=== PATIENT | female | born 1950 | race African-American/Black ===

== ENCOUNTER 2016-09-08 13:45 | Emergency (ER) | payer MEDICARE, BC ==
--- NOTE | 2016-09-08 14:15 | ER Document Report ---
ED General - General Mode of Arrival: Medic Information source: Patient TRAVEL OUTSIDE OF THE [place] IN LAST 30 DAYS: No - HPI Onset: Other - Refer to HPI Notes Similar symptoms previously: Yes Recently seen / treated by doctor: No <CIRA FLORES - Last Filed: 09/08/16 14:52> <CHAPOMARIBETH - Last Filed: 09/08/16 19:29> - General Stated Complaint: BLURRED VISION Time Seen by Provider: 09/08/16 14:02 Notes: Patient is a 66 year old female presenting to the Emergency Department for vision changes. Patient states on evening as she was driving home she experienced some double vision in her right eye. Patient states she also had some vague blurry vision in the right eye. Patient was able to close her right eye and use her left eye to drive home. Patient states she has had this before but when asked details about the previous event the patient does not stay focused and never answers this question since she begins talking about something else. Patient states she has not been able to drive since this has happened on . Patient states she feels a little tired but denies any weakness to her extremities. Patient also complains of some left lateral thigh pain which she states was onset after being moved from the stretcher to the bed. Patient has a history of hypertension and myasthenia gravis and is taking medications for both. Patient states that Dr. Gongora is sending her to see a "neurologist that she hasn't seen in a long time." Patient has no known drug allergies. PCP Dr. Gongora (CIRA FLORES) - Related Data Allergies/Adverse Reactions: bee pollen [Bee Pollen] Allergy (Verified 09/08/16 15:31) Past Medical History - General Information source: Patient - Social History Smoking Status: Never Smoker Cigarette use (# per day): No Chew tobacco use (# tins/day): No Smoking Education Provided: No Frequency of alcohol use: None Drug Abuse: None Family History: None Patient has suicidal ideation: No Patient has homicidal ideation: No - Past Medical History Cardiac Medical History: Reports: Hx Hypertension Musculoskeltal Medical History: Reports Hx Arthritis - osteoarthritis knees bilaterally Surgical Hx: Negative <CIRA FLORES - Last Filed: 09/08/16 14:52> Review of Systems - Review of Systems Constitutional: No symptoms reported EENT: See HPI, Blurred vision, Double vision Cardiovascular: No symptoms reported Respiratory: No symptoms reported Gastrointestinal: No symptoms reported Genitourinary: No symptoms reported Female Genitourinary: No symptoms reported Musculoskeletal: See HPI, Muscle pain - left lateral thigh Skin: No symptoms reported Hematologic/Lymphatic: No symptoms reported Neurological/Psychological: No symptoms reported -: Yes All other systems reviewed and negative <CIRA FLORES - Last Filed: 09/08/16 14:52> Physical Exam <CIRA FLORES - Last Filed: 09/08/16 14:52> <CHAPOMARIBETH Mccracken - Last Filed: 09/08/16 19:29> - Vital signs Vitals: BP Pulse Ox 171/91 H 100 09/08/16 14:03 09/08/16 14:03 - Notes Notes: GENERAL: Alert, interacts well. Mild distress. HEAD: Normocephalic, atraumatic. EYES: Appear normal. Pupils equal, round, and reactive to light. When looking to the left the patient's left eye does not go all the way to the left. Patient cannot do any extreme lateral gaze. Patient does get confused about which eye to close and has to be re-directed. The exam suggests that there is some extraocular muscle weakness and left eye lateral gaze weakness. ENT: Moist mucus membranes, tongue midline. NECK: Full range of motion. Supple. Trachea midline. LUNGS: Clear to auscultation bilaterally, no wheezes, rales, or rhonchi. No respiratory distress. HEART: Regular rate and rhythm. Loud systolic murmur that radiates into her neck. ABDOMEN: Soft, non-tender. Non-distended. Normal bowel sounds. EXTREMITIES: Moves all 4 extremities spontaneously. Osteoarthritis in the knees bilaterally. Patient in the left lateral thigh with flexion of the hip. Mild edema to the ankles bilaterally. NEUROLOGICAL: Alert and oriented x3. Normal speech. No focal neurological deficits. GSC 15. PSYCH: Normal affect, normal mood. SKIN: Warm, dry, normal turgor. No rashes or lesions noted. (CIRA FLORES) Course <CIRA FLORES - Last Filed: 09/08/16 14:52> - Laboratory Result Diagrams: 09/08/16 14:04 09/08/16 14:04 - Diagnostic Test Radiology reviewed: Image reviewed, Reports reviewed - Left femur x-ray does not show any acute bony abnormality. There is considerable stool seen in the pelvis. <MARIBETH COWAN - Last Filed: 09/08/16 19:29> - Re-evaluation Re-evalutation: 09/08/16 18:21 The patient is resting comfortably at this time. She reports her pain got much better after the pain pill. Her blood pressure was 202 systolic 30 minutes after she received Catapres 0.1 mg p.o. The blood pressure has progressively come down and is now at 102 systolic and the patient is asleep. He will be given 500 mL's of normal saline bolus and then recheck blood pressure (MARIBETH COWAN) - Vital Signs Vital signs: Temp Pulse Resp BP Pulse Ox 14 123/73 100 09/08/16 18:44 09/08/16 18:44 09/08/16 18:44 - Laboratory Laboratory results interpreted by me: 09/08/16 14:04 Calcium 10.4 H Discharge <CIRA FLORES - Last Filed: 09/08/16 14:52> <MARIBETH COWAN - Last Filed: 09/08/16 19:29> - Discharge Clinical Impression: Diplopia, Left thigh pain, Myasthenia gravis High blood pressure Qualifiers: Hypertension type: essential hypertension Qualified Code(s): I10 - Essential ( primary) hypertension Condition: Stable Disposition: HOME, SELF-CARE Additional Instructions: Your vision problems are probably due to the myasthenia gravis. Blood pressure was quite high today, but did come down with some additional medication. Your left thigh pain is probably due to a muscle strain when you are being transferred from the stretcher to the bed. Take the pain medication as dispensed today if needed for your back pain. Follow-up with Dr. Gongora in the office tomorrow for recheck. Referrals: JJ GONGORA MD [ACTIVE STAFF] - Follow up tomorrow Scribe Attestation: 09/08/16 18:31 I personally performed the services described in the documentation, reviewed and edited the documentation which was dictated to the scribe in my presence, and it accurately records my words and actions. (MARIBETH COWAN) Scribe Documentation - Scribe Written by Scribe:: Teodora Gunn 09/08/16 14:22 acting as scribe for :: Chapo <CIRA FLORES - Last Filed: 09/08/16 14:52>
[2016-09-08 15:10] LABS: ABSOLUTE BASOPHILS # (AUTO) 0.1 10^3/uL (0.0-0.2); ABSOLUTE EOSINOPHILS # (AUTO) 0.1 10^3/uL (0.0-0.6); ABSOLUTE LYMPHOCYTES (AUTO) 1.3 10^3/uL (0.5-4.7); ABSOLUTE MONOCYTES (AUTO) 0.4 10^3/uL (0.1-1.4); ABSOLUTE NEUT (AUTO) 4.8 10^3/uL (1.7-8.2); BASOPHILS % (AUTO) 1.1 % (0-2); EOSINOPHILS % (AUTO) 0.9 % (0-6); HEMATOCRIT 41.4 % (36.0-47.0); HGB HCT DIFFERENCE 0.6; LYMPHOCYTES % (AUTO) 19.7 % (13-45); MEAN CORPUSCULAR HEMOGLOBIN 30.5 pg (27.0-33.4); MEAN CORPUSCULAR HGB CONC 33.8 g/dL (32.0-36.0); MEAN CORPUSCULAR VOLUME 90 fl (80-97); MONOCYTES % (AUTO) 6.6 % (3-13); RED CELL DISTRIBUTION WIDTH 13.4 % (11.5-14.0); SEGMENTED NEUTROPHILS % (AUTO) 71.7 % (42-78); WHITE BLOOD COUNT 6.6 10^3/uL (4.0-10.5)
[2016-09-08 15:13] LABS: ALANINE AMINOTRANSFERASE 34 U/L (9-52); ALBUMIN 4.3 g/dL (3.5-5.0); ALKALINE PHOSPHATASE 104 U/L (38-126); ANION GAP 7 (5-19); ASPARTATE AMINO TRANSFERASE 23 U/L (14-36); BILIRUBIN,DIRECT 0.3 mg/dL (0.0-0.4); BILIRUBIN,TOTAL 0.7 mg/dL (0.2-1.3); BLOOD UREA NITROGEN 14 mg/dL (7-20); CALCIUM 10.4 mg/dL (8.4-10.2); CARBON DIOXIDE 29 mmol/L (22-30); CHLORIDE 107 mmol/L (98-107); CREATININE RESULT 0.81 mg/dL (0.52-1.25); GLUCOSE 96 mg/dL (75-110); POTASSIUM 4.3 mmol/L (3.6-5.0); SODIUM 143.2 mmol/L (137-145); TOTAL PROTEIN 7.7 g/dL (6.3-8.2)
--- NOTE | 2016-09-08 15:31 | RADIOLOGY REPORT (SQ) ---
EXAM DESCRIPTION: FEMUR LEFT COMPLETED DATE/TIME: 09/08/2016 2:58 pm REASON FOR STUDY: lateral thugh pain after moving onto bed from stre COMPARISON: None. NUMBER OF VIEWS: Two views. TECHNIQUE: Two radiographic images acquired of the left femur to include hip and knee in at least on e projection. LIMITATIONS: None. FINDINGS: MINERALIZATION: Osteopenia. BONES: No acute fracture. No worrisome bone lesions. SOFT TISSUES: No obvious swelling or foreign body. OTHER: No other significant finding. IMPRESSION: NO RADIOGRAPHIC EVIDENCE OF ACUTE INJURY. TECHNICAL DOCUMENTATION: JOB ID: [id number] [employer]- All Rights Reserved
[2016-09-08] MEDS ORDERED: CLONIDINE HCL 0.1 MG TABLET PO ONE ×2 (15:39→16:41)
[2016-09-08] MEDS ORDERED: ONDANSETRON 4 MG TAB.RAPDIS PO ONE (15:39)
[2016-09-08] MEDS ORDERED: OXYCODONE-ACETAMINOPHEN 5-325 MG TABLET PO ONE (15:39)
[2016-09-08 15:48] LABS: ERYTHROCYTE SEDIMENTATION RATE 13 mm/hr (0-30)
[2016-09-08 15:52] LABS: APPEARANCE,URINE CLEAR; BILIRUBIN,URINE NEGATIVE (NEGATIVE); GLUCOSE, URINE NEGATIVE (NEGATIVE); KETONES,URINE NEGATIVE (NEGATIVE); LEUKOCYTE ESTERASE,URINE NEGATIVE (NEGATIVE); NITRITE,URINE NEGATIVE (NEGATIVE); PROTEIN,URINE NEGATIVE (NEGATIVE); URINE SPECIFIC GRAVITY 1.004; UROBILINOGEN,URINE NEGATIVE mg/dL (<2.0)
[2016-09-08] MEDS ORDERED: NORMAL SALINE 500 ML IV ONE (18:20)
[2016-09-08] MEDS ORDERED: HYDROCODONE/ACETAMINOPHEN 5-325 MG 6 TAB/DSPK PO PRN (19:29)
[2016-09-08 20:16] VITALS: BP 117/68
== END 2016-09-08 20:10 | disposition home or self-care (01) ==
LOC: ER 13:45
DX: H53.2 Diplopia (principal); H53.8 Other visual disturbances; G70.00 Myasthenia gravis without (acute) exacerbation; M79.1 Myalgia; R53.83 Other fatigue; I10 Essential (primary) hypertension
CPT/HCPCS: 99284; 96360; 36415; 85025; 85652; 80053; 81001; 73552; A9270 ×4; J7040; S0119

== ENCOUNTER → 2016-10-11 | Outpatient (CLI) | payer MEDICARE, BC ==
--- NOTE | 2016-10-12 09:58 | RADIOLOGY REPORT (SQ) ---
EXAM DESCRIPTION: MRI HEAD WITHOUT COMPLETED DATE/TIME: 10/11/2016 5:20 pm REASON FOR STUDY: DIPLOPIA (H53.2) H53.2 DIPLOPIA COMPARISON: None. TECHNIQUE: Multiplanar imaging includes non-contrasted T1, T2, FLAIR, and Diffusion with ADC map seq uences. Additional T1 and T2 weighted images through the orbits. Images stored on PACS. LIMITATIONS: None. FINDINGS: ANATOMY: No anomalies. Normal vascular flow voids. Incidental empty sella. CSF SPACES: Normal in size and contour. No hemorrhage. CEREBRUM: High -signal intensity lesions scattered throughout the white matter on FLAIR imaging with distribution suggesting chronic micro-vascular ischemic change. Sulci and gyri normal in size and co ntour. No evidence of hemorrhage, mass or extraaxial fluid collection. POSTERIOR FOSSA: No signal alteration. No hemorrhage. No edema, masses or mass effect. Internal bryan tory canals, cerebello-pontine angles, mastoids normal. DIFFUSION: Negative for acute or sub-acute infarction. ORBITS: No masses. Globes normal. PARANASAL SINUSES: No fluid levels. Mucosa normal. OTHER: No other significant finding. IMPRESSION: MICROVASCULAR ISCHEMIC CHANGE. OTHERWISE UNREMARKABLE NONCONTRAST MRI OF BRAIN AND ORBI TS. EVIDENCE OF ACUTE STROKE: NO. TECHNICAL DOCUMENTATION: JOB ID: [id number] [employer]- All Rights Reserved
== END ==
LOC: RAD 15:04
PROVIDERS: ATTEND Ophthalmology
DX: H53.2 Diplopia (principal)
CPT/HCPCS: 70551

== ENCOUNTER 2017-08-22 07:49 | Emergency (ER) | payer MEDICARE, BC ==
--- NOTE | 2017-08-22 08:38 | ER Document Report ---
ED General - General Mode of Arrival: Ambulatory Information source: Patient TRAVEL OUTSIDE OF THE [place] IN LAST 30 DAYS: No <TINO SALDIVAR - Last Filed: 08/22/17 14:15> <MARIANELA FARIAS - Last Filed: 08/22/17 16:36> - General Chief Complaint: General Weakness Stated Complaint: GENERAL WEAKNESS Time Seen by Provider: 08/22/17 08:09 Notes: 67-year-old female with myasthenia gravis presenting to the emergency department today with complaints of generalized weakness. Patient states she was unable to get up out of her chair this morning and had to have help from her children which is not like her. Patient states she has had diarrhea for the last 2 days which she thinks may have contributed to her weakness. Patient denies any chest pain, nausea, vomiting, or urinary symptoms. (TINO SALDIVAR) - Related Data Allergies/Adverse Reactions: bee pollen [Bee Pollen] Allergy (Verified 08/22/17 07:52) Past Medical History - General Information source: Patient - Social History Smoking Status: Never Smoker Cigarette use (# per day): No Frequency of alcohol use: None Drug Abuse: None Lives with: Family Family History: None - Past Medical History Cardiac Medical History: Reports: Hx Hypertension Musculoskeletal Medical History: Reports Hx Arthritis - osteoarthritis knees bilaterally Surgical Hx: Negative <TINO SALDIVAR - Last Filed: 08/22/17 14:15> Review of Systems - Review of Systems Constitutional: See HPI, Weakness - generalized weakness EENT: No symptoms reported Cardiovascular: denies: Chest pain Respiratory: No symptoms reported Gastrointestinal: See HPI, Diarrhea. denies: Nausea, Vomiting Genitourinary: denies: Dysuria Female Genitourinary: No symptoms reported Musculoskeletal: No symptoms reported Skin: No symptoms reported Hematologic/Lymphatic: No symptoms reported Neurological/Psychological: No symptoms reported -: Yes All other systems reviewed and negative <TINO SALDIVAR - Last Filed: 08/22/17 14:15> Physical Exam <TINO SALDIVAR - Last Filed: 08/22/17 14:15> <MARIANELA FARIAS - Last Filed: 08/22/17 16:36> - Vital signs Vitals: Resp BP Pulse Ox 21 H 169/118 H 99 08/22/17 08:09 08/22/17 08:09 08/22/17 08:09 - Notes Notes: PHYSICAL EXAM GENERAL: Alert, interacts well. No acute distress. HEAD: Normocephalic, atraumatic. EYES: Pupils equal, round, and reactive to light. Extraocular movements intact. Excessive tearing from the right eye. Bilateral ptosis. ENT: Oral mucosa moist, tongue midline. NECK: Full range of motion. Supple. Trachea midline. LUNGS: Clear to auscultation bilaterally, no wheezes, rales, or rhonchi. No respiratory distress. HEART: Regular rate and rhythm. 2/6 holosystolic murmur, no gallops or rubs. ABDOMEN: Soft, non-tender. Non-distended. Bowel sounds present in all 4 quadrants. No guarding, rigidity, or rebound. EXTREMITIES: Moves all 4 extremities spontaneously. Trace pitting edema on the right lower extremity, 1+ pitting edema on the left lower extremity. Radial and dorsalis pedis pulses 2/4 bilaterally. No cyanosis. NEUROLOGICAL: Alert and oriented x3. Normal speech. Client Services Administrator strength 4/5 on the right, 5/5 on the left. Cranial nerves II through XII grossly intact bilaterally. PSYCH: Normal affect, normal mood. SKIN: Warm, dry, normal turgor. No rashes or lesions noted. (TINO SALDIVAR) Course - Laboratory Result Diagrams: 08/22/17 08:37 08/22/17 08:37 <TINO SALDIVAR - Last Filed: 08/22/17 14:15> - Laboratory Result Diagrams: 08/22/17 08:37 08/22/17 08:37 <MARIANELA FARIAS - Last Filed: 08/22/17 16:36> - Re-evaluation Re-evalutation: 08/22/17 11:07 CBC unremarkable, CMP unremarkable, cardiac enzymes negative, urinalysis shows small blood but only 1 RBC, 6 WBCs, 3+ bacteria but 4 squamous epithelial cells , consistent with colonization rather than infection. Chest x-ray shows no acute process, CT scan of the head shows chronic microvascular ischemia but no acute process. NIH stroke scale is a 1 with very slight weakness on her right arm compared to her left arm. This is unchanged for the past month per patient I did discuss this patient with Dr. Gongora who states this is very much her baseline, he would like us to do a trial ambulation with this patient and if she is able to ambulate discharged to home for Friday morning follow-up. 08/22/17 15:35 CBC unremarkable, CMP grossly unremarkable, cardiac enzymes negative, urinalysis shows small, 1 RBC, specific gravity is 1.006 which does not support dehydration although family is quite concerned that she has had 2 days worth of diarrhea which has since resolved but they think because of this 2 days worth of diarrhea she may be dehydrated so I have agreed to give her a liter of normal saline particularly as she does not have any history of congestive heart failure. Chest x-ray shows no acute process. CT scan of head shows mild chronic changes microvascular ischemia, no acute process, no evidence of acute stroke, also no evidence that the slight right hand weakness is due to an old stroke. Initially we attempted to ambulate the patient and she was able to stand on her own but she was unable to take any steps. We then realized that he had been more than 6 hours since she had last had a dose of her pyridostigmine. Patient was given a dose of her pyridostigmine at her usual dose and fed, she now feels somewhat better, was able to stand and ambulate several steps with a walker that we barred from another department. Patient does have a walker at home as well. I discussed in depth with the family that this appears to be a subacute exacerbation of a chronic problem and that it is very important that the patient follow-up with the neuro-insulation cupola charger to home Dr. Gongora has referred her. Also reminded them of the importance of following with with Dr. Gongora as requested on Friday. Patient will be discharged home. I did discuss extensively with the patient and the family that if despite following up with a specialist and further follow-up with Dr. Gongora she continues to get weaker she may end up needing to be admitted and possibly end up needing to go to a senior care as she may not be able to care for herself at home much longer. I have also made a referral to our ED social service assistant to see if there is any help that we can give this patient forgetting transport to and from her appointments as she does not drive and she lives with her son and her daughter who also do not have helper driver's licenses. (MARIANELA FARIAS) - Vital Signs Vital signs: Temp Pulse Resp BP Pulse Ox 97.6 F 16 186/74 H 98 07/13/18 08:15 08/22/17 15:01 08/22/17 15:01 08/22/17 15:01 - Laboratory Laboratory results interpreted by me: 08/22/17 08/22/17 08:09 08:37 Carbon Dioxide 33 H AST 48 H Urine Protein 30 H Urine Blood SMALL H - EKG Interpretation by Me Additional EKG results interpreted by me: 08/22/17 15:38 EKG shows sinus rhythm rate of 66, normal size, normal intervals, no ST segment elevations or depressions, no T-wave inversions per my interpretation. (MARIANELA FAIRAS) Discharge <TINO SALDIVAR - Last Filed: 08/22/17 14:15> <MARIANELA FARIAS - Last Filed: 08/22/17 16:36> - Discharge Clinical Impression: Myasthenia gravis, Generalized weakness Diarrhea Qualifiers: Diarrhea type: unspecified type Qualified Code(s): R19.7 - Diarrhea, unspecified Condition: Stable Disposition: HOME, SELF-CARE Additional Instructions: Dr. Gongora would like to see you in his office first thing Friday. It is also very important that you follow-up with the specialist, a neuro- insulation cupola charger, to whom Dr. Gongora has referred you. This is the specialist will be able to adjust her medications and hopefully help you have more energy. I have also made a referral to our ED social service assistant to see if there is any way that we can arrange help for you to find rides to your appointments. This will likely not happen before your appointment with Dr. Gongora on Friday. Please set an alarm at your house so that you are taking your medications scheduled every 6 hours as they are supposed to be taken. Referrals: JJ GONGORA MD [Primary Care Provider] - 08/25/17 8:00 am Scribe Attestation: 08/22/17 16:35 I personally performed the services described in the documentation, reviewed and edited the documentation which was dictated to the scribe in my presence, and it accurately records my words and actions. (MARIANELA FARIAS) Scribe Documentation - Scribe Written by Scribe:: Teodora Calderon, 08/22/2017 1450 acting as scribe for :: Benjamin <TINO SALDIVAR - Last Filed: 08/22/17 14:15>
[2017-08-22 08:54] LABS: APPEARANCE,URINE SLIGHTLY-CLOUDY; BILIRUBIN,URINE NEGATIVE (NEGATIVE); COLOR,URINE YELLOW; GLUCOSE, URINE NEGATIVE (NEGATIVE); KETONES,URINE NEGATIVE (NEGATIVE); LEUKOCYTE ESTERASE,URINE NEGATIVE (NEGATIVE); NITRITE,URINE NEGATIVE (NEGATIVE); PROTEIN,URINE 30 mg/dL (NEGATIVE); URINE SPECIFIC GRAVITY 1.006; UROBILINOGEN,URINE NEGATIVE mg/dL (<2.0)
--- NOTE | 2017-08-22 08:58 | RADIOLOGY REPORT (SQ) ---
EXAM DESCRIPTION: CHEST 2 VIEWS COMPLETED DATE/TIME: 08/22/2017 8:48 am REASON FOR STUDY: weakness, SOB, fatigue COMPARISON: Two-view chest 12/23/2013 EXAM PARAMETERS: NUMBER OF VIEWS: two views TECHNIQUE: Digital Frontal and Lateral radiographic views of the chest acquired. RADIATION DOSE: NA LIMITATIONS: none FINDINGS: LUNGS AND PLEURA: No opacities, masses or pneumothorax. No pleural effusion. MEDIASTINUM AND HILAR STRUCTURES: No masses or contour abnormalities. HEART AND VASCULAR STRUCTURES: Stable borderline cardiomegaly BONES: Osteopenic. No acute changes HARDWARE: None in the chest. OTHER: No other significant finding. IMPRESSION: NO ACUTE RADIOGRAPHIC FINDING IN THE CHEST. TECHNICAL DOCUMENTATION: JOB ID: [id number] [employer]- All Rights Reserved Reading location - IP/workstation name: [email or web address]
[2017-08-22 09:08] LABS: ABSOLUTE BASOPHILS # (AUTO) 0.1 10^3/uL (0.0-0.2); ABSOLUTE EOSINOPHILS # (AUTO) 0.1 10^3/uL (0.0-0.6); ABSOLUTE MONOCYTES (AUTO) 0.4 10^3/uL (0.1-1.4); ABSOLUTE NEUT (AUTO) 4.8 10^3/uL (1.7-8.2); BASOPHILS % (AUTO) 1.1 % (0-2); EOSINOPHILS % (AUTO) 0.9 % (0-6); HEMATOCRIT 42.1 % (36.0-47.0); HEMOGLOBIN 14.4 g/dL (12.0-15.5); LYMPHOCYTES % (AUTO) 16.3 % (13-45); MEAN CORPUSCULAR HEMOGLOBIN 30.2 pg (27.0-33.4); MEAN CORPUSCULAR HGB CONC 34.2 g/dL (32.0-36.0); MEAN CORPUSCULAR VOLUME 88 fl (80-97); MONOCYTES % (AUTO) 6.3 % (3-13); PLATELET COUNT 284 10^3/uL (150-450); RED BLOOD COUNT 4.76 10^6/uL (3.72-5.28); RED CELL DISTRIBUTION WIDTH 12.8 % (11.5-14.0); SEGMENTED NEUTROPHILS % (AUTO) 75.4 % (42-78); TOTAL CELLS COUNTED % (AUTO) 100 %; WHITE BLOOD COUNT 6.4 10^3/uL (4.0-10.5)
--- NOTE | 2017-08-22 09:23 | RADIOLOGY REPORT (SQ) ---
EXAM DESCRIPTION: CT HEAD WITHOUT COMPLETED DATE/TIME: 08/22/2017 9:01 am REASON FOR STUDY: right sided weakness x 1 month COMPARISON: None. TECHNIQUE: Axial images acquired through the brain without intravenous contrast. Images reviewed wi th bone, brain and subdural windows. Additional sagittal and coronal reconstructions were generated. Images stored on PACS. All CT scanners at this facility use dose modulation, iterative reconstruction, and/or weight based d osing when appropriate to reduce radiation dose to as low as reasonably achievable (ALARA). [facility]: Dose Right [facility]: CareDose [facility]: Dose Right [facility]: Teradose 4D [facility]: [employer] RADIATION DOSE: CT Rad equipment meets quality standard of care and radiation dose reduction techniq ues were employed. CTDIvol: 48.6 mGy. DLP: 929 mGy-cm. mGy. LIMITATIONS: None. FINDINGS: VENTRICLES: Normal CEREBRUM: No masses. No hemorrhage. No midline shift. Areas of low density in the white matter mos t likely due to chronic micro-vascular ischemic change. No evidence for acute infarction. CEREBELLUM: No masses. No hemorrhage. No alteration of density. No evidence for acute infarction. EXTRAAXIAL SPACES: Mild age-related involutional change. No fluid collections. No masses. ORBITS AND GLOBE: No intra- or extraconal masses. Normal contour of globe without masses. CALVARIUM: No fracture. PARANASAL SINUSES: No fluid or mucosal thickening. SOFT TISSUES: No mass or hematoma. OTHER: No other significant finding. IMPRESSION: MILD CHRONIC CHANGES Of MICROVASCULAR ISCHEMIA. NO ACUTE PROCESS. EVIDENCE OF ACUTE STROKE: NO. TECHNICAL DOCUMENTATION: JOB ID: [id number] Quality ID # [id number]: Final reports with documentation of one or more dose reduction techniques (e.g., Au tomated exposure control, adjustment of the mA and/or kV according to patient size, use of iterative reconstruction technique) 2010 [employer]- All Rights Reserved Reading location - IP/workstation name: [email or web address]
[2017-08-22 09:31] LABS: BLOOD UREA NITROGEN 7 mg/dL (7-20); CALCIUM 10.2 mg/dL (8.4-10.2); GLUCOSE 105 mg/dL (75-110)
[2017-08-22 09:32] LABS: ALANINE AMINOTRANSFERASE 24 U/L (9-52); ALBUMIN 4.2 g/dL (3.5-5.0); ALKALINE PHOSPHATASE 89 U/L (38-126); ANION GAP 5 (5-19); ASPARTATE AMINO TRANSFERASE 48 U/L (14-36); BILIRUBIN,DIRECT 0.3 mg/dL (0.0-0.4); BILIRUBIN,TOTAL 1.1 mg/dL (0.2-1.3); CARBON DIOXIDE 33 mmol/L (22-30); CHLORIDE 106 mmol/L (98-107); CREATINE KINASE 94 U/L (30-135); POTASSIUM 3.7 mmol/L (3.6-5.0); SODIUM 144.4 mmol/L (137-145); TOTAL PROTEIN 7.7 g/dL (6.3-8.2)
[2017-08-22 10:17] LABS: CREATINE KINASE MB 1.14 ng/mL (<4.55)
[2017-08-22 10:19] LABS: TROPONIN I < 0.012 ng/mL
[2017-08-22] MEDS ORDERED: PYRIDOSTIGMINE BROMIDE 60 MG TABLET PO ONE (11:59)
[2017-08-22] MEDS ORDERED: NORMAL SALINE 1000 ML 1,000 ML IV ONE (15:08)
[2017-08-22 16:59] VITALS: BP 207/84
--- NOTE | 2017-08-22 19:39 | EKG REPORT ---
SEVERITY:- ABNORMAL ECG - SINUS RHYTHM RIGHT ATRIAL ABNORMALITY : Confirmed by: Hillary Clayton MD 22-Aug-2017 19:38:16
== END 2017-08-22 16:59 | disposition home or self-care (01) ==
LOC: ER 07:49
DX: G70.00 Myasthenia gravis without (acute) exacerbation (principal); R53.1 Weakness; R19.7 Diarrhea, unspecified; I10 Essential (primary) hypertension
CPT/HCPCS: 93005; 99285; 96360; 36415; 87086; 82553; 82550; 85025; 80053; 81001; 84484; 71046; 70450; 93010; A9270; J7030; J3490

== ENCOUNTER 2017-10-19 07:35 | Observation (INO) | payer MEDICARE, BC ==
[2017-10-19] MEDS ORDERED: MORPHINE SULFATE 10 MG/ML INJ IV ONE (07:51)
--- NOTE | 2017-10-19 07:57 | ER Document Report ---
ED General - General Chief Complaint: Hip Pain Stated Complaint: RIGHT LEG PAIN Time Seen by Provider: 10/19/17 07:42 TRAVEL OUTSIDE OF THE [place] IN LAST 30 DAYS: No - HPI Notes: Patient is a 67-year-old female that presents to the emergency department for chief complaint of generalized weakness and right hip pain. Patient presents to the emergency room by EMS for increased weakness in her lower extremities and inability to ambulate. She has a history of myasthenia gravis and has had increasing lower extremity weakness. This morning patient has had a more difficult time ambulating. She was so weak in her legs that she fell backwards landing on the toilet. This exacerbated her chronic right hip pain. She states the pain is located in the right hip and radiates down the lateral right thigh. It is worse with movement and palpation. Relieved with rest. She has not taken any pkeg-ruh-fzeeowk medication for pain. She is usually able to ambulate with a walker. She denies chest pain, shortness of breath, fevers, nausea, vomiting, abdominal pain and dysuria. Past Medical History: Myasthenia gravis, hypertension Past Surgical History: Unknown Social History: Denies drugs alcohol and tobacco Family History: Reviewed and noncontributory for presenting illness Allergies: Reviewed, see documented allergy list. REVIEW OF SYSTEMS: CONSTITUTIONAL : No fever No chills No diaphoresis No recent illness EENT: No vision changes No congestion No sore throat CARDIOVASCULAR: No chest pain No palpitations No shortness of breath RESPIRATORY: No shortness of breath No cough No difficulty breathing GASTROINTESTINAL: No abdominal pain No nausea No vomiting No diarrhea GENITOURINARY: No dysuria No hematuria No difficulty urinating MUSCULOSKELETAL: No back pain Right hip pain No arm pain SKIN: No rashes No lesions LYMPHATIC: No swollen, enlarged glands. NEUROLOGICAL: No lightheadedness No headache weakness No paresthesias PSYCHIATRIC: No anxiety No depression PHYSICAL EXAMINATION: Vital signs reviewed, nursing noted reviewed. GENERAL: Well-appearing, well-nourished and in no acute distress. HEAD: Atraumatic, normocephalic. EYES: Eyes appear normal, extraocular movements intact, sclera anicteric, conjunctiva are normal. ENT: nares patent, oropharynx clear without exudates. Moist mucous membranes. NECK: Normal range of motion, supple without lymphadenopathy LUNGS: Breath sounds clear to auscultation bilaterally and equal. No wheezes rales or rhonchi. HEART: Regular rate and rhythm without murmurs ABDOMEN: Soft, nontender, normoactive bowel sounds. No rebound, guarding, or rigidity. No masses appreciated. EXTREMITIES: Right hip tender and painful ROM. Trace nonpitting lower extremity edema, symmetric bilaterally. NEUROLOGICAL: 5/5 dorsiflexion plantarflexion laterally. Unable to lift either leg against gravity, right weakness greater than left. Sensory intact. A&O 4 PSYCH: Normal mood, normal affect. 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 Nursing notes reviewed. Patient given morphine for pain. 10/19/17 10:30 Patient reevaluated and physical exam is unchanged. She was able to ambulate with a walker and assistance but had an unsteady gait. She is a high risk for falls if ambulating at home alone. Lab work is unremarkable. Her electrolytes are normal. EKG showed no acute ischemia. Chest x-ray shows no pneumonia or other acute process. Patient does not feel comfortable being discharged home because she has unable to stand and ambulate without assistance. Her family wishes for her to be admitted in the hospital. I did explain that she is qualified for an observation stay and she will be discharged home tomorrow. Patient and family understand and would like her to be watched tonight. Case discussed with admitting physician Dr. Bales who accepted admission. Patient stable at time of admission. 10/19/17 10:32 Chest X-Ray 10/19/17 07:50 IMPRESSION: NO ACUTE DISEASE. Hip/Pelvis X-Ray 10/19/17 07:50 IMPRESSION: Severe degenerative arthritis of both hips. Marked degenerative arthritis of the SI joints. Laboratory 10/19/17 10/19/17 10/19/17 07:55 07:55 07:55 WBC 7.5 RBC 4.44 Hgb 13.5 Hct 39.6 MCV 89 MCH 30.3 MCHC 34.0 RDW 12.9 Plt Count 281 Seg Neutrophils % 69.4 Lymphocytes % 20.8 Monocytes % 7.6 Eosinophils % 0.7 Basophils % 1.5 Absolute Neutrophils 5.2 Absolute Lymphocytes 1.6 Absolute Monocytes 0.6 Absolute Eosinophils 0.1 Absolute Basophils 0.1 Sodium 142.2 Potassium 3.8 Chloride 111 H Carbon Dioxide 32 H Anion Gap -1 L BUN 5 L Creatinine 0.70 Est GFR ( Amer) > 60 Est GFR (Non-Af Amer) > 60 Glucose 93 Calcium 10.5 H Troponin I < 0.012 Urine Color Urine Appearance Urine pH Ur Specific [place] Urine Protein Urine Glucose (UA) Urine Ketones Urine Blood Urine Nitrite Urine Bilirubin Urine Urobilinogen Ur Leukocyte Esterase Urine WBC (Auto) Urine RBC (Auto) Urine Bacteria (Auto) Squamous Epi Cells Auto Urine Ascorbic Acid 10/19/17 08:15 WBC RBC Hgb Hct MCV MCH MCHC RDW Plt Count Seg Neutrophils % Lymphocytes % Monocytes % Eosinophils % Basophils % Absolute Neutrophils Absolute Lymphocytes Absolute Monocytes Absolute Eosinophils Absolute Basophils Sodium Potassium Chloride Carbon Dioxide Anion Gap BUN Creatinine Est GFR ( Amer) Est GFR (Non-Af Amer) Glucose Calcium Troponin I Urine Color YELLOW Urine Appearance CLEAR Urine pH 6.0 Ur Specific [place] 1.003 Urine Protein NEGATIVE Urine Glucose (UA) NEGATIVE Urine Ketones NEGATIVE Urine Blood NEGATIVE Urine Nitrite NEGATIVE Urine Bilirubin NEGATIVE Urine Urobilinogen NEGATIVE Ur Leukocyte Esterase NEGATIVE Urine WBC (Auto) 5 Urine RBC (Auto) 1 Urine Bacteria (Auto) 3+ Squamous Epi Cells Auto 2 Urine Ascorbic Acid NEGATIVE - Vital Signs Vital signs: Temp Pulse Resp BP Pulse Ox 97.8 F 13 163/73 H 99 10/19/17 08:01 10/19/17 09:04 10/19/17 09:04 10/19/17 09:04 - Laboratory Result Diagrams: 10/19/17 07:55 10/19/17 07:55 Laboratory results interpreted by me: 10/19/17 07:55 Chloride 111 H Carbon Dioxide 32 H Anion Gap -1 L BUN 5 L Calcium 10.5 H - EKG Interpretation by Me Additional EKG results interpreted by me: 10/19/17 08:05 Normal sinus rhythm, rate 78, normal axis, no ectopy, no QT prolongation Discharge - Discharge Clinical Impression: Weakness Condition: Stable Disposition: ADMITTED OBSERVATION Admitting Provider: Hospitalist Unit Admitted: Medical Floor Referrals: JJ HUGHES MD [Primary Care Provider] - Follow up as needed
[2017-10-19 08:13] LABS: ABSOLUTE BASOPHILS # (AUTO) 0.1 10^3/uL (0.0-0.2); ABSOLUTE EOSINOPHILS # (AUTO) 0.1 10^3/uL (0.0-0.6); ABSOLUTE LYMPHOCYTES (AUTO) 1.6 10^3/uL (0.5-4.7); ABSOLUTE MONOCYTES (AUTO) 0.6 10^3/uL (0.1-1.4); ABSOLUTE NEUT (AUTO) 5.2 10^3/uL (1.7-8.2); BASOPHILS % (AUTO) 1.5 % (0-2); EOSINOPHILS % (AUTO) 0.7 % (0-6); HEMATOCRIT 39.6 % (36.0-47.0); HEMOGLOBIN 13.5 g/dL (12.0-15.5); LYMPHOCYTES % (AUTO) 20.8 % (13-45); MEAN CORPUSCULAR HEMOGLOBIN 30.3 pg (27.0-33.4); MEAN CORPUSCULAR VOLUME 89 fl (80-97); MONOCYTES % (AUTO) 7.6 % (3-13); PLATELET COUNT 281 10^3/uL (150-450); RED BLOOD COUNT 4.44 10^6/uL (3.72-5.28); RED CELL DISTRIBUTION WIDTH 12.9 % (11.5-14.0); SEGMENTED NEUTROPHILS % (AUTO) 69.4 % (42-78); TOTAL CELLS COUNTED % (AUTO) 100 %; WHITE BLOOD COUNT 7.5 10^3/uL (4.0-10.5)
[2017-10-19 08:29] LABS: BLOOD UREA NITROGEN 5 mg/dL (7-20); CALCIUM 10.5 mg/dL (8.4-10.2); CHLORIDE 111 mmol/L (98-107); GLUCOSE 93 mg/dL (75-110); POTASSIUM 3.8 mmol/L (3.6-5.0)
--- NOTE | 2017-10-19 08:30 | EKG REPORT ---
SEVERITY:- NORMAL ECG - SINUS RHYTHM : Confirmed by: Dash Sheridan MD 19-Oct-2017 08:30:03
[2017-10-19 08:34] LABS: CARBON DIOXIDE 32 mmol/L (22-30); SODIUM 142.2 mmol/L (137-145)
[2017-10-19 08:35] LABS: ANION GAP -1 (5-19)
[2017-10-19 08:55] LABS: APPEARANCE,URINE CLEAR; BILIRUBIN,URINE NEGATIVE (NEGATIVE); COLOR,URINE YELLOW; GLUCOSE, URINE NEGATIVE (NEGATIVE); KETONES,URINE NEGATIVE (NEGATIVE); LEUKOCYTE ESTERASE,URINE NEGATIVE (NEGATIVE); NITRITE,URINE NEGATIVE (NEGATIVE); PROTEIN,URINE NEGATIVE (NEGATIVE); URINE SPECIFIC GRAVITY 1.003; UROBILINOGEN,URINE NEGATIVE mg/dL (<2.0)
--- NOTE | 2017-10-19 09:05 | RADIOLOGY REPORT (SQ) ---
EXAM DESCRIPTION: CHEST SINGLE VIEW COMPLETED DATE/TIME: 10/19/2017 8:55 am REASON FOR STUDY: chest pain COMPARISON: None. EXAM PARAMETERS: NUMBER OF VIEWS: One view. TECHNIQUE: Single frontal radiographic view of the chest acquired. RADIATION DOSE: NA LIMITATIONS: None. FINDINGS: LUNGS AND PLEURA: No acute infiltrates or effusions. MEDIASTINUM AND HILAR STRUCTURES: No masses. Contour normal. HEART AND VASCULAR STRUCTURES: The heart is normal. The pulmonary vasculature is normal. BONES: Degenerative changes at the AC joints. HARDWARE: None in the chest. OTHER: Chest leads in place. IMPRESSION: NO ACUTE DISEASE. TECHNICAL DOCUMENTATION: JOB ID: [id number] 2010 [email or web address]- All Rights Reserved Reading location - IP/workstation name: [email or web address]
--- NOTE | 2017-10-19 09:08 | RADIOLOGY REPORT (SQ) ---
EXAM DESCRIPTION: HIP RIGHT AP/LATERAL COMPLETED DATE/TIME: 10/19/2017 8:55 am REASON FOR STUDY: hip pain COMPARISON: None. NUMBER OF VIEWS: Two views. TECHNIQUE: AP pelvis and additional frog-leg view of the right hip. LIMITATIONS: None. FINDINGS: MINERALIZATION: Normal. RIGHT HIP: There is marked degenerative arthritis of the right hip with degenerative sclerosis of the femoral head and acetabulum with subchondral cystic formation within the femoral head and acetabulum . Uniform narrowing of the hip joint. LEFT HIP: Subchondral cystic change and minimal sclerosis at left acetabulum and left femoral head. PUBIS AND ISCHIUM: No fracture. PELVIS: No fracture. SACRUM: There is marked degenerative sclerosis and irregularity of the SI joints noted. LOWER LUMBAR SPINE: Lumbar spondylosis. SOFT TISSUES: No findings. OTHER: No other significant finding. IMPRESSION: Severe degenerative arthritis of both hips. Marked degenerative arthritis of the SI danay nts. TECHNICAL DOCUMENTATION: JOB ID: [id number] [id number] 2010 [employer]- All Rights Reserved Reading location - IP/workstation name: [email or web address]
[2017-10-19] MEDS: AMLODIPINE BESYLATE 5 MG TABLET PO SCH (14:12)
[2017-10-19] MEDS ORDERED: ENOXAPARIN SODIUM INJ 30 MG/0.3 ML DISP.SYRIN SUBCUT ONE (15:00)
[2017-10-19] MEDS: RINGERS SOLUTION,LACTATED 1,000 ML IV PRN (15:10)
--- NOTE | 2017-10-19 16:37 | PDOC H&P ---
History of Present Illness Admission Date/PCP: 10/19/17 10:45 JJ HUGHES MD History of Present Illness: JULIANN OROZCO is a 67 year old female with known Myasthenia gravis. The patient usually is able to ambulate with her walker. She states that in the last couple of days she has had right lower extremity pain and that she has not been able to walk for this reason. She states that for this reason she has not been able to get her self to the bathroom and that her family cannot help her. As I see her eyelids bilaterally are barely open, but she has only just taken her mestinon in front of me today. Past Medical History Cardiac Medical History: Reports: Hypertension Neurological Medical History: Reports: Other - Myasthenia gravis Musculoskeltal Medical History: Reports: Arthritis - osteoarthritis knees bilaterally Social History Smoking Status: Unknown if Ever Smoked Frequency of Alcohol Use: None Hx Recreational Drug Use: No Drugs: None Hx Prescription Drug Abuse: No Family History Family History: None Parental Family History Reviewed: Yes Children Family History Reviewed: Yes Sibling(s) Family History Reviewed.: Yes Medication/Allergy Home Medications: Amlodipine Besylate [Norvasc 5 mg Tablet] 5 mg PO DAILY 12/23/13 Pyridostigmine [place] [Mestinon 60 mg Tablet] 60 mg PO Q6 12/23/13 Allergies/Adverse Reactions: bee pollen [Bee Pollen] Allergy (Verified 08/22/17 07:52) Review of Systems Constitutional: PRESENT: weakness. ABSENT: chills, fever(s) Eyes: ABSENT: visual disturbances Ears: ABSENT: hearing changes Cardiovascular: ABSENT: chest pain, dyspnea on exertion, orthropnea Respiratory: ABSENT: cough, dyspnea, sputum Gastrointestinal: ABSENT: abdominal pain, bloating, diarrhea, heartburn, nausea , vomiting Musculoskeletal: PRESENT: other - Right hip and leg pain. Pt states that the right leg is turned outside. Integumentary: ABSENT: lesions, rash, wounds Neurological: PRESENT: frequent falls. ABSENT: convulsions, paresthesias, syncope, vertigo Psychiatric: ABSENT: anxiety, depression Endocrine: ABSENT: cold intolerance, polydipsia, polyphagia, polyuria Hematologic/Lymphatic: PRESENT: easy bleeding, easy bruising Physical Exam Vital Signs: Temp Pulse Resp BP Pulse Ox 98.4 F 84 18 150/65 H 100 10/19/17 15:09 10/19/17 15:09 10/19/17 15:09 10/19/17 15:10/19/17 15:09 Intake & Output 10/18/17 10/19/17 10/20/17 06:59 06:59 06:59 Weight 74.5 kg General appearance: PRESENT: no acute distress, cooperative Eye exam: PRESENT: other - Bilateral Ptosis. The patient takes mestinon 60mg [id number]. She has just only taken her medication this morning as I enter the room. Ear exam: PRESENT: normal external ear exam. ABSENT: bleeding, drainage Mouth exam: PRESENT: dry mucosa, neck supple, tongue midline Neck exam: ABSENT: JVD, lymphadenopathy, tenderness, thyromegaly Respiratory exam: PRESENT: other - No increased work of breathing.. ABSENT: rales, rhonchi, wheezes Cardiovascular exam: PRESENT: RRR, other - No lateral PMI. No thrills.. ABSENT : diastolic murmur, rubs, systolic murmur Pulses: PRESENT: other - Diminished distal pulses. GI/Abdominal exam: PRESENT: soft. ABSENT: hernia, mass, organolmegaly, tenderness Extremities exam: ABSENT: clubbing, pedal edema, tenderness Musculoskeletal exam: PRESENT: normal inspection. ABSENT: deformity, dislocation, tenderness Neurological exam: PRESENT: alert, awake, oriented to person, oriented to place , oriented to time, oriented to situation, CN II-XII grossly intact. ABSENT: motor sensory deficit Psychiatric exam: PRESENT: appropriate affect, normal mood Skin exam: PRESENT: dry, intact, warm Results Laboratory Results: 10/19/17 10/19/17 10/19/17 07:55 07:55 07:55 WBC 7.5 RBC 4.44 Hgb 13.5 Hct 39.6 MCV 89 MCH 30.3 MCHC 34.0 RDW 12.9 Plt Count 281 Seg Neutrophils % 69.4 Lymphocytes % 20.8 Monocytes % 7.6 Eosinophils % 0.7 Basophils % 1.5 Absolute Neutrophils 5.2 Absolute Lymphocytes 1.6 Absolute Monocytes 0.6 Absolute Eosinophils 0.1 Absolute Basophils 0.1 Sodium 142.2 Potassium 3.8 Chloride 111 H Carbon Dioxide 32 H Anion Gap -1 L BUN 5 L Creatinine 0.70 Est GFR ( Amer) > 60 Glucose 93 Calcium 10.5 H Troponin I < 0.012 Urine Color Urine Appearance Urine pH Ur Specific [place] Urine Protein Urine Glucose (UA) Urine Ketones Urine Blood Urine Nitrite Urine Bilirubin Urine Urobilinogen Ur Leukocyte Esterase Urine WBC (Auto) Urine RBC (Auto) Urine Bacteria (Auto) Squamous Epi Cells Auto Urine Ascorbic Acid 10/19/17 08:15 WBC RBC Hgb Hct MCV MCH MCHC RDW Plt Count Seg Neutrophils % Lymphocytes % Monocytes % Eosinophils % Basophils % Absolute Neutrophils Absolute Lymphocytes Absolute Monocytes Absolute Eosinophils Absolute Basophils Sodium Potassium Chloride Carbon Dioxide Anion Gap BUN Creatinine Est GFR ( Amer) Glucose Calcium Troponin I Urine Color YELLOW Urine Appearance CLEAR Urine pH 6.0 Ur Specific [place] 1.003 Urine Protein NEGATIVE Urine Glucose (UA) NEGATIVE Urine Ketones NEGATIVE Urine Blood NEGATIVE Urine Nitrite NEGATIVE Urine Bilirubin NEGATIVE Urine Urobilinogen NEGATIVE Ur Leukocyte Esterase NEGATIVE Urine WBC (Auto) 5 Urine RBC (Auto) 1 Urine Bacteria (Auto) 3+ Squamous Epi Cells Auto 2 Urine Ascorbic Acid NEGATIVE Impressions: Chest X-Ray 10/19/17 07:50 IMPRESSION: NO ACUTE DISEASE. Hip/Pelvis X-Ray 10/19/17 07:50 IMPRESSION: Severe degenerative arthritis of both hips. Marked degenerative arthritis of the SI joints. Assessment & Plan - Diagnosis (1) Right leg pain Is this a current diagnosis for this admission?: Yes Plan: X-ray of the right hip and leg were negative for fracture. I will check a CT as it does appear that the leg is externally rotated. (2) Myasthenia gravis Is this a current diagnosis for this admission?: Yes Plan: Continue mestinon. (3) Weakness Is this a current diagnosis for this admission?: Yes Plan: The patient will need rehab. (4) Ambulatory dysfunction Is this a current diagnosis for this admission?: Yes Plan: Will need rehab. - Time Time Spent: 50 to 70 Minutes Medications reviewed and adjusted accordingly: Yes Anticipated discharge: Acute Rehab - Inpatient Certification Based on my medical assessment, after consideration of the patient's comorbidities, presenting symptoms, or acuity I expect that the services needed warrant INPATIENT care.: No I certify that my determination is in accordance with my understanding of Medicare's requirements for reasonable and necessary INPATIENT services [42 CFR 412.3e].: No Medical Necessity: Risk of Complication if Not Cared For in Hospital, Risk of Diagnosis Which Will Require Inpatient Eval/Care/Monitoring
[2017-10-19] MEDS: PYRIDOSTIGMINE BROMIDE 60 MG TABLET PO SCH (17:20)
--- NOTE | 2017-10-19 18:39 | RADIOLOGY REPORT (SQ) ---
EXAM DESCRIPTION: CT RT LOWER EXTREMITY WITHOUT COMPLETED DATE/TIME: 10/19/2017 5:14 pm REASON FOR STUDY: rt hip pain/right leg pain R53.1 WEAKNESS COMPARISON: None. TECHNIQUE: CT scan of the right hip and femur performed without intravenous or oral contrast. Image s reviewed with soft tissue and bone windows. Reconstructed coronal and sagittal MPR images reviewed . All images stored on PACS. All CT scanners at this facility use dose modulation, iterative reconstruction, and/or weight based d osing when appropriate to reduce radiation dose to as low as reasonably achievable (ALARA). [facility]: Dose Right [facility]: CareDose [facility]: Dose Right [facility]: Teradose 4D [facility]: Smart Blottr RADIATION DOSE: CT Rad equipment meets quality standard of care and radiation dose reduction techniq ues were employed. CTDIvol: 4.1 mGy. DLP: 236 mGy-cm. mGy. LIMITATIONS: None. FINDINGS: VISUALIZED PELVIC BONES: No acute fracture. No worrisome bone lesions. RIGHT HIP AND FEMUR: No acute fracture or dislocation. Marked degenerative changes in the hip with j oint space loss, sclerosis, subchondral cysts, and osteophytes. SOFT TISSUES: No significant findings. OTHER: No other significant finding. IMPRESSION: MARKED DEGENERATIVE CHANGES IN THE RIGHT HIP. NO ACUTE FINDINGS IN THE RIGHT HIP, ADJAC ENT RIGHT HEMIPELVIS, OR RIGHT FEMUR. TECHNICAL DOCUMENTATION: JOB ID: [id number] Quality ID # [id number]: Final reports with documentation of one or more dose reduction techniques (e.g., Au tomated exposure control, adjustment of the mA and/or kV according to patient size, use of iterative reconstruction technique) 2010 [employer]- All Rights Reserved Reading location - IP/workstation name: [email or web address]
[2017-10-20] MEDS ORDERED: PYRIDOSTIGMINE BROMIDE 60 MG TABLET ONE (01:45)
[2017-10-20] MEDS: PYRIDOSTIGMINE BROMIDE 60 MG TABLET PO SCH ×5 (01:55→23:45)
[2017-10-20 04:39] LABS: ABSOLUTE BASOPHILS # (AUTO) 0.1 10^3/uL (0.0-0.2); ABSOLUTE EOSINOPHILS # (AUTO) 0.1 10^3/uL (0.0-0.6); ABSOLUTE LYMPHOCYTES (AUTO) 1.5 10^3/uL (0.5-4.7); ABSOLUTE MONOCYTES (AUTO) 0.6 10^3/uL (0.1-1.4); ABSOLUTE NEUT (AUTO) 4.3 10^3/uL (1.7-8.2); BASOPHILS % (AUTO) 1.1 % (0-2); EOSINOPHILS % (AUTO) 1.8 % (0-6); HEMATOCRIT 37.5 % (36.0-47.0); HEMOGLOBIN 12.6 g/dL (12.0-15.5); LYMPHOCYTES % (AUTO) 23.2 % (13-45); MEAN CORPUSCULAR HEMOGLOBIN 29.8 pg (27.0-33.4); MEAN CORPUSCULAR HGB CONC 33.5 g/dL (32.0-36.0); MEAN CORPUSCULAR VOLUME 89 fl (80-97); MONOCYTES % (AUTO) 9.4 % (3-13); PLATELET COUNT 241 10^3/uL (150-450); RED BLOOD COUNT 4.22 10^6/uL (3.72-5.28); RED CELL DISTRIBUTION WIDTH 13.1 % (11.5-14.0); SEGMENTED NEUTROPHILS % (AUTO) 64.5 % (42-78); TOTAL CELLS COUNTED % (AUTO) 100 %; WHITE BLOOD COUNT 6.7 10^3/uL (4.0-10.5)
[2017-10-20 05:27] LABS: ALANINE AMINOTRANSFERASE 20 U/L (9-52); ALBUMIN 3.1 g/dL (3.5-5.0); ALKALINE PHOSPHATASE 63 U/L (38-126); ASPARTATE AMINO TRANSFERASE 17 U/L (14-36); BILIRUBIN,DIRECT 0.2 mg/dL (0.0-0.4); BILIRUBIN,TOTAL 0.7 mg/dL (0.2-1.3); BLOOD UREA NITROGEN 14 mg/dL (7-20); CALCIUM 9.5 mg/dL (8.4-10.2); GLUCOSE 80 mg/dL (75-110); POTASSIUM 4.6 mmol/L (3.6-5.0); TOTAL PROTEIN 5.9 g/dL (6.3-8.2)
[2017-10-20 05:32] LABS: CARBON DIOXIDE 30 mmol/L (22-30); CHLORIDE 113 mmol/L (98-107); SODIUM 142.1 mmol/L (137-145)
[2017-10-20 05:47] LABS: ANION GAP -1 (5-19)
[2017-10-20] MEDS: RINGERS SOLUTION,LACTATED 1,000 ML IV PRN (06:33)
[2017-10-20] MEDS: ENOXAPARIN SODIUM INJ 30 MG/0.3 ML DISP.SYRIN SUBCUT SCH (09:37)
[2017-10-20] MEDS: AMLODIPINE BESYLATE 5 MG TABLET PO SCH (09:37)
--- NOTE | 2017-10-20 12:13 | PDOC PROGRESS REPORT ---
Subjective Progress Note for:: 10/20/17 Subjective:: This is a 67-year-old female patient of mine admitted by the hospitalist service yesterday because of the right hip pain and weakness She did have a history of myasthenia gravis and supposed to see a neuro- toy maker in [place] but still unable to see Due to the transportation issues Patient also seen by the neurologistAs outpatients regularly Patient's initial complaint with the right hip pain unable to walk patient have a CT of the right hip was done was negative for any fracture Patient's denied any chest pain denied any shortness of the breath Denied any abdominal pain Scheduled to see a physical therapy today Reason For Visit: AMBULATORY DYSFUNCTION, RIGHT HIP PAIN Physical Exam Vital Signs: Temp Pulse Resp BP Pulse Ox 97.7 F 67 18 140/53 H 96 10/20/17 10:46 10/20/17 10:46 10/20/17 10:46 10/20/17 10:46 10/20/17 10:46 Intake & Output 10/19/17 10/20/17 10/21/17 06:59 06:59 06:59 Intake Total 1198 375 Output Total 300 Balance 1198 75 Weight 74.2 kg General appearance: PRESENT: no acute distress, well-developed, well-nourished Head exam: PRESENT: atraumatic, normocephalic Eye exam: PRESENT: conjunctiva pink, EOMI, PERRLA. ABSENT: scleral icterus Ear exam: PRESENT: normal external ear exam Mouth exam: PRESENT: moist, tongue midline Neck exam: PRESENT: full ROM. ABSENT: carotid bruit, JVD, lymphadenopathy, thyromegaly Respiratory exam: PRESENT: clear to auscultation [place] Cardiovascular exam: PRESENT: RRR. ABSENT: diastolic murmur, rubs, systolic murmur Pulses: PRESENT: normal dorsalis pedis pul, +2 pedal pulses bilateral Vascular exam: PRESENT: normal capillary refill GI/Abdominal exam: PRESENT: normal bowel sounds, soft. ABSENT: distended, guarding, mass, organolmegaly, rebound, tenderness Rectal exam: PRESENT: deferred Extremities exam: ABSENT: pedal edema Neurological exam: PRESENT: alert, awake, oriented to person, oriented to place , oriented to time, oriented to situation, CN II-XII grossly intact. ABSENT: motor sensory deficit Psychiatric exam: PRESENT: appropriate affect, normal mood. ABSENT: homicidal ideation, suicidal ideation Skin exam: PRESENT: dry, intact, warm. ABSENT: cyanosis, rash Results Laboratory Results: 10/20/17 03:58 10/20/17 03:58 10/20/17 10/20/17 03:58 03:58 WBC 6.7 RBC 4.22 Hgb 12.6 Hct 37.5 MCV 89 MCH 29.8 MCHC 33.5 RDW 13.1 Plt Count 241 Seg Neutrophils % 64.5 Lymphocytes % 23.2 Monocytes % 9.4 Eosinophils % 1.8 Basophils % 1.1 Absolute Neutrophils 4.3 Absolute Lymphocytes 1.5 Absolute Monocytes 0.6 Absolute Eosinophils 0.1 Absolute Basophils 0.1 Sodium 142.1 Potassium 4.6 Chloride 113 H Carbon Dioxide 30 Anion Gap -1 L BUN 14 Creatinine 0.85 Est GFR ( Amer) > 60 Est GFR (Non-Af Amer) > 60 Glucose 80 Calcium 9.5 Magnesium 2.1 Total Bilirubin 0.7 AST 17 ALT 20 Alkaline Phosphatase 63 Total Protein 5.9 L Albumin 3.1 L Impressions: Lower Extremity CT 10/19/17 00:00 IMPRESSION: MARKED DEGENERATIVE CHANGES IN THE RIGHT HIP. NO ACUTE FINDINGS IN THE RIGHT HIP, ADJACENT RIGHT HEMIPELVIS, OR RIGHT FEMUR. Chest X-Ray 10/19/17 07:50 IMPRESSION: NO ACUTE DISEASE. Hip/Pelvis X-Ray 10/19/17 07:50 IMPRESSION: Severe degenerative arthritis of both hips. Marked degenerative arthritis of the SI joints. Assessment & Plan - Diagnosis (1) Myasthenia gravis Is this a current diagnosis for this admission?: Yes Plan: Continues to current medication (2) Right leg pain Is this a current diagnosis for this admission?: Yes Plan: With ongoing's marked degenerative arthritis with consult the orthopedic further evaluations and continues to physical therapy evaluations (3) Weakness Is this a current diagnosis for this admission?: Yes Plan: At the physical therapy evaluations - Time Time Spent with patient: 15-24 minutes Medications reviewed and adjusted accordingly: Yes Anticipated discharge: Other Within: Other - Inpatient Certification Medical Necessity: Need Close Monitoring Due to Risk of Patient Decompensation Post Hospital Care: D/C [employer] Documentation - Plan Summary Plan Summary: See other MD orders
[2017-10-20] MEDS ORDERED: BUPIVACAINE HCL 0.5 % INJ/PF 30 ML SDV INJ PRN (14:49)
[2017-10-20] MEDS ORDERED: BETAMET ACET/BETAMET NA INJ 6 MG/1 ML INJ PRN (14:50)
[2017-10-21 04:53] VITALS: BP 155/67
[2017-10-21 05:04] LABS: ABSOLUTE BASOPHILS # (AUTO) 0.1 10^3/uL (0.0-0.2); ABSOLUTE EOSINOPHILS # (AUTO) 0.1 10^3/uL (0.0-0.6); ABSOLUTE LYMPHOCYTES (AUTO) 1.7 10^3/uL (0.5-4.7); ABSOLUTE MONOCYTES (AUTO) 0.5 10^3/uL (0.1-1.4); ABSOLUTE NEUT (AUTO) 3.3 10^3/uL (1.7-8.2); BASOPHILS % (AUTO) 1.4 % (0-2); EOSINOPHILS % (AUTO) 2.3 % (0-6); HEMATOCRIT 36.8 % (36.0-47.0); HEMOGLOBIN 12.3 g/dL (12.0-15.5); LYMPHOCYTES % (AUTO) 29.7 % (13-45); MEAN CORPUSCULAR HGB CONC 33.6 g/dL (32.0-36.0); MEAN CORPUSCULAR VOLUME 89 fl (80-97); MONOCYTES % (AUTO) 9.2 % (3-13); PLATELET COUNT 251 10^3/uL (150-450); RED BLOOD COUNT 4.11 10^6/uL (3.72-5.28); SEGMENTED NEUTROPHILS % (AUTO) 57.4 % (42-78); TOTAL CELLS COUNTED % (AUTO) 100 %; WHITE BLOOD COUNT 5.7 10^3/uL (4.0-10.5)
[2017-10-21 05:30] LABS: BLOOD UREA NITROGEN 7 mg/dL (7-20); CALCIUM 9.7 mg/dL (8.4-10.2); GLUCOSE 80 mg/dL (75-110)
[2017-10-21 06:02] LABS: CARBON DIOXIDE 29 mmol/L (22-30); CHLORIDE 114 mmol/L (98-107); POTASSIUM 4.1 mmol/L (3.6-5.0); SODIUM 140.5 mmol/L (137-145)
[2017-10-21 06:06] LABS: ANION GAP -3 (5-19)
[2017-10-21] MEDS: PYRIDOSTIGMINE BROMIDE 60 MG TABLET PO SCH ×2 (07:32→13:32)
--- NOTE | 2017-10-21 08:57 | PDOC CONSULTATION ---
History of Present Illness Admission Date/PCP: 10/19/17 10:45 JJ HUGHES MD Patient complains of: Right leg pain History of Present Illness: JULIANN OROZCO is a 67 year old female who presented on 10/19/17 with pain in her right lower extremity. Patient states over the weekend she sustained a fall onto her right buttocks. Since then she has had difficulty ambulating. Typically ambulates with a rolling walker. She has undergone physical therapy during hospital stay but still requires maximal to moderate assistance. Denies numbness or tingling. Has history of myasthenia gravis. Pain 10/10 with motion. Denies numbness. Past Medical History Cardiac Medical History: Reports: Hypertension Neurological Medical History: Reports: Other - Myasthenia gravis Musculoskeltal Medical History: Reports: Arthritis - osteoarthritis knees bilaterally Social History Smoking Status: Unknown if Ever Smoked Frequency of Alcohol Use: None Hx Recreational Drug Use: No Drugs: None Hx Prescription Drug Abuse: No Family History Family History: None Parental Family History Reviewed: No Children Family History Reviewed: No Sibling(s) Family History Reviewed.: No Medication/Allergy Home Medications: Amlodipine Besylate [Norvasc 5 mg Tablet] 5 mg PO DAILY 12/23/13 Pyridostigmine [place] [Mestinon 60 mg Tablet] 60 mg PO Q6 12/23/13 Ibuprofen 800 mg PO PCSUPPER PRN #30 tablet 10/21/17 Allergies/Adverse Reactions: bee pollen [Bee Pollen] Allergy (Verified 08/22/17 07:52) Review of Systems Constitutional: ABSENT: chills, fever(s), headache(s), weight gain, weight loss Eyes: ABSENT: visual disturbances Ears: ABSENT: hearing changes Cardiovascular: ABSENT: chest pain, dyspnea on exertion, edema, orthropnea, palpitations Respiratory: ABSENT: cough, hemoptysis Gastrointestinal: ABSENT: abdominal pain, constipation, diarrhea, hematemesis, hematochezia, nausea, vomiting Genitourinary: ABSENT: dysuria, hematuria Integumentary: ABSENT: rash, wounds Neurological: ABSENT: abnormal gait, abnormal speech, confusion, dizziness, focal weakness, syncope Psychiatric: ABSENT: anxiety, depression, homidical ideation, suicidal ideation Endocrine: ABSENT: cold intolerance, heat intolerance, menstrual abnormalities, polydipsia, polyuria Hematologic/Lymphatic: ABSENT: easy bleeding, easy bruising, lymphadenopathy Physical Exam Vital Signs: Temp Pulse Resp BP Pulse Ox 97 F L 71 20 155/67 H 97 10/21/17 04:51 10/21/17 04:51 10/21/17 04:51 10/21/17 04:51 10/21/17 04:51 Intake & Output 10/20/17 10/21/17 10/22/17 06:59 06:59 06:59 Intake Total 1198 902 Output Total 1350 Balance 1198 -448 Weight 74.2 kg 74.2 kg General appearance: PRESENT: no acute distress, cooperative, well-developed, well-nourished Head exam: PRESENT: atraumatic, normocephalic Eye exam: PRESENT: EOMI, PERRLA, other - Left-sided ptosis. ABSENT: scleral icterus Ear exam: PRESENT: normal external ear exam Mouth exam: PRESENT: moist, tongue midline Teeth exam: PRESENT: poor dentation Neck exam: PRESENT: full ROM. ABSENT: carotid bruit, JVD, lymphadenopathy, thyromegaly Respiratory exam: PRESENT: unlabored Cardiovascular exam: PRESENT: RRR. ABSENT: diastolic murmur, rubs, systolic murmur Pulses: PRESENT: normal dorsalis pedis pul, +2 pedal pulses bilateral Vascular exam: PRESENT: normal capillary refill GI/Abdominal exam: PRESENT: normal bowel sounds, soft. ABSENT: distended, guarding, mass, organolmegaly, rebound, tenderness Rectal exam: PRESENT: deferred Musculoskeletal exam: PRESENT: other - Bilateral lower extremities: Limited range of motion with crepitus. Significant pain with range of motion of the right lower extremity. Patient lacks straight leg raise. Intact plantar flexion/dorsiflexion. No significant thigh swelling appreciated. No calf tenderness. Neurological exam: PRESENT: alert, awake, oriented to person, oriented to place , oriented to time, oriented to situation, CN II-XII grossly intact. ABSENT: motor sensory deficit Psychiatric exam: PRESENT: appropriate affect, normal mood. ABSENT: homicidal ideation, suicidal ideation Skin exam: PRESENT: dry, intact, warm. ABSENT: cyanosis, rash Results Laboratory Results: 10/21/17 04:19 10/21/17 04:19 10/21/17 10/21/17 04:19 04:19 WBC 5.7 RBC 4.11 Hgb 12.3 Hct 36.8 MCV 89 MCH 30.0 MCHC 33.6 RDW 13.0 Plt Count 251 Seg Neutrophils % 57.4 Lymphocytes % 29.7 Monocytes % 9.2 Eosinophils % 2.3 Basophils % 1.4 Absolute Neutrophils 3.3 Absolute Lymphocytes 1.7 Absolute Monocytes 0.5 Absolute Eosinophils 0.1 Absolute Basophils 0.1 Sodium 140.5 Potassium 4.1 Chloride 114 H Carbon Dioxide 29 Anion Gap -3 L BUN 7 Creatinine 0.68 Est GFR ( Amer) > 60 Est GFR (Non-Af Amer) > 60 Glucose 80 Calcium 9.7 Impressions: Lower Extremity CT 10/19/17 00:00 IMPRESSION: MARKED DEGENERATIVE CHANGES IN THE RIGHT HIP. NO ACUTE FINDINGS IN THE RIGHT HIP, ADJACENT RIGHT HEMIPELVIS, OR RIGHT FEMUR. Chest X-Ray 10/19/17 07:50 IMPRESSION: NO ACUTE DISEASE. Hip/Pelvis X-Ray 10/19/17 07:50 IMPRESSION: Severe degenerative arthritis of both hips. Marked degenerative arthritis of the SI joints. Status: Image reviewed by me - I have reviewed patient's radiographs and CT scan which demonstrate end-stage degenerative changes of the femoral acetabular articulation along with degenerative changes of the SI joint. Assessment & Plan - Diagnosis (1) Unilateral primary osteoarthritis, right hip Is this a current diagnosis for this admission?: Yes (2) SI joint arthritis Is this a current diagnosis for this admission?: Yes Plan: Patient has evidence of advanced degenerative changes of her hips bilaterally and SI joint involvement which may indicate possible underlying inflammatory arthropathy. I do feel her arthritic changes are likely contributing to her symptoms. There is no evidence of acute fracture on CT scan on radiographs. At this point would recommend fluoroscopic right hip injection. Patient may then follow-up with Dr. Matos as an outpatient.
[2017-10-21] MEDS: ENOXAPARIN SODIUM INJ 30 MG/0.3 ML DISP.SYRIN SUBCUT SCH (09:25)
[2017-10-21] MEDS: AMLODIPINE BESYLATE 5 MG TABLET PO SCH (09:26)
[2017-10-21] MEDS ORDERED: LIDOCAINE 1% INJ-PF (10 MG/ML) 30 ML SDV ONE (09:42)
[2017-10-21] MEDS ORDERED: BUPIVACAINE HCL 0.5 % INJ/PF 30 ML SDV ONE (09:42)
--- NOTE | 2017-10-21 12:56 | PDOC DISCHARGE SUMMARY ---
General - Admit/Disc Date/PCP Admission Date/Primary Care Provider: 10/19/17 10:45 JJ HUGHES MD Discharge Date: 10/21/17 - Discharge Diagnosis (1) Myasthenia gravis Is this a current diagnosis for this admission?: Yes Summary: Currently all stableContinues to follow outpatients neuro-ophthalmologistPatient 's missed several appointments but he noncompliance (2) Right leg pain Is this a current diagnosis for this admission?: Yes Summary: Patient seen by the orthopedic surgery and suggests that steroid injections patients refused follow outpatient (3) Weakness Is this a current diagnosis for this admission?: Yes Summary: We arrange for home health and physical therapy (4) Hypertension Is this a current diagnosis for this admission?: Yes Summary: Currently stable with the continuous medications (5) Unilateral primary osteoarthritis, right hip Is this a current diagnosis for this admission?: Yes Summary: Follow-up outpatients orthopedic surgery - Additional Information Discharge Diet: Regular Prescriptions: Ibuprofen 800 mg PO PCSUPPER PRN #30 tablet PRN Reason: Home Medications: Amlodipine Besylate [Norvasc 5 mg Tablet] 5 mg PO DAILY 12/23/13 Pyridostigmine [place] [Mestinon 60 mg Tablet] 60 mg PO Q6 12/23/13 Ibuprofen 800 mg PO PCSUPPER PRN #30 tablet 10/21/17 History of Present Illness History of Present Illness: JULIANN OROZCO is a 67 year old female Is a 67-year-old female admitted because of the right hip pain and generalized weakness by the hospitalist service and I took over the patient Hospital Course Hospital Course: This 67-year-old female with a significant history of the myasthenia gravis and hypertension's very noncompliance with the follow-up came to the because of the complaint of right hip pain and unable to walk patient initial x-ray was negative have a CT of the right hip was negative for any acute fracture Patient seen by the orthopedic surgery and suggest the fluoroscopic injections but patients refused to do that and patient wants to go home because of the upcoming karley Patient otherwise doing well patient's denied any chest pain denied any shortness of the breath patients walk with the physical therapy Patient's discharge home with a stable condition and follow-up outpatient Physical Exam Vital Signs: Temp Pulse Resp BP Pulse Ox 97 F L 71 20 155/67 H 97 10/21/17 04:51 10/21/17 04:51 10/21/17 04:51 10/21/17 04:51 10/21/17 04:51 Intake & Output 10/20/17 10/21/17 10/22/17 06:59 06:59 06:59 Intake Total 1198 902 Output Total 1350 Balance 1198 -448 Weight 74.2 kg 74.2 kg General appearance: PRESENT: no acute distress, well-developed, well-nourished Head exam: PRESENT: atraumatic, normocephalic Eye exam: PRESENT: conjunctiva pink, EOMI, PERRLA. ABSENT: scleral icterus Ear exam: PRESENT: normal external ear exam Mouth exam: PRESENT: moist, tongue midline Neck exam: PRESENT: full ROM. ABSENT: carotid bruit, JVD, lymphadenopathy, thyromegaly Respiratory exam: PRESENT: clear to auscultation lucy Cardiovascular exam: PRESENT: RRR. ABSENT: diastolic murmur, rubs, systolic murmur Pulses: PRESENT: normal dorsalis pedis pul, +2 pedal pulses bilateral Vascular exam: PRESENT: normal capillary refill GI/Abdominal exam: PRESENT: normal bowel sounds, soft. ABSENT: distended, guarding, mass, organolmegaly, rebound, tenderness Rectal exam: PRESENT: deferred Extremities exam: ABSENT: pedal edema Musculoskeletal exam: PRESENT: ambulatory Neurological exam: PRESENT: alert, awake, oriented to person, oriented to place , oriented to time, oriented to situation, CN II-XII grossly intact. ABSENT: motor sensory deficit Psychiatric exam: PRESENT: appropriate affect, normal mood. ABSENT: homicidal ideation, suicidal ideation Skin exam: PRESENT: dry, intact, warm. ABSENT: cyanosis, rash Results Laboratory Results: 10/21/17 04:19 10/21/17 04:19 10/21/17 10/21/17 04:19 04:19 WBC 5.7 RBC 4.11 Hgb 12.3 Hct 36.8 MCV 89 MCH 30.0 MCHC 33.6 RDW 13.0 Plt Count 251 Seg Neutrophils % 57.4 Lymphocytes % 29.7 Monocytes % 9.2 Eosinophils % 2.3 Basophils % 1.4 Absolute Neutrophils 3.3 Absolute Lymphocytes 1.7 Absolute Monocytes 0.5 Absolute Eosinophils 0.1 Absolute Basophils 0.1 Sodium 140.5 Potassium 4.1 Chloride 114 H Carbon Dioxide 29 Anion Gap -3 L BUN 7 Creatinine 0.68 Est GFR ( Amer) > 60 Est GFR (Non-Af Amer) > 60 Glucose 80 Calcium 9.7 Impressions: Lower Extremity CT 10/19/17 00:00 IMPRESSION: MARKED DEGENERATIVE CHANGES IN THE RIGHT HIP. NO ACUTE FINDINGS IN THE RIGHT HIP, ADJACENT RIGHT HEMIPELVIS, OR RIGHT FEMUR. Chest X-Ray 10/19/17 07:50 IMPRESSION: NO ACUTE DISEASE. Hip/Pelvis X-Ray 10/19/17 07:50 IMPRESSION: Severe degenerative arthritis of both hips. Marked degenerative arthritis of the SI joints. Qualifiers - * PATIENT BEING DISCHARGED WITH ANY OF THE FOLLOWING DIAGNOSIS: No VTE patient discharged on overlapping Therapy?: Yes Plan Time Spent: Greater than 30 Minutes - Continues to current medication
== END 2017-10-21 17:10 | disposition home health service (06) ==
LOC: ER 07:35 → INTOOBSV 10:45 → EH 10:45 → 3N 15:27
PROVIDERS: ADMIT Internal Medicine; ATTEND Family Medicine
DX: G70.00 Myasthenia gravis without (acute) exacerbation (principal); R53.1 Weakness; M79.604 Pain in right leg; W18.39XA Other fall on same level, initial encounter; I10 Essential (primary) hypertension; M16.11 Unilateral primary osteoarthritis, right hip; R26.89 Other abnormalities of gait and mobility; R29.6 Repeated falls; M17.0 Bilateral primary osteoarthritis of knee; Z91.19 Patient's noncompliance with other medical treatment and regimen; Z79.899 Other long term (current) drug therapy
CPT/HCPCS: 93005; 99284; 96374; 36415 ×3; 83735; 85025 ×3; 80048 ×2; 80053; 81001; 84484; 71045; 73502; 73700; 93010; 97116; 97163; 97167; A9270 ×6; J3490 ×2; J2270; J0702; J1650 ×3; J7120 ×2; G8978; G8979; G8987; G8988; G8989

== ENCOUNTER 2018-02-16 16:50 | Inpatient (IN) | payer MEDICARE, BC ==
--- NOTE | 2018-02-16 18:22 | ER Document Report ---
ED Medical Screen (RME) - General Chief Complaint: General Weakness Stated Complaint: WEAKNESS, POSSIBLE ANXIETY Time Seen by Provider: 02/16/18 18:12 Notes: RAPID MEDICAL EVALUATION DISCLOSURE I have seen this patient as part of a Rapid Medical Evaluation and, if applicable, placed any initially appropriate orders. The patient will be seen and fully evaluated, including a full history and physical exam, by a provider (in Main ED or Fast Track) when a room becomes available. 67-year-old female PMH myasthenia gravis chronic right hip pain here with complaints of generalized weakness, shortness of breath, and poor appetite that has been progressively worsening over the past 6-12 months. Today she felt more weak than usual and family states that she was able to get up to the second step but then really slowed down and had difficulty going up the rest of the steps due to her generalized weakness. The patient states that she thinks that she had an anxiety attack. She also wonders if her myasthenia gravis is getting worse. She did not have any chest pain tightness discomfort. History-taking is limited due to the patient being hard of hearing. EXAM CTAB RRR TRAVEL OUTSIDE OF THE [place] IN LAST 30 DAYS: No - Related Data Allergies/Adverse Reactions: egg Allergy (Unknown, Verified 10/21/17 10:41) bee pollen [Bee Pollen] Allergy (Verified 08/22/17 07:52) Penicillins Allergy (Verified 10/21/17 10:41) Past Medical History - Past Medical History Cardiac Medical History: Reports: Hx Hypertension Renal/ Medical History: Denies: Hx Peritoneal Dialysis Musculoskeltal Medical History: Reports Hx Arthritis - osteoarthritis knees bilaterally Physical Exam - Vital signs Vitals: Temp Pulse Resp BP Pulse Ox 98.0 F 96 20 178/69 H 98 02/16/18 17:06 02/16/18 17:06 02/16/18 17:06 02/16/18 17:06 02/16/18 17:06 Course - Vital Signs Vital signs: Temp Pulse Resp BP Pulse Ox 98.0 F 96 20 178/69 H 98 02/16/18 17:06 02/16/18 17:06 02/16/18 17:06 02/16/18 17:06 02/16/18 17:06 Doctor's Discharge - Discharge Referrals: JJ HUGHES MD [Primary Care Provider] - Follow up as needed
[2018-02-16 18:51] LABS: ABSOLUTE BASOPHILS # (AUTO) 0.1 10^3/uL (0.0-0.2); ABSOLUTE LYMPHOCYTES (AUTO) 0.9 10^3/uL (0.5-4.7); ABSOLUTE MONOCYTES (AUTO) 0.4 10^3/uL (0.1-1.4); ABSOLUTE NEUT (AUTO) 7.1 10^3/uL (1.7-8.2); BASOPHILS % (AUTO) 0.9 % (0-2); EOSINOPHILS % (AUTO) 0.3 % (0-6); HEMATOCRIT 41.7 % (36.0-47.0); HEMOGLOBIN 14.1 g/dL (12.0-15.5); LYMPHOCYTES % (AUTO) 10.2 % (13-45); MEAN CORPUSCULAR HEMOGLOBIN 30.3 pg (27.0-33.4); MEAN CORPUSCULAR HGB CONC 33.9 g/dL (32.0-36.0); MEAN CORPUSCULAR VOLUME 89 fl (80-97); MONOCYTES % (AUTO) 4.8 % (3-13); PLATELET COUNT 304 10^3/uL (150-450); RED BLOOD COUNT 4.67 10^6/uL (3.72-5.28); SEGMENTED NEUTROPHILS % (AUTO) 83.8 % (42-78); TOTAL CELLS COUNTED % (AUTO) 100 %; WHITE BLOOD COUNT 8.5 10^3/uL (4.0-10.5)
[2018-02-16 19:07] LABS: ALANINE AMINOTRANSFERASE 8 U/L (9-52); ALBUMIN 4.3 g/dL (3.5-5.0); ALKALINE PHOSPHATASE 98 U/L (38-126); ASPARTATE AMINO TRANSFERASE 37 U/L (14-36); BILIRUBIN,DIRECT 0.3 mg/dL (0.0-0.4); BILIRUBIN,TOTAL 0.9 mg/dL (0.2-1.3); BLOOD UREA NITROGEN 7 mg/dL (7-20); CALCIUM 10.5 mg/dL (8.4-10.2); GLUCOSE 101 mg/dL (75-110); POTASSIUM 4.1 mmol/L (3.6-5.0); TOTAL PROTEIN 7.9 g/dL (6.3-8.2)
[2018-02-16 19:12] LABS: CARBON DIOXIDE 30 mmol/L (22-30); CHLORIDE 112 mmol/L (98-107); SODIUM 142.6 mmol/L (137-145)
--- NOTE | 2018-02-16 19:12 | RADIOLOGY REPORT (SQ) ---
EXAM DESCRIPTION: CHEST 2 VIEWS COMPLETED DATE/TIME: 02/16/2018 6:48 pm REASON FOR STUDY: sob COMPARISON: None. EXAM PARAMETERS: NUMBER OF VIEWS: two views TECHNIQUE: Digital Frontal and Lateral radiographic views of the chest acquired. RADIATION DOSE: NA LIMITATIONS: none FINDINGS: LUNGS AND PLEURA: No opacities, masses or pneumothorax. No pleural effusion. MEDIASTINUM AND HILAR STRUCTURES: No masses or contour abnormalities. HEART AND VASCULAR STRUCTURES: Heart normal size. No evidence for failure. BONES: No acute findings. HARDWARE: None in the chest. OTHER: No other significant finding. IMPRESSION: NO ACUTE RADIOGRAPHIC FINDING IN THE CHEST. TECHNICAL DOCUMENTATION: JOB ID: [id number] [employer]- All Rights Reserved Reading location - IP/workstation name: [email or web address]
[2018-02-16 19:15] LABS: ANION GAP 1 (5-19)
[2018-02-16] MEDS ORDERED: ASPIRIN 81 MG TABLET, CHEWABLE PO ONE (20:33)
--- NOTE | 2018-02-16 20:35 | EKG REPORT ---
SEVERITY:- BORDERLINE ECG - SINUS RHYTHM BORDERLINE INFERIOR Q WAVES : Confirmed by: Dash Sheridan MD 16-Feb-2018 20:34:39
--- NOTE | 2018-02-16 20:47 | ER Document Report ---
ED General - General Chief Complaint: General Weakness Stated Complaint: WEAKNESS, POSSIBLE ANXIETY Time Seen by Provider: 02/16/18 18:12 Mode of Arrival: Ambulatory Information source: Patient, [facility] Records Notes: 67-year-old female with hypertension, myasthenia gravis, osteoarthritis presents via EMS with complaint of weakness. Patient states that she has been feeling weak for several days now. She states that when she got home from her primary care physician's office she was unable to climb up the stairs. Patient reports that she had to crawl into her house to get in. She denies any fever, chills, nausea, vomiting, chest pain, shortness of breath. Her only complaint is generalized weakness. TRAVEL OUTSIDE OF THE [place] IN LAST 30 DAYS: No - HPI Onset: Other Onset/Duration: Gradual, Persistent Quality of pain: No pain Associated symptoms: Weakness. denies: Chest pain, Diarrhea, Headache, Nausea, Vomiting, Shortness of breath Exacerbated by: Movement, Walking Relieved by: Denies Similar symptoms previously: Yes Recently seen / treated by doctor: Yes - Dr. Gongora this morning - Related Data Allergies/Adverse Reactions: egg Allergy (Unknown, Verified 10/21/17 10:41) bee pollen [Bee Pollen] Allergy (Verified 08/22/17 07:52) Penicillins Allergy (Verified 10/21/17 10:41) Past Medical History - General Information source: Patient - Social History Smoking Status: Never Smoker Chew tobacco use (# tins/day): No Frequency of alcohol use: None Drug Abuse: None Lives with: Family Family History: None Patient has suicidal ideation: No Patient has homicidal ideation: No - Past Medical History Cardiac Medical History: Reports: Hx Hypertension Renal/ Medical History: Denies: Hx Peritoneal Dialysis Musculoskeletal Medical History: Reports Hx Arthritis - osteoarthritis knees bilaterally Review of Systems - Review of Systems Notes: REVIEW OF SYSTEMS: CONSTITUTIONAL : Denies fever, chills, or sweats. Denies recent illness. Denies weight loss, recent hospitalizations. EENT: Denies visual changes, eye pain. Denies sore throat, oral lesions, dif ficulty swallowing. CARDIOVASCULAR: Denies chest pain. Denies palpitations. Denies lower extremity edema. RESPIRATORY: Denies cough. Denies shortness of breath, wheezing. GASTROINTESTINAL: Denies abdominal pain or distention. Denies nausea, vomiting, or diarrhea. Denies blood in vomitus, stools, or per rectum. Denies black, tarry stools. Denies constipation. GENITOURINARY: Denies difficulty urinating, painful urination, frequency, blood in urine, or vaginal discharge. MUSCULOSKELETAL: Denies back or neck pain or stiffness. Denies joint pain or swelling. SKIN: Denies rash, lesions or sores. HEMATOLOGIC : Denies easy bruising or bleeding. LYMPHATIC: Denies swollen glands. NEUROLOGICAL: Denies confusion or altered mental status. Denies loss of consciousness. Denies dizziness or lightheadedness. Denies headache. Denies paralysis. Denies problems difficulty with ambulation, slurred speech. Denies sensory loss, numbness, or tingling. Denies seizures. PSYCHIATRIC: Denies anxiety or stress. Denies depression, suicidal ideation, or homicidal ideation. Denies visual or auditory hallucinations. PHYSICAL EXAMINATION: GENERAL: Ill-appearing, not toxic. HEAD: Atraumatic, normocephalic. EYES: Pupils equal round and reactive to light, extraocular movements intact, conjunctiva are normal. ENT: Nares patent, oropharynx clear without exudates. Moist mucous membranes. NECK: Normal range of motion, supple without lymphadenopathy LUNGS: Breath sounds clear to auscultation bilaterally and equal. No wheezes rales or rhonchi. HEART: Regular rate and rhythm without murmurs ABDOMEN: Soft, nontender, nondistended abdomen. No guarding, no rebound. No masses appreciated. Female : deferred Musculoskeletal: Normal range of motion, no pitting or edema. No cyanosis. NEUROLOGICAL: Cranial nerves grossly intact. Slowed speech normal sensory, motor exams PSYCH: Normal mood, normal affect. SKIN: Warm, Dry, normal turgor, no rashes or lesions noted. Physical Exam - Vital signs Vitals: Temp Pulse Resp BP Pulse Ox 98.0 F 96 20 178/69 H 98 02/16/18 17:06 02/16/18 17:06 02/16/18 17:06 02/16/18 17:06 02/16/18 17:06 Interpretation: Hypertensive Course - Re-evaluation Re-evalutation: 02/16/18 20:47 Laboratory 02/16/18 02/16/18 02/16/18 18:34 18:34 18:34 WBC 8.5 RBC 4.67 Hgb 14.1 Hct 41.7 MCV 89 MCH 30.3 MCHC 33.9 RDW 13.0 Plt Count 304 Seg Neutrophils % 83.8 H Lymphocytes % 10.2 L Monocytes % 4.8 Eosinophils % 0.3 Basophils % 0.9 Absolute Neutrophils 7.1 Absolute Lymphocytes 0.9 Absolute Monocytes 0.4 Absolute Eosinophils 0.0 Absolute Basophils 0.1 APTT Sodium 142.6 Potassium 4.1 Chloride 112 H Carbon Dioxide 30 Anion Gap 1 L BUN 7 Creatinine 0.65 Est GFR ( Amer) > 60 Est GFR (Non-Af Amer) > 60 Glucose 101 Calcium 10.5 H Magnesium 2.2 Total Bilirubin 0.9 Direct Bilirubin 0.3 Neonat Total Bilirubin Not Reportable Neonat Direct Bilirubin Not Reportable Neonat Indirect Bili Not Reportable AST 37 H ALT 8 L Alkaline Phosphatase 98 Troponin I 0.275 Total Protein 7.9 Albumin 4.3 02/16/18 20:02 WBC RBC Hgb Hct MCV MCH MCHC RDW Plt Count Seg Neutrophils % Lymphocytes % Monocytes % Eosinophils % Basophils % Absolute Neutrophils Absolute Lymphocytes Absolute Monocytes Absolute Eosinophils Absolute Basophils APTT 33.2 Sodium Potassium Chloride Carbon Dioxide Anion Gap BUN Creatinine Est GFR ( Amer) Est GFR (Non-Af Amer) Glucose Calcium Magnesium Total Bilirubin Direct Bilirubin Neonat Total Bilirubin Neonat Direct Bilirubin Neonat Indirect Bili AST ALT Alkaline Phosphatase Troponin I Total Protein Albumin Chest X-Ray 02/16/18 18:19 IMPRESSION: NO ACUTE RADIOGRAPHIC FINDING IN THE CHEST. Temp Pulse Resp BP Pulse Ox 98.0 F 96 20 178/69 H 98 02/16/18 17:06 02/16/18 17:06 02/16/18 17:06 02/16/18 17:06 02/16/18 17:06 67-year-old female with hypertension, myasthenia gravis, sent with complaint of weakness. Patient states that she was unable to climb up her stairs this morning after getting home from her primary care physician's office. She denies any headache, nausea, vomiting, dizziness, diaphoresis, chest pain, shortness of breath, abdominal pain. Vital signs reviewed and patient is afebrile, hypertensive but not hypoxic. She is in no acute distress. CBC is without leukocytosis or anemia. CMP is unremarkable. Patient's initial troponin was 0.231. Repeat troponin now 0.3. Patient was administered Lovenox. She has remained stable throughout her ED course and has not had any complaints of chest pain. Patient is meeting criteria for inpatient at our facility as she has no ongoing chest pain no ST elevations, no hyperacute T waves, no evidence of heart failure, no recent CVA and her creatinine is normal. 02/16/18 21:[address] patrice Gongora regarding the patient's elevated troponin. He requests that I call Dr. Ram who has told him in the past that he would like to be consulted on his patients. I did attempt to call him and left a message. I was not able to get in touch with Dr. Mendoza. 02/16/18 22:[address] Clayton who is on-call for cardiology today and got out the words I have a patient of Dr. Ram and he immediately snapped at me and stated that he does not cover Dr. Martínez patient's, sounds patients, he only covers his own patients in emergencies. I stated back to him that he is never very helpful and he is always very rude and I hung up the phone. I was able to finally get in touch with Dr. Ram who will not be able to see t he patient tomorrow but states he will be able to see her on Friday. He states he believes that he this patient can be managed in our hospital. He advises an increase of the patient's metoprolol from 12.5 mg twice daily to 25 mg twice daily and to add Lipitor 10 mg daily. Family is at the bedside and is agreeable with admission. Patient has been accepted by Dr. Gongora to the [facility]. - Vital Signs Vital signs: Temp Pulse Resp BP Pulse Ox 98.0 F 96 20 178/69 H 98 02/16/18 17:06 02/16/18 17:06 02/16/18 17:06 02/16/18 17:06 02/16/18 17:06 - Laboratory Result Diagrams: 02/16/18 18:34 02/16/18 18:34 Laboratory results interpreted by me: 02/16/18 02/16/18 18:34 18:34 Seg Neutrophils % 83.8 H Lymphocytes % 10.2 L Chloride 112 H Anion Gap 1 L Calcium 10.5 H AST 37 H ALT 8 L - Diagnostic Test Radiology reviewed: Image reviewed, Reports reviewed - EKG Interpretation by Me EKG shows normal: Sinus rhythm Rate: Normal Rhythm: NSR When compared to previous EKG there are: No significant change Critical Care Note - Critical Care Note Total time excluding time spent on procedures (mins): 40 - Minutes of critical care time spent in direct contact evaluating and reevaluating the patient, treating symptoms, reviewing labs and studies and speaking with family and consultants excluding any procedures Discharge - Discharge Clinical Impression: NSTEMI (non-ST elevated myocardial infarction), Myasthenia gravis, Weakness Hypertension Qualifiers: Hypertension type: unspecified Qualified Code(s): I10 - Essential (primary) hypertension Condition: Good Disposition: ADMITTED INPATIENT Admitting Provider: Gongora Unit Admitted: [facility]
[2018-02-16] MEDS ORDERED: ACETAMINOPHEN 325 MG TABLET PO PRN (21:57)
[2018-02-16] MEDS ORDERED: ENOXAPARIN SODIUM INJ 80 MG/0.8 ML DISP.SYRIN SUBCUT SCH (22:00)
[2018-02-16 22:34] LABS: APPEARANCE,URINE CLEAR; BILIRUBIN,URINE NEGATIVE (NEGATIVE); COLOR,URINE STRAW; GLUCOSE, URINE NEGATIVE (NEGATIVE); KETONES,URINE NEGATIVE (NEGATIVE); LEUKOCYTE ESTERASE,URINE NEGATIVE (NEGATIVE); NITRITE,URINE NEGATIVE (NEGATIVE); PROTEIN,URINE NEGATIVE (NEGATIVE); URINE SPECIFIC GRAVITY 1.005; UROBILINOGEN,URINE NEGATIVE mg/dL (<2.0)
[2018-02-16 23:18] LABS: CREATINE KINASE MB 2.09 ng/mL (<4.55)
[2018-02-16] MEDS: METOPROLOL TARTRATE 25 MG TABLET PO SCH (23:23)
[2018-02-16 23:26] LABS: TROPONIN I 0.358 ng/mL
[2018-02-16] MEDS: ATORVASTATIN CALCIUM 10 MG TABLET PO SCH (23:40)
[2018-02-17 04:55] LABS: ABSOLUTE BASOPHILS # (AUTO) 0.1 10^3/uL (0.0-0.2); ABSOLUTE LYMPHOCYTES (AUTO) 1.4 10^3/uL (0.5-4.7); ABSOLUTE MONOCYTES (AUTO) 0.4 10^3/uL (0.1-1.4); ABSOLUTE NEUT (AUTO) 3.7 10^3/uL (1.7-8.2); BASOPHILS % (AUTO) 2.2 % (0-2); EOSINOPHILS % (AUTO) 0.5 % (0-6); HEMATOCRIT 36.9 % (36.0-47.0); HEMOGLOBIN 12.7 g/dL (12.0-15.5); LYMPHOCYTES % (AUTO) 25.2 % (13-45); MEAN CORPUSCULAR HEMOGLOBIN 30.1 pg (27.0-33.4); MEAN CORPUSCULAR HGB CONC 34.3 g/dL (32.0-36.0); MEAN CORPUSCULAR VOLUME 88 fl (80-97); MONOCYTES % (AUTO) 7.6 % (3-13); PLATELET COUNT 261 10^3/uL (150-450); RED CELL DISTRIBUTION WIDTH 12.8 % (11.5-14.0); SEGMENTED NEUTROPHILS % (AUTO) 64.5 % (42-78); TOTAL CELLS COUNTED % (AUTO) 100 %; WHITE BLOOD COUNT 5.7 10^3/uL (4.0-10.5)
[2018-02-17 05:13] LABS: ALANINE AMINOTRANSFERASE 15 U/L (9-52); ALBUMIN 3.2 g/dL (3.5-5.0); ALKALINE PHOSPHATASE 75 U/L (38-126); ASPARTATE AMINO TRANSFERASE 18 U/L (14-36); BILIRUBIN,DIRECT 0.2 mg/dL (0.0-0.4); BILIRUBIN,TOTAL 0.8 mg/dL (0.2-1.3); BLOOD UREA NITROGEN 6 mg/dL (7-20); CALCIUM 9.8 mg/dL (8.4-10.2); CARBON DIOXIDE 28 mmol/L (22-30); CHLORIDE 116 mmol/L (98-107); CHOLESTEROL 153.31 mg/dL (0-200); CREATINE KINASE 122 U/L (30-135); GLUCOSE 80 mg/dL (75-110); SODIUM 143.3 mmol/L (137-145); TOTAL PROTEIN 5.9 g/dL (6.3-8.2); TRIGLYCERIDES 45 mg/dL (<150)
[2018-02-17 05:18] LABS: CREATINE KINASE MB 1.92 ng/mL (<4.55); TROPONIN I 0.298 ng/mL
[2018-02-17 05:29] LABS: DIRECT LDL 80 mg/dL (<100)
[2018-02-17] MEDS: LANSOPRAZOLE 15 MG TAB.RAP.DR PO SCH ×2 (05:58→18:26)
--- NOTE | 2018-02-17 07:12 | EKG REPORT ---
SEVERITY:- NORMAL ECG - SINUS RHYTHM : Confirmed by: Dash Sheridan MD 17-Feb-2018 07:12:00
[2018-02-17 07:26] LABS: ANION GAP -1 (5-19)
--- NOTE | 2018-02-17 09:19 | PDOC H&P ---
History of Present Illness Admission Date/PCP: 02/16/18 22:08 JJ HUGHES MD Patient complains of: Weakness History of Present Illness: JULIANN OROZCO is a 67 year old female This 67-year-old female with a significant history of the myasthenia gravis severe osteoarthritis hypertension's hyperlipidemia came to the office yesterday for just the wheelchair with prescriptions no complaints went to the home but feeling more weak unable to climb the stair and patient is brought to the emergency department where initial workup was all stable except patient's tropo jesus was elevated Patient's denied any chest pain patient is probably criteria for non-ST ND and patient decided to admit per discussed with the cardiology Dr. Ram When I saw the patient's denied any chest pain but patient is complaining of some short of breath when this incident happened Patient is currently denied any symptoms The patient has usual significant weakness in the lower extremity Patient has severe osteoarthritis in the bilateral hip currently see a Dr. 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 the myasthenia gravis was referred to the [facility] Past Medical History Cardiac Medical History: Reports: Hypertension Musculoskeltal Medical History: Reports: Arthritis - osteoarthritis knees bilaterally Social History Lives with: Family Smoking Status: Never Smoker Frequency of Alcohol Use: None Hx Recreational Drug Use: No Drugs: None Hx Prescription Drug Abuse: No - Advance Directive Resuscitation Status: Full Code Family History Family History: None, Reviewed & Not Pertinent Parental Family History Reviewed: Yes Children Family History Reviewed: Yes Sibling(s) Family History Reviewed.: Yes Medication/Allergy Allergies/Adverse Reactions: egg Allergy (Unknown, Verified 10/21/17 10:41) bee pollen [Bee Pollen] Allergy (Verified 08/22/17 07:52) Penicillins Allergy (Verified 10/21/17 10:41) Review of Systems Constitutional: PRESENT: weakness. ABSENT: chills, fever(s), headache(s), weight gain, weight loss Eyes: ABSENT: visual disturbances Ears: ABSENT: hearing changes Cardiovascular: ABSENT: chest pain, dyspnea on exertion, edema, orthropnea, palpitations Respiratory: ABSENT: cough, hemoptysis Gastrointestinal: ABSENT: abdominal pain, constipation, diarrhea, hematemesis, hematochezia, nausea, vomiting Genitourinary: ABSENT: dysuria, hematuria Musculoskeletal: ABSENT: joint swelling Integumentary: ABSENT: rash, wounds Neurological: ABSENT: abnormal gait, abnormal speech, confusion, dizziness, focal weakness, syncope Psychiatric: ABSENT: anxiety, depression, homidical ideation, suicidal ideation Endocrine: ABSENT: cold intolerance, heat intolerance, menstrual abnormalities, polydipsia, polyuria Hematologic/Lymphatic: ABSENT: easy bleeding, easy bruising, lymphadenopathy Physical Exam Vital Signs: Temp Pulse Resp BP Pulse Ox 97.6 F 77 20 143/60 H 100 02/17/18 03:45 02/17/18 07:00 02/17/18 03:45 02/17/18 03:45 02/17/18 03:45 Intake & Output 02/16/18 02/17/18 02/18/18 06:59 06:59 06:59 Weight 72.3 kg General appearance: PRESENT: no acute distress, well-developed, well-nourished Head exam: PRESENT: atraumatic, normocephalic Eye exam: PRESENT: conjunctiva pink, EOMI, PERRLA. ABSENT: scleral icterus Ear exam: PRESENT: normal external ear exam Mouth exam: PRESENT: moist, tongue midline Neck exam: PRESENT: full ROM. ABSENT: carotid bruit, JVD, lymphadenopathy, thyromegaly Respiratory exam: PRESENT: clear to auscultation lucy Cardiovascular exam: PRESENT: RRR. ABSENT: diastolic murmur, rubs, systolic murmur Pulses: PRESENT: normal dorsalis pedis pul, +2 pedal pulses bilateral Vascular exam: PRESENT: normal capillary refill GI/Abdominal exam: PRESENT: normal bowel sounds, soft. ABSENT: distended, guarding, mass, organolmegaly, rebound, tenderness Rectal exam: PRESENT: deferred Extremities exam: ABSENT: pedal edema Neurological exam: PRESENT: alert, awake, oriented to person, oriented to place, oriented to time, oriented to situation. ABSENT: motor sensory deficit Psychiatric exam: PRESENT: appropriate affect, normal mood. ABSENT: homicidal ideation, suicidal ideation Skin exam: PRESENT: dry, intact, warm. ABSENT: cyanosis, rash Results Laboratory Results: 02/17/18 04:43 02/17/18 04:43 02/16/18 02/16/18 02/16/18 18:34 18:34 21:10 WBC 8.5 RBC 4.67 Hgb 14.1 Hct 41.7 MCV 89 MCH 30.3 MCHC 33.9 RDW 13.0 Plt Count 304 Seg Neutrophils % 83.8 H Lymphocytes % 10.2 L Monocytes % 4.8 Eosinophils % 0.3 Basophils % 0.9 Absolute Neutrophils 7.1 Absolute Lymphocytes 0.9 Absolute Monocytes 0.4 Absolute Eosinophils 0.0 Absolute Basophils 0.1 Sodium 142.6 Potassium 4.1 Chloride 112 H Carbon Dioxide 30 Anion Gap 1 L BUN 7 Creatinine 0.65 Est GFR ( Amer) > 60 Est GFR (Non-Af Amer) > 60 Glucose 101 Calcium 10.5 H Magnesium 2.2 Total Bilirubin 0.9 AST 37 H ALT 8 L Alkaline Phosphatase 98 Total Protein 7.9 Albumin 4.3 Triglycerides Cholesterol LDL Cholesterol Direct VLDL Cholesterol HDL Cholesterol Urine Color STRAW Urine Appearance CLEAR Urine pH 7.0 Ur Specific [place] 1.005 Urine Protein NEGATIVE Urine Glucose (UA) NEGATIVE Urine Ketones NEGATIVE Urine Blood NEGATIVE Urine Nitrite NEGATIVE Ur Leukocyte Esterase NEGATIVE Urine WBC (Auto) 2 Urine RBC (Auto) 1 02/17/18 02/17/18 04:43 04:43 WBC 5.7 RBC 4.20 Hgb 12.7 Hct 36.9 MCV 88 MCH 30.1 MCHC 34.3 RDW 12.8 Plt Count 261 Seg Neutrophils % 64.5 Lymphocytes % 25.2 Monocytes % 7.6 Eosinophils % 0.5 Basophils % 2.2 H Absolute Neutrophils 3.7 Absolute Lymphocytes 1.4 Absolute Monocytes 0.4 Absolute Eosinophils 0.0 Absolute Basophils 0.1 Sodium 143.3 Potassium 4.0 Chloride 116 H Carbon Dioxide 28 Anion Gap -1 L BUN 6 L Creatinine 0.59 Est GFR ( Amer) > 60 Est GFR (Non-Af Amer) > 60 Glucose 80 Calcium 9.8 Magnesium 2.2 Total Bilirubin 0.8 AST 18 ALT 15 Alkaline Phosphatase 75 Total Protein 5.9 L Albumin 3.2 L Triglycerides 45 Cholesterol 153.31 LDL Cholesterol Direct 80 VLDL Cholesterol 9.0 L HDL Cholesterol 62 Urine Color Urine Appearance Urine pH Ur Specific [place] Urine Protein Urine Glucose (UA) Urine Ketones Urine Blood Urine Nitrite Ur Leukocyte Esterase Urine WBC (Auto) Urine RBC (Auto) 02/16/18 02/16/18 02/16/18 18:34 20:02 22:45 Creatine Kinase 122 CK-MB (CK-2) Troponin I 0.275 0.313 02/16/18 02/17/1802/17/19 22:45 04:43 04:43 Creatine Kinase 122 CK-MB (CK-2) 2.09 1.92 Troponin I 0.358 0.298 Impressions: Chest X-Ray 02/16/18 18:19 IMPRESSION: NO ACUTE RADIOGRAPHIC FINDING IN THE CHEST. Assessment & Plan - Diagnosis (1) NSTEMI (non-ST elevated myocardial infarction) Is this a current diagnosis for this admission?: Yes Plan: Start the patient on ND protocol Discussed with the cardiology Dr. Ram Continues to Lovenox aspirin beta rashaad and Lipitor (2) Hypertension Qualifiers: Hypertension type: unspecified Qualified Code(s): I10 - Essential (primary) hypertension Is this a current diagnosis for this admission?: Yes Plan: to current medications (3) Myasthenia gravis Is this a current diagnosis for this admission?: Yes (4) Weakness Is this a current diagnosis for this admission?: Yes Plan: Get the physical therapy evaluations (5) SI joint arthritis Is this a current diagnosis for this admission?: Yes Plan: We will get the CT of the LS spine because of the generalized weakness of the lower extremity also consult the orthopedic surgery for ongoing severe hip problems - Time Time Spent: 30 to 50 Minutes Medications reviewed and adjusted accordingly: Yes Anticipated discharge: Acute Rehab Within: Other - Inpatient Certification Based on my medical assessment, after consideration of the patient's comorbidities, presenting symptoms, or acuity I expect that the services needed warrant INPATIENT care.: Yes I certify that my determination is in accordance with my understanding of Medicare's requirements for reasonable and necessary INPATIENT services [42 CFR 412.3e].: Yes Medical Necessity: Need For Continuous Telemetry Monitoring Post Hospital Care: D/C Qa Auditor Documentation - Plan Summary Plan Summary: Will get the CT of the LS spine patient unable to get the IV contrast will get the VQ scan to rule out underlying any PE discussed with the field placement director continues to follow Discussed with the patient and the daughter regarding the patient's current conditions
[2018-02-17] MEDS: ASPIRIN 81 MG TABLET, CHEWABLE PO SCH (09:32)
[2018-02-17] MEDS: METOPROLOL TARTRATE 25 MG TABLET PO SCH ×2 (09:32→21:56)
[2018-02-17] MEDS ORDERED: METOPROLOL SUCCINATE 25 MG TAB.SR.24H PO SCH (10:00)
[2018-02-17] MEDS ORDERED: ENOXAPARIN SODIUM INJ 80 MG/0.8 ML DISP.SYRIN SUBCUT SCH (10:00)
[2018-02-17 11:40] LABS: CREATINE KINASE MB 1.67 ng/mL (<4.55)
[2018-02-17 11:49] LABS: TROPONIN I 0.215 ng/mL
--- NOTE | 2018-02-17 12:04 | PDOC CONSULTATION ---
Consultation Consult Date: 02/17/18 Consult reason:: Right hip pain and ambulatory dysfunction History of Present Illness Admission Date/PCP: 02/16/18 22:08 JJ HUGHES MD History of Present Illness: JULIANN OROZCO is a 67 year old female The patient is a 67-year-old black female with a past medical history notable for myasthenia gravis, hypertension and a non-STEMI DC, Who I have seen in the past and who has been diagnosed with bilateral hip osteoarthritis. In the past the patient has declined the option of an intra-articular steroid injection to alleviate some of her discomfort. The patient reports progressive ambulatory dysfunction to the point where she is unable to climb the stairs into her house. Past Medical History Cardiac Medical History: Reports: Hypertension Musculoskeltal Medical History: Reports: Arthritis - osteoarthritis knees bi laterally Social History Information Source: Patient, [facility] Records Lives with: Family Smoking Status: Never Smoker Frequency of Alcohol Use: None Hx Recreational Drug Use: No Drugs: None Hx Prescription Drug Abuse: No - Advance Directive Resuscitation Status: Full Code Family History Family History: None, Reviewed & Not Pertinent Parental Family History Reviewed: No Children Family History Reviewed: No Sibling(s) Family History Reviewed.: No Medication/Allergy Home Medications: Amlodipine Besylate [Norvasc 5 mg Tablet] 5 mg PO DAILY 02/17/18 Pyridostigmine [place] [Mestinon 60 mg Tablet] 60 mg PO Q6 02/17/18 Allergies/Adverse Reactions: egg Allergy (Unknown, Verified 10/21/17 10:41) bee pollen [Bee Pollen] Allergy (Verified 08/22/17 07:52) Penicillins Allergy (Verified 10/21/17 10:41) Review of Systems All systems: as per [facility] Physical Exam Vital Signs: Temp Pulse Resp BP Pulse Ox 36.7 C 65 16 163/72 H 100 02/17/18 08:22 02/17/18 08:22 02/17/18 08:22 02/17/18 08:22 02/17/18 08:22 Intake & Output 02/16/18 02/17/18 02/18/18 06:59 06:59 06:59 Weight 72.3 kg Physical Exam: The patient's middle-aged black female lying in a hospital bed. There is a fair amount of rambling and is very difficult to get the patient to focus on the reason for the visit. General appearance: PRESENT: no acute distress Head exam: PRESENT: normocephalic Respiratory exam: PRESENT: unlabored Cardiovascular exam: PRESENT: RRR Pulses: PRESENT: +1 pedal pulses bilateral Vascular exam: PRESENT: normal capillary refill GI/Abdominal exam: PRESENT: soft Rectal exam: PRESENT: deferred Extremities exam: PRESENT: other - Passive range of motion of the right hip results in discomfort. This is both in terms of flexion as well as internal and external rotation. Leg lengths are equal. There is brisk capillary refill. Motor function to the great toe flexion and extension is intact. Neurological exam: PRESENT: alert, awake Skin exam: PRESENT: dry, intact, warm. ABSENT: cyanosis, rash Results Laboratory Results: 02/17/18 04:43 02/17/18 04:43 02/16/18 02/16/18 02/16/18 18:34 18:34 21:10 WBC 8.5 RBC 4.67 Hgb 14.1 Hct 41.7 MCV 89 MCH 30.3 MCHC 33.9 RDW 13.0 Plt Count 304 Seg Neutrophils % 83.8 H Lymphocytes % 10.2 L Monocytes % 4.8 Eosinophils % 0.3 Basophils % 0.9 Absolute Neutrophils 7.1 Absolute Lymphocytes 0.9 Absolute Monocytes 0.4 Absolute Eosinophils 0.0 Absolute Basophils 0.1 Sodium 142.6 Potassium 4.1 Chloride 112 H Carbon Dioxide 30 Anion Gap 1 L BUN 7 Creatinine 0.65 Est GFR ( Amer) > 60 Est GFR (Non-Af Amer) > 60 Glucose 101 Calcium 10.5 H Magnesium 2.2 Total Bilirubin 0.9 AST 37 H ALT 8 L Alkaline Phosphatase 98 Total Protein 7.9 Albumin 4.3 Triglycerides Cholesterol LDL Cholesterol Direct VLDL Cholesterol HDL Cholesterol Urine Color STRAW Urine Appearance CLEAR Urine pH 7.0 Ur Specific [place] 1.005 Urine Protein NEGATIVE Urine Glucose (UA) NEGATIVE Urine Ketones NEGATIVE Urine Blood NEGATIVE Urine Nitrite NEGATIVE Ur Leukocyte Esterase NEGATIVE Urine WBC (Auto) 2 Urine RBC (Auto) 1 02/17/18 02/17/18 04:43 04:43 WBC 5.7 RBC 4.20 Hgb 12.7 Hct 36.9 MCV 88 MCH 30.1 MCHC 34.3 RDW 12.8 Plt Count 261 Seg Neutrophils % 64.5 Lymphocytes % 25.2 Monocytes % 7.6 Eosinophils % 0.5 Basophils % 2.2 H Absolute Neutrophils 3.7 Absolute Lymphocytes 1.4 Absolute Monocytes 0.4 Absolute Eosinophils 0.0 Absolute Basophils 0.1 Sodium 143.3 Potassium 4.0 Chloride 116 H Carbon Dioxide 28 Anion Gap -1 L BUN 6 L Creatinine 0.59 Est GFR ( Amer) > 60 Est GFR (Non-Af Amer) > 60 Glucose 80 Calcium 9.8 Magnesium 2.2 Total Bilirubin 0.8 AST 18 ALT 15 Alkaline Phosphatase 75 Total Protein 5.9 L Albumin 3.2 L Triglycerides 45 Cholesterol 153.31 LDL Cholesterol Direct 80 VLDL Cholesterol 9.0 L HDL Cholesterol 62 Urine Color Urine Appearance Urine pH Ur Specific [place] Urine Protein Urine Glucose (UA) Urine Ketones Urine Blood Urine Nitrite Ur Leukocyte Esterase Urine WBC (Auto) Urine RBC (Auto) 02/16/18 02/16/18 02/16/18 18:34 20:02 22:45 Creatine Kinase 122 CK-MB (CK-2) Troponin I 0.275 0.313 02/16/18 02/17/18 02/17/18 22:45 04:43 04:43 Creatine Kinase 122 CK-MB (CK-2) 2.09 1.92 Troponin I 0.358 0.298 02/17/18 02/17/18 10:55 10:55 Creatine Kinase 117 CK-MB (CK-2) 1.67 Troponin I 0.215 Impressions: Chest X-Ray 02/16/18 18:19 IMPRESSION: NO ACUTE RADIOGRAPHIC FINDING IN THE CHEST. Status: Imported from PACS Assessment & Plan - Diagnosis (1) Unilateral primary osteoarthritis, right hip Is this a current diagnosis for this admission?: Yes Plan: 67-year-old female with declining functional status that I think is at least in part related to right hip arthritis. At this point with the patient's comorbidities surgical intervention is not a viable option. I do think the patient would benefit from an intra-articular steroid injection. I think when her medical condition permits, potentially radiology can perform an image guided injection into the right hip which would provide 2-3 months of pain relief and potentially improved function to allow ongoing physical therapy and strengthening. - Time Time Spent: 50 to 70 Minutes Anticipated discharge: SNF Within: Other
[2018-02-17] MEDS: PYRIDOSTIGMINE BROMIDE 60 MG TABLET PO SCH ×2 (14:43→18:26)
[2018-02-17] MEDS ORDERED: PYRIDOSTIGMINE BROMIDE 60 MG TABLET PO SCH (18:00)
--- NOTE | 2018-02-17 19:01 | PDOC PROGRESS REPORT ---
Subjective Progress Note for:: 02/17/18 Subjective:: Asked to see this patient by ER physician and also Dr. Gongora in consultation. Patient was previously seen by me in 2017 but did not keep appointment in the office in 2018. This 67-year-old female with a significant history of the myasthenia gravis severe osteoarthritis hypertension's hyperlipidemia came to the office yesterday for just the wheelchair with prescriptions no complaints went to the home but feeling more weak unable to climb the stair and patient is brought to the emergency department where initial workup was all stable except patient's troponin was elevated Patient's denied any chest pain patient is probably criteria for non-ST [place] and patient decided to admit per discussed with the cardiology Dr. Ram When I saw the patient's denied any chest pain but patient is complaining of some short of breath when this incident happened Patient is currently denied any symptoms. The patient has usual significant weakness in the lower extremity Patient has severe osteoarthritis in the bilateral hip currently see a Dr. 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 to go and see the ginner for the myasthenia gravis was referred to the [facility]. This history obtained by Dr. Gongora was reviewed. Patient could not add much to the history. She is still denies any chest pains. Patient is noted to have a rise and fall in Troponin I pattern. However no chest pain and no significant ST segment changes. Patient also evaluated by Dr. Matos who plans to inject her hip joints. Patient has very little understanding of what is going on. She is also very hard of hearing. Reason For Visit: NON ST [place] Physical Exam Vital Signs: Temp Pulse Resp BP Pulse Ox 97.7 F 68 16 143/61 H 98 02/17/18 16:01 02/17/18 18:47 02/17/18 16:01 02/17/18 16:01 02/17/18 16:01 Intake & Output 02/16/18 02/17/18 02/18/18 06:59 06:59 06:59 Intake Total 355 Balance 355 Weight 72.3 kg Exam: GENERAL: well-nourished and in no acute distress. Alert and oriented x3 HEAD: Atraumatic, normocephalic. EYES: [place], sclera anicteric, conjunctiva are normal. Patient noted to have bilateral reduced vision. ENT: Moist mucous membranes. No oral ulcerations or bleeding gums noted. No obvious ear, nose or throat abnormalities noted. She is noted to have difficulty with hearing. NECK: supple without lymphadenopathy. Trachea is central. No cervical or axillary lymphadenopathy noted. Carotids are 2+, JVD WNL LUNGS: Breath sounds clear bilaterally. No wheezes rales or rhonchi noted. No significant dullness noted on percussion. CHEST: Palpation of the chest wall shows no significant chest wall tenderness. 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 ABDOMEN: Soft, no significant tenderness appreciated, normoactive bowel sounds. No guarding, no rebound. No rigidity noted . No masses appreciated. EXTREMITIES: Pedal pulses are 1-2+, no calf tenderness noted. No clubbing or cyanosis. 1+ pedal edema noted NEUROLOGICAL: Focused neurological exam showed no significant neurologic deficit. Normal speech, no focal weakness appreciated. PSYCH: Normal mood, normal affect. Judgment and insight within normal limits. SKIN: No significant ecchymosis, skin is noted to be warm. MUSCULOSKELETAL EXAM: No significant acute joint swelling noted. Results Laboratory Results: 02/17/18 04:43 02/17/18 04:43 02/16/18 02/16/18 02/17/18 18:34 21:10 04:43 WBC RBC Hgb Hct MCV MCH MCHC RDW Plt Count Seg Neutrophils % Lymphocytes % Monocytes % Eosinophils % Basophils % Absolute Neutrophils Absolute Lymphocytes Absolute Monocytes Absolute Eosinophils Absolute Basophils Sodium 142.6 143.3 Potassium 4.1 4.0 Chloride 112 H 116 H Carbon Dioxide 30 28 Anion Gap 1 L -1 L BUN 7 6 L Creatinine 0.65 0.59 Est GFR ( Amer) > 60 > 60 Est GFR (Non-Af Amer) > 60 > 60 Glucose 101 80 Calcium 10.5 H 9.8 Magnesium 2.2 2.2 Total Bilirubin 0.9 0.8 AST 37 H 18 ALT 8 L 15 Alkaline Phosphatase 98 75 Total Protein 7.9 5.9 L Albumin 4.3 3.2 L Triglycerides 45 Cholesterol 153.31 LDL Cholesterol Direct 80 VLDL Cholesterol 9.0 L HDL Cholesterol 62 Urine Color STRAW Urine Appearance CLEAR Urine pH 7.0 Ur Specific [place] 1.005 Urine Protein NEGATIVE Urine Glucose (UA) NEGATIVE Urine Ketones NEGATIVE Urine Blood NEGATIVE Urine Nitrite NEGATIVE Ur Leukocyte Esterase NEGATIVE Urine WBC (Auto) 2 Urine RBC (Auto) 1 02/17/18 04:43 WBC 5.7 RBC 4.20 Hgb 12.7 Hct 36.9 MCV 88 MCH 30.1 MCHC 34.3 RDW 12.8 Plt Count 261 Seg Neutrophils % 64.5 Lymphocytes % 25.2 Monocytes % 7.6 Eosinophils % 0.5 Basophils % 2.2 H Absolute Neutrophils 3.7 Absolute Lymphocytes 1.4 Absolute Monocytes 0.4 Absolute Eosinophils 0.0 Absolute Basophils 0.1 Sodium Potassium Chloride Carbon Dioxide Anion Gap BUN Creatinine Est GFR ( Amer) Est GFR (Non-Af Amer) Glucose Calcium Magnesium Total Bilirubin AST ALT Alkaline Phosphatase Total Protein Albumin Triglycerides Cholesterol LDL Cholesterol Direct VLDL Cholesterol HDL Cholesterol Urine Color Urine Appearance Urine pH Ur Specific [place] Urine Protein Urine Glucose (UA) Urine Ketones Urine Blood Urine Nitrite Ur Leukocyte Esterase Urine WBC (Auto) Urine RBC (Auto) 02/16/18 02/16/18 02/16/18 18:34 20:02 22:45 Creatine Kinase 122 CK-MB (CK-2) Troponin I 0.275 0.313 02/16/18 02/17/18 02/17/18 22:45 04:43 04:43 Creatine Kinase 122 CK-MB (CK-2) 2.09 1.92 Troponin I 0.358 0.298 02/17/18 02/17/18 10:55 10:55 Creatine Kinase 117 CK-MB (CK-2) 1.67 Troponin I 0.215 EKG Comments: Sinus rhythm and WNL Impressions: Chest X-Ray 02/16/18 18:19 IMPRESSION: NO ACUTE RADIOGRAPHIC FINDING IN THE CHEST. Assessment & Plan - Diagnosis (1) Hypertension Qualifiers: Hypertension type: unspecified Qualified Code(s): I10 - Essential (primary) hypertension Is this a current diagnosis for this admission?: Yes (2) Myasthenia gravis Is this a current diagnosis for this admission?: Yes (3) Weakness Is this a current diagnosis for this admission?: Yes (4) Ambulatory dysfunction Is this a current diagnosis for this admission?: Yes (5) Elevated troponin I level Is this a current diagnosis for this admission?: Yes - Notes Notes: Positive troponin I elevation. Exact etiology not clear but does not qualify fo r non-STEMI diagnosis because of absence of chest pain and EKG changes. Will look for other causes of troponin I elevation such as pulmonary embolism. Will order a CTA of the chest. Agree with empiric anticoagulation with Lovenox. Hypertension: Blood pressure is well controlled. BP goal 140/90 or less. Myasthenia gravis: Continue current medical management. Generalized weakness: Possibly related to myasthenia gravis gravis and other general debility. Ambulatory dysfunction: Possibly multifactorial. Arthritis could be playing a major role. - Time Time with patient: Greater than 35 minutes - Plan to obtain 2D echo, nuclear stress test. Will order a CT of the chest to rule out pulmonary embolism and also evaluate dyspnea. Patient medical regimen reviewed. Will continue on current regimen Medications reviewed and adjusted accordingly: Yes
[2018-02-17] MEDS: ENOXAPARIN SODIUM INJ 80 MG/0.8 ML DISP.SYRIN SUBCUT SCH (21:57)
[2018-02-17] MEDS: ATORVASTATIN CALCIUM 10 MG TABLET PO SCH (21:57)
[2018-02-18] MEDS: PYRIDOSTIGMINE BROMIDE 60 MG TABLET PO SCH ×4 (00:10→17:35)
[2018-02-18] MEDS: LANSOPRAZOLE 15 MG TAB.RAP.DR PO SCH ×2 (05:12→17:35)
[2018-02-18 06:47] LABS: HEMATOCRIT 39.5 % (36.0-47.0); HEMOGLOBIN 13.2 g/dL (12.0-15.5); MEAN CORPUSCULAR HEMOGLOBIN 29.8 pg (27.0-33.4); MEAN CORPUSCULAR HGB CONC 33.4 g/dL (32.0-36.0); MEAN CORPUSCULAR VOLUME 89 fl (80-97); PLATELET COUNT 267 10^3/uL (150-450); RED BLOOD COUNT 4.43 10^6/uL (3.72-5.28)
[2018-02-18 07:13] LABS: BLOOD UREA NITROGEN 11 mg/dL (7-20); CALCIUM 9.6 mg/dL (8.4-10.2); GLUCOSE 78 mg/dL (75-110); POTASSIUM 4.2 mmol/L (3.6-5.0)
[2018-02-18 07:19] LABS: CARBON DIOXIDE 29 mmol/L (22-30); CHLORIDE 111 mmol/L (98-107)
[2018-02-18 07:26] LABS: ANION GAP 1 (5-19)
--- NOTE | 2018-02-18 09:02 | PDOC PROGRESS REPORT ---
Subjective Progress Note for:: 02/18/18 Subjective:: Patient is currently doing well Patient is denied any chest pain to than any shortness of the breath Patient is refused for the VQ scan refused with a CT of the LS spine yesterday Patient also scheduled for the stress test but patients not sure whether she is going or not Reason For Visit: NON ST [place] Physical Exam Vital Signs: Temp Pulse Resp BP Pulse Ox 97.9 F 62 16 169/63 H 100 02/18/18 07:45 02/18/18 07:45 02/18/18 07:45 02/18/18 07:45 02/18/18 07:45 Intake & Output 02/17/18 02/18/18 02/19/18 06:59 06:59 06:59 Intake Total 355 Output Total 175 Balance 180 Weight 72.3 kg General appearance: PRESENT: no acute distress, well-developed, well-nourished Head exam: PRESENT: atraumatic, normocephalic Eye exam: PRESENT: conjunctiva pink, EOMI, PERRLA. ABSENT: scleral icterus Ear exam: PRESENT: normal external ear exam Mouth exam: PRESENT: moist, tongue midline Neck exam: PRESENT: full ROM. ABSENT: carotid bruit, JVD, lymphadenopathy, thyromegaly Respiratory exam: PRESENT: clear to auscultation lucy Cardiovascular exam: PRESENT: RRR. ABSENT: diastolic murmur, rubs, systolic murmur Pulses: PRESENT: normal dorsalis pedis pul, +2 pedal pulses bilateral Vascular exam: PRESENT: normal capillary refill GI/Abdominal exam: PRESENT: normal bowel sounds, soft. ABSENT: distended, guarding, mass, organolmegaly, rebound, tenderness Rectal exam: PRESENT: deferred Extremities exam: ABSENT: pedal edema Neurological exam: PRESENT: alert, awake, oriented to person, oriented to place, oriented to time, oriented to situation, CN II-XII grossly intact. ABSENT: motor sensory deficit Psychiatric exam: PRESENT: appropriate affect, normal mood. ABSENT: homicidal ideation, suicidal ideation Skin exam: PRESENT: dry, intact, warm. ABSENT: cyanosis, rash Results Laboratory Results: 02/18/18 06:07 02/18/18 06:07 02/18/18 02/18/18 06:07 06:07 WBC 5.0 RBC 4.43 Hgb 13.2 Hct 39.5 MCV 89 MCH 29.8 MCHC 33.4 RDW 13.0 Plt Count 267 Sodium 141.0 Potassium 4.2 Chloride 111 H Carbon Dioxide 29 Anion Gap 1 L BUN 11 Creatinine 0.77 Est GFR ( Amer) > 60 Est GFR (Non-Af Amer) > 60 Glucose 78 Calcium 9.6 02/16/18 02/16/18 02/16/18 18:34 20:02 22:45 Creatine Kinase 122 CK-MB (CK-2) Troponin I 0.275 0.313 02/16/18 02/17/18 02/17/18 22:45 04:43 04:43 Creatine Kinase 122 CK-MB (CK-2) 2.09 1.92 Troponin I 0.358 0.298 02/17/18 02/17/18 10:55 10:55 Creatine Kinase 117 CK-MB (CK-2) 1.67 Troponin I 0.215 Impressions: Chest X-Ray 02/16/18 18:19 IMPRESSION: NO ACUTE RADIOGRAPHIC FINDING IN THE CHEST. Assessment & Plan - Diagnosis (1) NSTEMI (non-ST elevated myocardial infarction) Is this a current diagnosis for this admission?: Yes Plan: Not clear per cardiology with elevated troponin without EKG changes and without any chest pain Schedule for the stress test but patient is not sure about she is doing well not (2) Hypertension Qualifiers: Hypertension type: unspecified Qualified Code(s): I10 - Essential (primary) hypertension Is this a current diagnosis for this admission?: Yes Plan: to current medications (3) Myasthenia gravis Is this a current diagnosis for this admission?: Yes (4) Weakness Is this a current diagnosis for this admission?: Yes Plan: Get the physical therapy evaluations (5) SI joint arthritis Is this a current diagnosis for this admission?: Yes Plan: Cardiology patient should be okay to get the injection on Friday - Time Time Spent with patient: 15-24 minutes Medications reviewed and adjusted accordingly: Yes Anticipated discharge: Home - Plan Summary Plan Summary: Discussed with the patient about VQ scan does not involve the IV dye and also scheduled for the CT of the LS spine Patients will think about it discussed with the patient's daughter
[2018-02-18] MEDS: ASPIRIN 81 MG TABLET, CHEWABLE PO SCH (10:10)
[2018-02-18] MEDS: AMLODIPINE BESYLATE 5 MG TABLET PO SCH (10:10)
[2018-02-18] MEDS: METOPROLOL TARTRATE 25 MG TABLET PO SCH ×2 (10:10→21:51)
[2018-02-18] MEDS: ENOXAPARIN SODIUM INJ 80 MG/0.8 ML DISP.SYRIN SUBCUT SCH ×2 (10:10→21:50)
--- NOTE | 2018-02-18 13:05 | XCELERA REPORT ---
[address] [address] Transthoracic Echocardiogram Report Name: JULIANN OROZCO Age: 67 yrs Gender: Female : 1950 Patient Status: Inpatient Patient Location: [address] [place] [address] Study Date: 02/18/2018 11:43 AM Procedure: A complete two-dimensional transthoracic echocardiogram was performed (2D, M-mode, spectral and color flow Doppler). The study was technically adequate with some images being suboptimal in quality. Reason For Study: Troponin elevation Ordering Physician: MEGAN SAGE Performed By: Tami Shaw Interpretation Summary The left ventricular ejection fraction is normal. There is mild concentric left ventricular hypertrophy. The left ventricle is grossly normal size. Doppler measurements suggest pseudonormalized left ventricular relaxation, which is associated with grade II/IV or mild to moderate diastolic dysfunction Wall motion cannot be accurately commented on, but no definite regional wall motion abnormalities noted. The right ventricle is grossly normal size. The right ventricular systolic function is normal. The left atrial size is normal. The right atrium is normal in size There is a trace amount of mitral regurgitation There is no mitral valve stenosis. No aortic regurgitation is present. There is no aortic valve stenosis There is a mild amount of tricuspid regurgitation There is mild pulmonary hypertension by echo Best estimated RVSP is approximately 45 mm/Hg. The aortic root is not well visualized but is probably normal size. The inferior vena cava appeared normal and decreased > 50% with respiration (RAP 5-10 mmHg) Minimal pericardial effusion. MMode/2D Measurements & Calculations RVDd: 2.4 cm LVIDd: 3.8 cm FS: 37.8 % Ao root diam: 2.5 cm IVSd: 0.85 cm LVIDs: 2.3 cm EDV(Teich): 60.5 ml Ao root area: 4.8 cm2 LVPWd: 0.99 cm ESV(Teich): 18.9 ml EF(Teich): 68.8 % Doppler Measurements & Calculations MV E max jolene: MV dec slope: Ao V2 max: LV V1 max P.4 cm/sec 312.0 cm/sec 4.8 mmHg MV A max jolene: 228.8 cm/sec2 Ao max PG: LV V1 mean P.7 cm/sec MV dec time: 0.26 sec39.0 mmHg 2.7 mmHg MV E/A: 0.60 Ao V2 mean: LV V1 max: 220.1 cm/sec 109.7 cm/sec Ao mean PG: LV V1 mean: 21.8 mmHg 79.1 cm/sec Ao V2 VTI: 65.7 cm LV V1 VTI: 22.1 cm TR max jolene: 292.9 cm/sec TR max P.4 mmHg Left Ventricle The left ventricle is grossly normal size. There is mild concentric left ventricular hypertrophy. The left ventricular ejection fraction is normal. Doppler measurements suggest pseudonormalized left ventricular relaxation, which is associated with grade II/IV or mild to moderate diastolic dysfunction. Wall motion cannot be accurately commented on, but no definite regional wall motion abnormalities noted. Right Ventricle The right ventricle is grossly normal size. There is normal right ventricular wall thickness. The right ventricular systolic function is normal. Atria The right atrium is normal in size. The left atrial size is normal. Interarterial septum not well visualized and not well dopplered. Cannot comment on ASD/PFO presence. Mitral Valve The mitral valve is grossly normal. There is no mitral valve stenosis. There is a trace amount of mitral regurgitation. Aortic Valve The aortic valve opens well. The aortic valve is not well visualized secondary to technical limitations. There is no aortic valve stenosis. No aortic regurgitation is present. Tricuspid Valve The tricuspid valve is not well visualized, but is grossly normal. There is no tricuspid stenosis. There is a mild amount of tricuspid regurgitation. There is mild pulmonary hypertension by echo. Best estimated RVSP is approximately 45 mm/Hg. Pulmonic Valve The pulmonic valve is not well visualized. Great Vessels The aortic root is not well visualized but is probably normal size. The inferior vena cava appeared normal and decreased > 50% with respiration (RAP 5-10 mmHg). Effusions Minimal pericardial effusion. : MEGAN SAGE > Megan Sage
--- NOTE | 2018-02-18 18:53 | PDOC PROGRESS REPORT ---
Subjective Progress Note for:: 02/18/18 Subjective:: Patient seems to be doing better with gradual improvement. Pt is denying any chest arm or neck discomfort. Patient denying any PND, orthopnea. Patient denied any sustained palpitations, dizziness, syncope, near syncope. Patient denying any fever chills. Patient denying any other significant discomfort. Patient noted to have significant general debility. Patient is maintaining sinus rhythm. Review of systems: Rest review of systems negative. Medications: Medications have been reviewed. Reason For Visit: NON ST [place] Physical Exam Vital Signs: Temp Pulse Resp BP Pulse Ox 98.0 F 59 L 16 145/55 H 95 02/18/18 16:01 02/18/18 16:01 02/18/18 16:01 02/18/18 16:01 02/18/18 16:01 Intake & Output 02/17/18 02/18/18 02/19/18 06:59 06:59 06:59 Intake Total 355 414 Output Total 175 Balance 180 414 Weight 72.3 kg Exam: GENERAL: well-nourished and in no acute distress. Alert and oriented x3 HEAD: Atraumatic, normocephalic. EYES: HAROON, sclera anicteric, conjunctiva are normal. ENT: Moist mucous membranes. No oral ulcerations or bleeding gums noted. No obvious ear, nose or throat abnormalities noted. NECK: supple without lymphadenopathy. Trachea is central. No cervical or axillary lymphadenopathy noted. Carotids are 2+, JVD WNL LUNGS: Breath sounds clear bilaterally. No wheezes rales or rhonchi noted. No significant dullness noted on percussion. CHEST: Palpation of the chest wall shows no significant chest wall tenderness. 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 ABDOMEN: Soft, no significant tenderness appreciated, normoactive bowel sounds. No guarding, no rebound. No rigidity noted . No masses appreciated. EXTREMITIES: Pedal pulses are 1-2+, no calf tenderness noted. No clubbing or cyanosis. negative pedal edema noted NEUROLOGICAL: Focused neurological exam showed no significant neurologic deficit. Normal speech, no focal weakness appreciated. PSYCH: Normal mood, normal affect. Judgment and insight within normal limits. SKIN: No significant ecchymosis, skin is noted to be warm. MUSCULOSKELETAL EXAM: No significant acute joint swelling noted. Results Laboratory Results: 02/18/18 06:07 02/18/18 06:07 02/18/18 02/18/18 06:07 06:07 WBC 5.0 RBC 4.43 Hgb 13.2 Hct 39.5 MCV 89 MCH 29.8 MCHC 33.4 RDW 13.0 Plt Count 267 Sodium 141.0 Potassium 4.2 Chloride 111 H Carbon Dioxide 29 Anion Gap 1 L BUN 11 Creatinine 0.77 Est GFR ( Amer) > 60 Est GFR (Non-Af Amer) > 60 Glucose 78 Calcium 9.6 02/16/18 02/16/18 02/16/18 18:34 20:02 22:45 Creatine Kinase 122 CK-MB (CK-2) Troponin I 0.275 0.313 02/16/18 02/17/18 02/17/18 22:45 04:43 04:43 Creatine Kinase 122 CK-MB (CK-2) 2.09 1.92 Troponin I 0.358 0.298 02/17/18 02/17/18 10:55 10:55 Creatine Kinase 117 CK-MB (CK-2) 1.67 Troponin I 0.215 EKG Comments: Sinus rhythm, no sustained tachycardia or bradycardia arrhythmias noted. Impressions: Chest X-Ray 02/16/18 18:19 IMPRESSION: NO ACUTE RADIOGRAPHIC FINDING IN THE CHEST. Assessment & Plan - Diagnosis (1) Hypertension Qualifiers: Hypertension type: unspecified Qualified Code(s): I10 - Essential (primary) hypertension Is this a current diagnosis for this admission?: Yes (2) Myasthenia gravis Is this a current diagnosis for this admission?: Yes (3) Weakness Is this a current diagnosis for this admission?: Yes (4) Ambulatory dysfunction Is this a current diagnosis for this admission?: Yes (5) Elevated troponin I level Is this a current diagnosis for this admission?: Yes - Notes Notes: Patient scheduled for a nuclear stress test. Nurses tell me that she has agreed to pursue this test. 2D echo results reviewed with the patient. It showed LVEF to be well preserved. No significant stenotic or regurgitant lesions noted. Patient generally stable. Patient is undergoing stress test to evaluate for underlying CAD as cause of elevated troponin I. - Time Time with patient: Greater than 35 minutes - Discussed nuclear stress test risk benefits. Discussed echocardiogram results. Patient's medications reviewed. No medication changes performed. Medications reviewed and adjusted accordingly: Yes
[2018-02-18] MEDS: ATORVASTATIN CALCIUM 10 MG TABLET PO SCH (21:50)
[2018-02-19] MEDS: PYRIDOSTIGMINE BROMIDE 60 MG TABLET PO SCH ×4 (00:02→17:15)
[2018-02-19 03:57] LABS: APPEARANCE,URINE SLIGHTLY-CLOUDY; BILIRUBIN,URINE NEGATIVE (NEGATIVE); COLOR,URINE YELLOW; GLUCOSE, URINE NEGATIVE (NEGATIVE); KETONES,URINE NEGATIVE (NEGATIVE); LEUKOCYTE ESTERASE,URINE NEGATIVE (NEGATIVE); NITRITE,URINE NEGATIVE (NEGATIVE); PROTEIN,URINE NEGATIVE (NEGATIVE); URINE SPECIFIC GRAVITY 1.014
[2018-02-19] MEDS: LANSOPRAZOLE 15 MG TAB.RAP.DR PO SCH ×2 (05:23→17:15)
[2018-02-19 05:41] LABS: ABSOLUTE BASOPHILS # (AUTO) 0.1 10^3/uL (0.0-0.2); ABSOLUTE EOSINOPHILS # (AUTO) 0.1 10^3/uL (0.0-0.6); ABSOLUTE LYMPHOCYTES (AUTO) 1.5 10^3/uL (0.5-4.7); ABSOLUTE MONOCYTES (AUTO) 0.4 10^3/uL (0.1-1.4); BASOPHILS % (AUTO) 1.3 % (0-2); EOSINOPHILS % (AUTO) 2.2 % (0-6); HEMATOCRIT 40.8 % (36.0-47.0); HEMOGLOBIN 13.7 g/dL (12.0-15.5); LYMPHOCYTES % (AUTO) 29.6 % (13-45); MEAN CORPUSCULAR HEMOGLOBIN 29.7 pg (27.0-33.4); MEAN CORPUSCULAR HGB CONC 33.6 g/dL (32.0-36.0); MEAN CORPUSCULAR VOLUME 88 fl (80-97); MONOCYTES % (AUTO) 8.3 % (3-13); PLATELET COUNT 272 10^3/uL (150-450); RED BLOOD COUNT 4.63 10^6/uL (3.72-5.28); RED CELL DISTRIBUTION WIDTH 12.9 % (11.5-14.0); SEGMENTED NEUTROPHILS % (AUTO) 58.6 % (42-78); TOTAL CELLS COUNTED % (AUTO) 100 %; WHITE BLOOD COUNT 5.1 10^3/uL (4.0-10.5)
[2018-02-19 06:06] LABS: BLOOD UREA NITROGEN 10 mg/dL (7-20); CALCIUM 9.7 mg/dL (8.4-10.2); GLUCOSE 87 mg/dL (75-110); POTASSIUM 4.1 mmol/L (3.6-5.0)
[2018-02-19 06:13] LABS: CARBON DIOXIDE 27 mmol/L (22-30); CHLORIDE 112 mmol/L (98-107); SODIUM 140.5 mmol/L (137-145)
[2018-02-19 06:29] LABS: ANION GAP 1 (5-19)
[2018-02-19] MEDS: ASPIRIN 81 MG TABLET, CHEWABLE PO SCH (09:59)
[2018-02-19] MEDS: METOPROLOL TARTRATE 25 MG TABLET PO SCH ×2 (10:00→22:00)
[2018-02-19] MEDS: AMLODIPINE BESYLATE 5 MG TABLET PO SCH (10:00)
[2018-02-19] MEDS: ENOXAPARIN SODIUM INJ 80 MG/0.8 ML DISP.SYRIN SUBCUT SCH ×2 (10:01→23:02)
--- NOTE | 2018-02-19 12:27 | PDOC PROGRESS REPORT ---
Subjective Progress Note for:: 02/19/18 Subjective:: Patient is currently denied any chest pain Patient is refused for the CT of the LS spine Patient is refused for the VQ scan Patient is refused for the stress test Patient is currently denied any chest pain denied any shortness of the breath Very extensively discussed with the patient about the how important need to be test patient still refusing Try to contact the daughter with that she can explain the patient otherwise nothing else can do with the patient Reason For Visit: NON ST [place] Physical Exam Vital Signs: Temp Pulse Resp BP Pulse Ox 97.6 F 67 16 189/79 H 99 02/19/18 08:01 02/19/18 08:01 02/19/18 08:01 02/19/18 08:01 02/19/18 08:01 Intake & Output 02/18/18 02/19/18 02/20/18 06:59 06:59 06:59 Intake Total 355 414 Output Total 175 Balance 180 414 Weight 72.1 kg General appearance: PRESENT: no acute distress, well-developed, well-nourished Head exam: PRESENT: atraumatic, normocephalic Eye exam: PRESENT: conjunctiva pink, EOMI, PERRLA. ABSENT: scleral icterus Ear exam: PRESENT: normal external ear exam Mouth exam: PRESENT: moist, tongue midline Neck exam: PRESENT: full ROM. ABSENT: carotid bruit, JVD, lymphadenopathy, thyromegaly Respiratory exam: PRESENT: clear to auscultation lucy Cardiovascular exam: PRESENT: RRR. ABSENT: diastolic murmur, rubs, systolic murmur Pulses: PRESENT: normal dorsalis pedis pul, +2 pedal pulses bilateral Vascular exam: PRESENT: normal capillary refill GI/Abdominal exam: PRESENT: normal bowel sounds, soft. ABSENT: distended, guarding, mass, organolmegaly, rebound, tenderness Rectal exam: PRESENT: deferred Extremities exam: ABSENT: pedal edema Neurological exam: PRESENT: alert, awake, oriented to person, oriented to place, oriented to time, oriented to situation, CN II-XII grossly intact. ABSENT: motor sensory deficit Psychiatric exam: PRESENT: appropriate affect, normal mood. ABSENT: homicidal ideation, suicidal ideation Skin exam: PRESENT: dry, intact, warm. ABSENT: cyanosis, rash Results Laboratory Results: 02/19/18 04:44 02/19/18 04:44 02/19/18 02/19/18 02/19/18 03:35 04:44 04:44 WBC 5.1 RBC 4.63 Hgb 13.7 Hct 40.8 MCV 88 MCH 29.7 MCHC 33.6 RDW 12.9 Plt Count 272 Seg Neutrophils % 58.6 Lymphocytes % 29.6 Monocytes % 8.3 Eosinophils % 2.2 Basophils % 1.3 Absolute Neutrophils 3.0 Absolute Lymphocytes 1.5 Absolute Monocytes 0.4 Absolute Eosinophils 0.1 Absolute Basophils 0.1 Sodium 140.5 Potassium 4.1 Chloride 112 H Carbon Dioxide 27 Anion Gap 1 L BUN 10 Creatinine 0.67 Est GFR ( Amer) > 60 Est GFR (Non-Af Amer) > 60 Glucose 87 Calcium 9.7 Urine Color YELLOW Urine Appearance SLIGHTLY-CLOUDY Urine pH 6.0 Ur Specific [place] 1.014 Urine Protein NEGATIVE Urine Glucose (UA) NEGATIVE Urine Ketones NEGATIVE Urine Blood NEGATIVE Urine Nitrite NEGATIVE Ur Leukocyte Esterase NEGATIVE Urine WBC (Auto) 3 Urine RBC (Auto) 5 02/16/18 21:10 Clean Catch Midstream Urine Culture - Final Proteus Mirabilis 02/16/18 02/16/18 02/16/18 18:34 20:02 22:45 Creatine Kinase 122 CK-MB (CK-2) Troponin I 0.275 0.313 02/16/18 02/17/18 02/17/18 22:45 04:43 04:43 Creatine Kinase 122 CK-MB (CK-2) 2.09 1.92 Troponin I 0.358 0.298 02/17/18 02/17/18 10:55 10:55 Creatine Kinase 117 CK-MB (CK-2) 1.67 Troponin I 0.215 Impressions: Chest X-Ray 02/16/18 18:19 IMPRESSION: NO ACUTE RADIOGRAPHIC FINDING IN THE CHEST. Assessment & Plan - Diagnosis (1) NSTEMI (non-ST elevated myocardial infarction) Is this a current diagnosis for this admission?: Yes Plan: Not clear per cardiology with elevated troponin without EKG changes and without any chest pain Schedule for the stress test but patient is not sure about she is doing well not (2) Hypertension Qualifiers: Hypertension type: unspecified Qualified Code(s): I10 - Essential (primary) hypertension Is this a current diagnosis for this admission?: Yes Plan: to current medications (3) Myasthenia gravis Is this a current diagnosis for this admission?: Yes (4) Weakness Is this a current diagnosis for this admission?: Yes (5) SI joint arthritis Is this a current diagnosis for this admission?: Yes - Time Time Spent with patient: 15-24 minutes Medications reviewed and adjusted accordingly: Yes Anticipated discharge: SNF Within: Other - Plan Summary Plan Summary: While patient is refusing the all the test nothing much can offer We will try to contact the daughter Hopefully patients can go to the nursing facility
[2018-02-19] MEDS: CIPROFLOXACIN HCL 500 MG TABLET PO SCH ×2 (13:38→23:50)
--- NOTE | 2018-02-19 21:13 | PDOC PROGRESS REPORT ---
Subjective Progress Note for:: 02/19/18 Subjective:: Patient did come down finally for stress test. She did consent. However she could not lay flat but was not noted to be short of breath by the staff. Patient would not continue with the testing. Therefore nuclear stress test was abandoned. Patient seems to be doing better with gradual improvement. Pt is denying any chest arm or neck discomfort. Patient denying any PND, orthopnea. Patient denied any sustained palpitations, dizziness, syncope, near syncope. Patient denying any fever chills. Patient denying any other significant discomfort. Patient noted to have significant general debility. Patient is maintaining sinus rhythm. Review of systems: Rest review of systems negative. Medications: Medications have been reviewed. Reason For Visit: NON ST [place] Physical Exam Vital Signs: Temp Pulse Resp BP Pulse Ox 97.8 F 60 16 163/65 H 100 02/19/18 16:00 02/19/18 20:23 02/19/18 16:00 02/19/18 16:00 02/19/18 16:00 Intake & Output 02/18/18 02/19/18 02/20/18 06:59 06:59 06:59 Intake Total 425 761 1936 Output Total 175 110 Balance 256 257 0582 Weight 72.1 kg Exam: GENERAL: well-nourished and in no acute distress. Alert and oriented x2 HEAD: Atraumatic, normocephalic. EYES: HAROON, sclera anicteric, conjunctiva are normal. ENT: Moist mucous membranes. No oral ulcerations or bleeding gums noted. No obvious ear, nose or throat abnormalities noted. NECK: supple without lymphadenopathy. Trachea is central. No cervical or axillary lymphadenopathy noted. Carotids are 2+, JVD WNL LUNGS: Breath sounds clear bilaterally. No wheezes rales or rhonchi noted. No significant dullness noted on percussion. CHEST: Palpation of the chest wall shows no significant chest wall tenderness. 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 ABDOMEN: Soft, no significant tenderness appreciated, normoactive bowel sounds. No guarding, no rebound. No rigidity noted . No masses appreciated. EXTREMITIES: Pedal pulses are 1-2+, no calf tenderness noted. No clubbing or cyanosis. negative pedal edema noted NEUROLOGICAL: Focused neurological exam showed no significant neurologic deficit. Normal speech, no focal weakness appreciated. PSYCH: Normal mood, normal affect. Judgment and insight not checked but could possibly be impaired. SKIN: No significant ecchymosis, skin is noted to be warm. MUSCULOSKELETAL EXAM: No significant acute joint swelling noted. Results Laboratory Results: 02/19/18 04:44 02/19/18 04:44 02/19/18 02/19/18 02/19/18 03:35 04:44 04:44 WBC 5.1 RBC 4.63 Hgb 13.7 Hct 40.8 MCV 88 MCH 29.7 MCHC 33.6 RDW 12.9 Plt Count 272 Seg Neutrophils % 58.6 Lymphocytes % 29.6 Monocytes % 8.3 Eosinophils % 2.2 Basophils % 1.3 Absolute Neutrophils 3.0 Absolute Lymphocytes 1.5 Absolute Monocytes 0.4 Absolute Eosinophils 0.1 Absolute Basophils 0.1 Sodium 140.5 Potassium 4.1 Chloride 112 H Carbon Dioxide 27 Anion Gap 1 L BUN 10 Creatinine 0.67 Est GFR ( Amer) > 60 Est GFR (Non-Af Amer) > 60 Glucose 87 Calcium 9.7 Urine Color YELLOW Urine Appearance SLIGHTLY-CLOUDY Urine pH 6.0 Ur Specific [place] 1.014 Urine Protein NEGATIVE Urine Glucose (UA) NEGATIVE Urine Ketones NEGATIVE Urine Blood NEGATIVE Urine Nitrite NEGATIVE Ur Leukocyte Esterase NEGATIVE Urine WBC (Auto) 3 Urine RBC (Auto) 5 02/16/18 21:10 Clean Catch Midstream Urine Culture - Final Proteus Mirabilis 02/16/18 02/16/18 02/16/18 18:34 20:02 22:45 Creatine Kinase 122 CK-MB (CK-2) Troponin I 0.275 0.313 02/16/18 02/17/18 02/17/18 22:45 04:43 04:43 Creatine Kinase 122 CK-MB (CK-2) 2.09 1.92 Troponin I 0.358 0.298 02/17/18 02/17/18 10:55 10:55 Creatine Kinase 117 CK-MB (CK-2) 1.67 Troponin I 0.215 EKG Comments: Telemetry shows sinus rhythm. Impressions: Chest X-Ray 02/16/18 18:19 IMPRESSION: NO ACUTE RADIOGRAPHIC FINDING IN THE CHEST. Assessment & Plan - Diagnosis (1) Hypertension Qualifiers: Hypertension type: unspecified Qualified Code(s): I10 - Essential (primary) hypertension Is this a current diagnosis for this admission?: Yes (2) Myasthenia gravis Is this a current diagnosis for this admission?: Yes (3) Weakness Is this a current diagnosis for this admission?: Yes (4) Ambulatory dysfunction Is this a current diagnosis for this admission?: Yes (5) Elevated troponin I level Is this a current diagnosis for this admission?: Yes - Notes Notes: Patient has declined to pursue multiple testing. Today patient could not complete nuclear stress test. Patient may have underlying dementia and has difficult time making any decision. Patient also clinically without any chest pain or any CHF. Troponin I elevation causes not clear, could well be acute coronary syndrome versus pulmonary embolism, versus sepsis, other multiple causes however due to patient not completing testing, cannot be definitive. Had discussion with Dr. Gongora. Feel that in the absence of further testing and patient not having much symptoms, it is best just to treat her medically. In this regard from cardiac standpoint would recommend aspirin long-term, Plavix for 1 month, could be prolonged if needed. Feel that patient should just be treated for symptoms. If she is having significant problems with hip pain, or other joint pain, the orthopedic surgeon could proceed with the injection. There are some risk but the main aim should be symptom relief in this patient. Please feel free to give me a call. Please note that patient did not have any EKG changes not had any complaints of chest pain during this hospitalization. For some unknown reason, troponin I levels were elevated. - Time Time with patient: Greater than 35 minutes - More than 50% of the time spent coordinating care, discussing management plans with involved caregivers. Management plans discussed with involved personnels. Medical decision making was of moderate to high complexity, patient's has multiple comorbidities. Medications reviewed and adjusted accordingly: Yes
[2018-02-19] MEDS: ATORVASTATIN CALCIUM 10 MG TABLET PO SCH (22:00)
[2018-02-19] MEDS ORDERED: CIPROFLOXACIN HCL 500 MG TABLET ONE (23:41)
[2018-02-20 05:25] LABS: HEMATOCRIT 38.9 % (36.0-47.0); HEMOGLOBIN 13.1 g/dL (12.0-15.5); MEAN CORPUSCULAR HGB CONC 33.7 g/dL (32.0-36.0); MEAN CORPUSCULAR VOLUME 89 fl (80-97); PLATELET COUNT 261 10^3/uL (150-450); RED BLOOD COUNT 4.37 10^6/uL (3.72-5.28); RED CELL DISTRIBUTION WIDTH 12.5 % (11.5-14.0); WHITE BLOOD COUNT 5.3 10^3/uL (4.0-10.5)
[2018-02-20] MEDS: LANSOPRAZOLE 15 MG TAB.RAP.DR PO SCH ×2 (06:07→17:57)
[2018-02-20] MEDS: PYRIDOSTIGMINE BROMIDE 60 MG TABLET PO SCH ×4 (06:07→17:57)
[2018-02-20] MEDS: AMLODIPINE BESYLATE 5 MG TABLET PO SCH (09:25)
[2018-02-20] MEDS: CIPROFLOXACIN HCL 500 MG TABLET PO SCH ×2 (09:25→21:20)
[2018-02-20] MEDS: METOPROLOL TARTRATE 25 MG TABLET PO SCH ×2 (09:25→21:20)
--- NOTE | 2018-02-20 09:28 | PDOC PROGRESS REPORT ---
Subjective Progress Note for:: 02/20/18 Subjective:: Patient's try to get the stress test yesterday but unable to get flat and unable to do the stress test According to the cardiology patient's echocardiogram is all stable but suggest continues to current medications with the Plavix for the next 1 month Patient have a still sometimes short of breath and discussed with the patient and the son and agreed to get the VQ scan and a chest x-ray today is all negative will DC the Lovenox Patients pretty much at this point stable per the cardiology for the injections in the hip Patient at this point will decided to put on the rehab because of the multiple multiple comorbidity Reason For Visit: NON ST [place] Physical Exam Vital Signs: Temp Pulse Resp BP Pulse Ox 98.1 F 71 17 151/66 H 97 02/20/18 07:51 02/20/18 07:51 02/20/18 07:51 02/20/18 07:51 02/20/18 07:51 Intake & Output 02/19/18 02/20/18 02/21/18 06:59 06:59 06:59 Intake Total 414 1282 Output Total 110 Balance 414 1172 Weight 72.1 kg 74.3 kg General appearance: PRESENT: no acute distress, well-developed, well-nourished Head exam: PRESENT: atraumatic, normocephalic Eye exam: PRESENT: conjunctiva pink, EOMI, PERRLA. ABSENT: scleral icterus Ear exam: PRESENT: normal external ear exam Mouth exam: PRESENT: moist, tongue midline Neck exam: PRESENT: full ROM. ABSENT: carotid bruit, JVD, lymphadenopathy, thyromegaly Respiratory exam: PRESENT: clear to auscultation lucy Cardiovascular exam: PRESENT: RRR. ABSENT: diastolic murmur, rubs, systolic murmur Pulses: PRESENT: normal dorsalis pedis pul, +2 pedal pulses bilateral Vascular exam: PRESENT: normal capillary refill GI/Abdominal exam: PRESENT: normal bowel sounds, soft. ABSENT: distended, guarding, mass, organolmegaly, rebound, tenderness Rectal exam: PRESENT: deferred Extremities exam: ABSENT: pedal edema Neurological exam: PRESENT: alert, awake, oriented to person, oriented to place, oriented to time, oriented to situation, CN II-XII grossly intact. ABSENT: motor sensory deficit Psychiatric exam: PRESENT: appropriate affect, normal mood. ABSENT: homicidal ideation, suicidal ideation Skin exam: PRESENT: dry, intact, warm. ABSENT: cyanosis, rash Results Laboratory Results: 02/20/18 05:00 02/19/18 04:44 02/20/18 05:00 WBC 5.3 RBC 4.37 Hgb 13.1 Hct 38.9 MCV 89 MCH 30.0 MCHC 33.7 RDW 12.5 Plt Count 261 02/16/18 21:10 Clean Catch Midstream Urine Culture - Final Proteus Mirabilis 02/16/18 02/16/18 02/16/18 18:34 20:02 22:45 Creatine Kinase 122 CK-MB (CK-2) Troponin I 0.275 0.313 02/16/18 02/17/18 02/17/18 22:45 04:43 04:43 Creatine Kinase 122 CK-MB (CK-2) 2.09 1.92 Troponin I 0.358 0.298 02/17/18 02/17/18 10:55 10:55 Creatine Kinase 117 CK-MB (CK-2) 1.67 Troponin I 0.215 Impressions: Chest X-Ray 02/16/18 18:19 IMPRESSION: NO ACUTE RADIOGRAPHIC FINDING IN THE CHEST. Assessment & Plan - Diagnosis (1) NSTEMI (non-ST elevated myocardial infarction) Is this a current diagnosis for this admission?: Yes Plan: Stress echocardiogram is all stable according to the cardiology unclear at this point the etiology about elevated troponin (2) Hypertension Qualifiers: Hypertension type: unspecified Qualified Code(s): I10 - Essential (primary) hypertension Is this a current diagnosis for this admission?: Yes Plan: to current medications (3) Myasthenia gravis Is this a current diagnosis for this admission?: Yes (4) Weakness Is this a current diagnosis for this admission?: Yes Plan: Get the physical therapy evaluations (5) SI joint arthritis Is this a current diagnosis for this admission?: Yes Plan: Cardiology patient should be okay to get the injection on Friday (6) Shortness of breath Is this a current diagnosis for this admission?: Yes Plan: Will get the VQ scan today and the chest x-ray (7) Ambulatory dysfunction Is this a current diagnosis for this admission?: Yes Plan: This needs to go to the rehab - Time Time Spent with patient: 15-24 minutes Medications reviewed and adjusted accordingly: Yes Anticipated discharge: SNF Within: Other - Plan Summary Plan Summary: Plan to send to rehab on a Friday
--- NOTE | 2018-02-20 11:02 | RADIOLOGY REPORT (SQ) ---
EXAM DESCRIPTION: CHEST 2 VIEWS COMPLETED DATE/TIME: 02/20/2018 10:55 am REASON FOR STUDY: shortness of breath COMPARISON: 02/16/2018. EXAM PARAMETERS: NUMBER OF VIEWS: two views TECHNIQUE: Digital Frontal and Lateral radiographic views of the chest acquired. RADIATION DOSE: NA LIMITATIONS: none FINDINGS: LUNGS AND PLEURA: No opacities, masses or pneumothorax. No pleural effusion. MEDIASTINUM AND HILAR STRUCTURES: No masses or contour abnormalities. HEART AND VASCULAR STRUCTURES: Heart normal size. No evidence for failure. BONES: No acute findings. HARDWARE: None in the chest. OTHER: No other significant finding. IMPRESSION: NO ACUTE RADIOGRAPHIC FINDING IN THE CHEST. TECHNICAL DOCUMENTATION: JOB ID: [id number] [employer]- All Rights Reserved Reading location - IP/workstation name: [email or web address]
[2018-02-20 11:28] LABS: APPEARANCE,URINE CLEAR; BILIRUBIN,URINE NEGATIVE (NEGATIVE); COLOR,URINE STRAW; GLUCOSE, URINE NEGATIVE (NEGATIVE); KETONES,URINE NEGATIVE (NEGATIVE); LEUKOCYTE ESTERASE,URINE NEGATIVE (NEGATIVE); NITRITE,URINE NEGATIVE (NEGATIVE); PROTEIN,URINE NEGATIVE (NEGATIVE); URINE SPECIFIC GRAVITY 1.004; UROBILINOGEN,URINE NEGATIVE mg/dL (<2.0)
--- NOTE | 2018-02-20 11:59 | RADIOLOGY REPORT (SQ) ---
EXAM DESCRIPTION: NM LUNG PERFUSION SCAN COMPLETED DATE/TIME: 02/20/2018 11:40 am REASON FOR STUDY: Shortness of breath COMPARISON: None. RADIONUCLIDE AND DOSE: 5 millicuries TC-99m MAA The route of agent administration: Intravenous TECHNIQUE: Eight views of the lungs acquired following injection of MAA. LIMITATIONS: None. FINDINGS: PERFUSION: Perfusion images with normal homogenous activity and no wedge-shaped or segment al defects. OTHER: No other significant finding. IMPRESSION: NORMAL PERFUSION LUNG SCAN. TECHNICAL DOCUMENTATION: JOB ID: [id number] [employer]- All Rights Reserved Reading location - IP/workstation name: [email or web address]
[2018-02-20] MEDS ORDERED: BETAMET ACET/BETAMET NA INJ 6 MG/1 ML IA PRN (13:45)
--- NOTE | 2018-02-20 15:31 | RADIOLOGY REPORT (SQ) ---
EXAM DESCRIPTION: INJECT/ASPIR HIP/SHLDR/KNEE; FLUORO/NEEDLE PLACEMENT COMPLETED DATE/TIME: 02/20/2018 3:06 pm REASON FOR STUDY: Hip pain; HIP PAIN COMPARISON: None. FLUOROSCOPY TIME: 15 seconds. 1 images saved to PACS. LIMITATIONS: None. PROCEDURE: SITE OF INJECTION: Right hip. LOCALIZING CONTRAST TYPE AND DOSE: None given due to contrast allergy. MEDICATION TYPE AND DOSE: 3 mL bupivacaine. 2 mL Celestone (total dose 12 mg). Using local anesthesia and sterile technique with fluoroscopic guidance, the needle was advanced into the joint. Iodinated contrast was injected to verify intraarticular placement. This was followed by therapeutic injection of the indicated medications. The needle was removed. There were no immediat e complications. IMPRESSION: THERAPEUTIC INJECTION OF THE RIGHT HIP JOINT ABOVE. COMMENT: Patient medication list reviewed: Yes- Quality ID# [id number]:Eligible professional attests to doc umenting in the medical record they obtained, updated, or reviewed the patient's current medications. . Quality ID 145: Final reports for procedures using fluoroscopy that document radiation exposure jhony domingo, or exposure time and number of fluorographic images (if radiation exposure indices are not avail able) TECHNICAL DOCUMENTATION: JOB ID: [id number] [employer]- All Rights Reserved Reading location - IP/workstation name: [email or web address]
--- NOTE | 2018-02-20 15:31 | RADIOLOGY REPORT (SQ) ---
EXAM DESCRIPTION: INJECT/ASPIR HIP/SHLDR/KNEE; FLUORO/NEEDLE PLACEMENT COMPLETED DATE/TIME: 02/20/2018 3:06 pm REASON FOR STUDY: Hip pain; HIP PAIN COMPARISON: None. FLUOROSCOPY TIME: 15 seconds. 1 images saved to PACS. LIMITATIONS: None. PROCEDURE: SITE OF INJECTION: Right hip. LOCALIZING CONTRAST TYPE AND DOSE: None given due to contrast allergy. MEDICATION TYPE AND DOSE: 3 mL bupivacaine. 2 mL Celestone (total dose 12 mg). Using local anesthesia and sterile technique with fluoroscopic guidance, the needle was advanced into the joint. Iodinated contrast was injected to verify intraarticular placement. This was followed by therapeutic injection of the indicated medications. The needle was removed. There were no immediat e complications. IMPRESSION: THERAPEUTIC INJECTION OF THE RIGHT HIP JOINT ABOVE. COMMENT: Patient medication list reviewed: Yes- Quality ID# [id number]:Eligible professional attests to doc umenting in the medical record they obtained, updated, or reviewed the patient's current medications. . Quality ID 145: Final reports for procedures using fluoroscopy that document radiation exposure jhony domingo, or exposure time and number of fluorographic images (if radiation exposure indices are not avail able) TECHNICAL DOCUMENTATION: JOB ID: [id number] [employer]- All Rights Reserved Reading location - IP/workstation name: [email or web address]
[2018-02-20] MEDS: ASPIRIN 81 MG TABLET, CHEWABLE PO SCH (15:55)
[2018-02-20] MEDS: CLOPIDOGREL BISULFATE 75 MG TABLET PO SCH (15:56)
[2018-02-20] MEDS: ATORVASTATIN CALCIUM 10 MG TABLET PO SCH (21:20)
--- NOTE | 2018-02-20 21:33 | PDOC PROGRESS REPORT ---
Subjective Progress Note for:: 02/20/18 Subjective:: Patient seems to be doing better with gradual improvement. Pt is denying any chest arm or neck discomfort. Patient denying any PND, orthopnea. Patient denied any sustained palpitations, dizziness, syncope, near syncope. Patient denying any fever chills. Patient denying any other significant discomfort. Patient noted to have significant general debility. Patient was seen this morning. She was noted to be stable. Patient could not complete stress test but noted to be asymptomatic without the chest pain. Therefore was cleared for orthopedic joint injection sessions. Please see minute from yesterday. Patient is maintaining sinus rhythm. Review of systems: Rest review of systems negative. Medications: Medications have been reviewed. Reason For Visit: NON ST IN Physical Exam Vital Signs: Temp Pulse Resp BP Pulse Ox 98.1 F 65 20 108/56 L 100 02/20/18 19:38 02/20/18 19:38 02/20/18 19:38 02/20/18 19:38 02/20/18 19:38 Intake & Output 02/19/18 02/20/18 02/21/18 06:59 06:59 06:59 Intake Total 414 1282 668 Output Total 110 600 Balance 414 1172 68 Weight 72.1 kg 74.3 kg Exam: GEN: NAD, patient alert oriented x3. Appearance and grooming WNL HEENT : Eyes: HAROON, Ears: No significant abnormalities, Nose: No significant abnormalities. normocephalic atraumatic. Flat midface (-), Receding chin (-) ORAL : Mallampati class III, highly arched palate (-) Tonsils: Not enlarged. NECK: no thyromegaly, no masses, trachea is central, JVD is not elevated, carotids are 2+ with bruit (-) RESP: lungs clear to auscultation bilaterally, no rales, wheezes or rhonchi., nonlabored, no use of accessory muscles of respiration CV: NL S1 and S2. 2/6 ejection systolic murmur noted in the aortic area and left sternal border. 1/6 pansystolic murmur noted at the apex. no S3, no S4 noted. No rub noted., gallops, rubs, clicks GI: abd NT to palpation, no masses, bowel sounds present, no guarding or rigidity noted. EXT: no clubbing, (-) cyanosis, edema (-), perpheral pulses diminished (+) MUSC/SKEL: no acute joint swelling noted. Muscle strength is generally intact. NEURO: no tremors. no significant focal neurological deficits are noted., sensation grossly intact, AO x 3 PSYCH: NL mood and affect. judgment and insight noted to be intact.. SKIN: (-) rash, (-)Signs of pruritus, (-) other significant abnormality Results Laboratory Results: 02/20/18 05:00 02/19/18 04:44 02/20/18 02/20/18 05:00 10:25 WBC 5.3 RBC 4.37 Hgb 13.1 Hct 38.9 MCV 89 MCH 30.0 MCHC 33.7 RDW 12.5 Plt Count 261 Urine Color STRAW Urine Appearance CLEAR Urine pH 6.0 Ur Specific [place] 1.004 Urine Protein NEGATIVE Urine Glucose (UA) NEGATIVE Urine Ketones NEGATIVE Urine Blood NEGATIVE Urine Nitrite NEGATIVE Ur Leukocyte Esterase NEGATIVE Urine WBC (Auto) 0 Urine RBC (Auto) 1 02/16/18 02/16/18 02/16/18 18:34 20:02 22:45 Creatine Kinase 122 CK-MB (CK-2) Troponin I 0.275 0.313 02/16/18 02/17/18 02/17/18 22:45 04:43 04:43 Creatine Kinase 122 CK-MB (CK-2) 2.09 1.92 Troponin I 0.358 0.298 02/17/18 02/17/18 10:55 10:55 Creatine Kinase 117 CK-MB (CK-2) 1.67 Troponin I 0.215 EKG Comments: Telemetry shows sinus rhythm, no sustained Tachy arrhythmia Boris arrhythmia's noted. Impressions: Guidance Fluoroscopy 02/20/18 00:00 IMPRESSION: THERAPEUTIC INJECTION OF THE RIGHT HIP JOINT ABOVE. Lung Scan-VQ NM 02/20/18 00:00 IMPRESSION: NORMAL PERFUSION LUNG SCAN. Chest X-Ray 02/20/18 08:41 IMPRESSION: NO ACUTE RADIOGRAPHIC FINDING IN THE CHEST. Hip Aspiration/Injection 02/20/18 12:35 IMPRESSION: THERAPEUTIC INJECTION OF THE RIGHT HIP JOINT ABOVE. Assessment & Plan - Diagnosis (1) Hypertension Qualifiers: Hypertension type: unspecified Qualified Code(s): I10 - Essential (primary) hypertension Is this a current diagnosis for this admission?: Yes (2) Myasthenia gravis Is this a current diagnosis for this admission?: Yes (3) Weakness Is this a current diagnosis for this admission?: Yes (4) Ambulatory dysfunction Is this a current diagnosis for this admission?: Yes (5) Elevated troponin I level Is this a current diagnosis for this admission?: Yes - Notes Notes: Patient has been noted to be very stable from cardiac standpoint. Even though she had troponin I elevation in the NSTEMI range, patient never had any EKG changes not any chest pain. It is therefore unclear as to the cause troponin I elevation. A VQ scan obtained today was noted to be negative. At this point patient stable from cardiac standpoint. However would recommend medical management with aspirin, Plavix for at least one month if not longer, statin, Beta-rashaad and Justin inhibitors/ARB therapy. - Time Time with patient: 15-25 minutes
[2018-02-21] MEDS: PYRIDOSTIGMINE BROMIDE 60 MG TABLET PO SCH ×5 (00:14→23:11)
[2018-02-21] MEDS: LANSOPRAZOLE 15 MG TAB.RAP.DR PO SCH ×2 (05:30→18:30)
[2018-02-21 05:57] LABS: ABSOLUTE LYMPHOCYTES (AUTO) 0.5 10^3/uL (0.5-4.7); ABSOLUTE MONOCYTES (AUTO) 0.1 10^3/uL (0.1-1.4); ABSOLUTE NEUT (AUTO) 5.8 10^3/uL (1.7-8.2); BASOPHILS % (AUTO) 0.4 % (0-2); HEMATOCRIT 37.9 % (36.0-47.0); HEMOGLOBIN 12.7 g/dL (12.0-15.5); LYMPHOCYTES % (AUTO) 8.5 % (13-45); MEAN CORPUSCULAR HEMOGLOBIN 29.9 pg (27.0-33.4); MEAN CORPUSCULAR HGB CONC 33.5 g/dL (32.0-36.0); MEAN CORPUSCULAR VOLUME 89 fl (80-97); MONOCYTES % (AUTO) 0.9 % (3-13); PLATELET COUNT 246 10^3/uL (150-450); RED BLOOD COUNT 4.26 10^6/uL (3.72-5.28); RED CELL DISTRIBUTION WIDTH 12.8 % (11.5-14.0); SEGMENTED NEUTROPHILS % (AUTO) 90.2 % (42-78); TOTAL CELLS COUNTED % (AUTO) 100 %; WHITE BLOOD COUNT 6.5 10^3/uL (4.0-10.5)
[2018-02-21 06:22] LABS: BLOOD UREA NITROGEN 11 mg/dL (7-20); CALCIUM 10.2 mg/dL (8.4-10.2); GLUCOSE 115 mg/dL (75-110); POTASSIUM 4.6 mmol/L (3.6-5.0)
[2018-02-21 06:57] LABS: CARBON DIOXIDE 30 mmol/L (22-30); CHLORIDE 109 mmol/L (98-107); SODIUM 139.8 mmol/L (137-145)
[2018-02-21 06:58] LABS: ANION GAP 1 (5-19)
[2018-02-21] MEDS: CIPROFLOXACIN HCL 500 MG TABLET PO SCH (09:20)
[2018-02-21] MEDS: ASPIRIN 81 MG TABLET, CHEWABLE PO SCH (09:20)
[2018-02-21] MEDS: METOPROLOL TARTRATE 25 MG TABLET PO SCH ×2 (09:20→22:12)
[2018-02-21] MEDS: AMLODIPINE BESYLATE 5 MG TABLET PO SCH (09:21)
[2018-02-21] MEDS: CLOPIDOGREL BISULFATE 75 MG TABLET PO SCH (09:21)
[2018-02-21] MEDS: ENOXAPARIN SODIUM INJ 40 MG/0.4 ML DISP.SYRIN SUBCUT SCH (09:21)
--- NOTE | 2018-02-21 16:45 | PDOC PROGRESS REPORT ---
Subjective Progress Note for:: 02/21/18 Subjective:: Patient was seen by the bedside, she has a history of myasthenia gravis, Reason For Visit: NON ST [place] Physical Exam Vital Signs: Temp Pulse Resp BP Pulse Ox 97.6 F 64 18 138/62 H 100 02/21/18 11:29 02/21/18 14:00 02/21/18 11:29 02/21/18 11:29 02/21/18 11:29 Intake & Output 02/20/18 02/21/18 02/22/18 06:59 06:59 06:59 Intake Total 1282 1268 222 Output Total 110 1400 Balance 1172 -132 222 Weight 74.3 kg 74.9 kg General appearance: PRESENT: no acute distress Eye exam: PRESENT: PERRLA Respiratory exam: PRESENT: clear to auscultation lucy Cardiovascular exam: PRESENT: +S1, +S2 GI/Abdominal exam: PRESENT: soft Neurological exam: PRESENT: alert Results Laboratory Results: 02/21/18 05:16 02/21/18 05:16 02/21/18 02/21/18 05:16 05:16 WBC 6.5 RBC 4.26 Hgb 12.7 Hct 37.9 MCV 89 MCH 29.9 MCHC 33.5 RDW 12.8 Plt Count 246 Seg Neutrophils % 90.2 H Lymphocytes % 8.5 L Monocytes % 0.9 L Eosinophils % 0.0 Basophils % 0.4 Absolute Neutrophils 5.8 Absolute Lymphocytes 0.5 Absolute Monocytes 0.1 Absolute Eosinophils 0.0 Absolute Basophils 0.0 Sodium 139.8 Potassium 4.6 Chloride 109 H Carbon Dioxide 30 Anion Gap 1 L BUN 11 Creatinine 0.74 Est GFR ( Amer) > 60 Est GFR (Non-Af Amer) > 60 Glucose 115 H Calcium 10.2 02/16/18 02/16/18 02/16/18 18:34 20:02 22:45 Creatine Kinase 122 CK-MB (CK-2) Troponin I 0.275 0.313 02/16/18 02/17/18 02/17/18 22:45 04:43 04:43 Creatine Kinase 122 CK-MB (CK-2) 2.09 1.92 Troponin I 0.358 0.298 02/17/18 02/17/18 10:55 10:55 Creatine Kinase 117 CK-MB (CK-2) 1.67 Troponin I 0.215 Impressions: Guidance Fluoroscopy 02/20/18 00:00 IMPRESSION: THERAPEUTIC INJECTION OF THE RIGHT HIP JOINT ABOVE. Lung Scan-VQ NM 02/20/18 00:00 IMPRESSION: NORMAL PERFUSION LUNG SCAN. Chest X-Ray 02/20/18 08:41 IMPRESSION: NO ACUTE RADIOGRAPHIC FINDING IN THE CHEST. Hip Aspiration/Injection 02/20/18 12:35 IMPRESSION: THERAPEUTIC INJECTION OF THE RIGHT HIP JOINT ABOVE. Assessment & Plan - Diagnosis (1) Elevated troponin I level Is this a current diagnosis for this admission?: Yes Plan: She has elevated troponin level, felt not to be due to [place], she has no EKG changes, she was seen by cardiology as well (2) Urinary tract infection Qualifiers: Urinary tract infection type: site unspecified Hematuria presence: without hematuria Qualified Code(s): N39.0 - Urinary tract infection, site not specified Is this a current diagnosis for this admission?: Yes Plan: The urine dipstick was negative, the urine culture grew Proteus but the colony count was 20,000 suggesting this is probably colonization and not a true infection, probably reasonable to DC Jose (3) Myasthenia gravis Is this a current diagnosis for this admission?: Yes Plan: She has myasthenia gravis with generalized weakness
[2018-02-21] MEDS: ATORVASTATIN CALCIUM 10 MG TABLET PO SCH (22:11)
[2018-02-22] MEDS: LANSOPRAZOLE 15 MG TAB.RAP.DR PO SCH ×2 (05:19→18:42)
[2018-02-22] MEDS: PYRIDOSTIGMINE BROMIDE 60 MG TABLET PO SCH ×4 (05:20→23:51)
[2018-02-22 05:57] LABS: BLOOD UREA NITROGEN 22 mg/dL (7-20); CALCIUM 9.7 mg/dL (8.4-10.2); GLUCOSE 95 mg/dL (75-110); POTASSIUM 4.5 mmol/L (3.6-5.0)
[2018-02-22 06:11] LABS: CARBON DIOXIDE 32 mmol/L (22-30); CHLORIDE 109 mmol/L (98-107); SODIUM 139.9 mmol/L (137-145)
[2018-02-22 06:17] LABS: ANION GAP -1 (5-19)
[2018-02-22] MEDS: METOPROLOL TARTRATE 25 MG TABLET PO SCH ×2 (11:16→22:33)
[2018-02-22] MEDS: CLOPIDOGREL BISULFATE 75 MG TABLET PO SCH (11:16)
[2018-02-22] MEDS: ENOXAPARIN SODIUM INJ 40 MG/0.4 ML DISP.SYRIN SUBCUT SCH (11:16)
[2018-02-22] MEDS: ASPIRIN 81 MG TABLET, CHEWABLE PO SCH (11:16)
[2018-02-22] MEDS: AMLODIPINE BESYLATE 5 MG TABLET PO SCH (11:17)
--- NOTE | 2018-02-22 14:41 | PDOC PROGRESS REPORT ---
Subjective Progress Note for:: 02/22/18 Subjective:: Patient was seen by the bedside, she has a history of myasthenia gravis, she has no new complaints Reason For Visit: NON ST [place] Physical Exam Vital Signs: Temp Pulse Resp BP Pulse Ox 97.9 F 62 16 116/56 L 100 02/22/18 12:06 02/22/18 12:06 02/22/18 12:06 02/22/18 12:06 02/22/18 12:06 Intake & Output 02/21/18 02/22/18 02/23/18 06:59 06:59 06:59 Intake Total 1268 1172 382 Output Total 1400 Balance -132 1172 382 Weight 74.9 kg 76.6 kg General appearance: PRESENT: no acute distress Eye exam: PRESENT: PERRLA Respiratory exam: PRESENT: clear to auscultation lucy Cardiovascular exam: PRESENT: +S1, +S2 GI/Abdominal exam: PRESENT: soft Neurological exam: PRESENT: alert Results Laboratory Results: 02/21/18 05:16 02/22/18 05:02 02/22/18 05:02 Sodium 139.9 Potassium 4.5 Chloride 109 H Carbon Dioxide 32 H Anion Gap -1 L BUN 22 H Creatinine 0.94 Est GFR ( Amer) > 60 Est GFR (Non-Af Amer) 59 L Glucose 95 Calcium 9.7 02/16/18 02/16/18 02/16/18 18:34 20:02 22:45 Creatine Kinase 122 CK-MB (CK-2) Troponin I 0.275 0.313 02/16/18 02/17/18 02/17/18 22:45 04:43 04:43 Creatine Kinase 122 CK-MB (CK-2) 2.09 1.92 Troponin I 0.358 0.298 02/17/18 02/17/18 10:55 10:55 Creatine Kinase 117 CK-MB (CK-2) 1.67 Troponin I 0.215 Impressions: Guidance Fluoroscopy 02/20/18 00:00 IMPRESSION: THERAPEUTIC INJECTION OF THE RIGHT HIP JOINT ABOVE. Lung Scan-VQ NM 02/20/18 00:00 IMPRESSION: NORMAL PERFUSION LUNG SCAN. Chest X-Ray 02/20/18 08:41 IMPRESSION: NO ACUTE RADIOGRAPHIC FINDING IN THE CHEST. Hip Aspiration/Injection 02/20/18 12:35 IMPRESSION: THERAPEUTIC INJECTION OF THE RIGHT HIP JOINT ABOVE. Assessment & Plan - Diagnosis (1) Elevated troponin I level Is this a current diagnosis for this admission?: Yes Plan: She has elevated troponin level, felt not to be due to [place], she has no EKG changes, she was seen by cardiology as well (2) Urinary tract infection Qualifiers: Urinary tract infection type: site unspecified Hematuria presence: without hematuria Qualified Code(s): N39.0 - Urinary tract infection, site not specified Is this a current diagnosis for this admission?: Yes Plan: The urine dipstick was negative, the urine culture grew Proteus but the colony count was 20,000 suggesting this is probably colonization and not a true infection, probably reasonable to DC Jose (3) Myasthenia gravis Is this a current diagnosis for this admission?: Yes Plan: She has myasthenia gravis with generalized weakness
[2018-02-22] MEDS: ATORVASTATIN CALCIUM 10 MG TABLET PO SCH (22:33)
[2018-02-23 04:53] LABS: HEMATOCRIT 36.1 % (36.0-47.0); HEMOGLOBIN 12.1 g/dL (12.0-15.5); MEAN CORPUSCULAR HEMOGLOBIN 29.9 pg (27.0-33.4); MEAN CORPUSCULAR HGB CONC 33.5 g/dL (32.0-36.0); MEAN CORPUSCULAR VOLUME 89 fl (80-97); PLATELET COUNT 230 10^3/uL (150-450); RED BLOOD COUNT 4.05 10^6/uL (3.72-5.28); RED CELL DISTRIBUTION WIDTH 12.9 % (11.5-14.0); WHITE BLOOD COUNT 7.1 10^3/uL (4.0-10.5)
[2018-02-23 05:24] LABS: BLOOD UREA NITROGEN 17 mg/dL (7-20); CALCIUM 9.7 mg/dL (8.4-10.2); GLUCOSE 84 mg/dL (75-110); POTASSIUM 4.3 mmol/L (3.6-5.0)
[2018-02-23 05:36] LABS: CARBON DIOXIDE 31 mmol/L (22-30); CHLORIDE 112 mmol/L (98-107); SODIUM 142.6 mmol/L (137-145)
[2018-02-23] MEDS: LANSOPRAZOLE 15 MG TAB.RAP.DR PO SCH ×2 (05:46→17:13)
[2018-02-23] MEDS: PYRIDOSTIGMINE BROMIDE 60 MG TABLET PO SCH ×3 (05:46→17:27)
[2018-02-23 05:47] LABS: ANION GAP 0 (5-19)
[2018-02-23] MEDS: AMLODIPINE BESYLATE 5 MG TABLET PO SCH (09:39)
[2018-02-23] MEDS: ASPIRIN 81 MG TABLET, CHEWABLE PO SCH (09:39)
[2018-02-23] MEDS: METOPROLOL TARTRATE 25 MG TABLET PO SCH (09:40)
[2018-02-23] MEDS: ENOXAPARIN SODIUM INJ 40 MG/0.4 ML DISP.SYRIN SUBCUT SCH (09:40)
[2018-02-23] MEDS: CLOPIDOGREL BISULFATE 75 MG TABLET PO SCH (09:40)
[2018-02-23 13:24] VITALS: BP 122/44
--- NOTE | 2018-02-23 13:27 | PDOC PROGRESS REPORT ---
Subjective Progress Note for:: 02/23/18 Subjective:: Patient's try to get the stress test yesterday but unable to get flat and unable to do the stress test According to the cardiology patient's echocardiogram is all stable but suggest continues to current medications with the Plavix for the next 1 month Patient have a still sometimes short of breath and discussed with the patient and the son and agreed to get the VQ scan and a chest x-ray today is all negative will DC the Lovenox Patients pretty much at this point stable per the cardiology for the injections in the hip Patient at this point will decided to put on the rehab because of the multiple multiple comorbidity Reason For Visit: NON ST [place] Physical Exam Vital Signs: Temp Pulse Resp BP Pulse Ox 97.9 F 61 16 122/44 L 100 02/23/18 11:31 02/23/18 11:31 02/23/18 11:31 02/23/18 11:31 02/23/18 11:31 Intake & Output 02/22/18 02/23/18 02/24/18 06:59 06:59 06:59 Intake Total 1172 1091 1182 Output Total 1200 Balance 1172 -109 1182 Weight 76.6 kg 76.6 kg General appearance: PRESENT: no acute distress, well-developed, well-nourished Head exam: PRESENT: atraumatic, normocephalic Eye exam: PRESENT: conjunctiva pink, EOMI, PERRLA. ABSENT: scleral icterus Ear exam: PRESENT: normal external ear exam Mouth exam: PRESENT: moist, tongue midline Neck exam: PRESENT: full ROM. ABSENT: carotid bruit, JVD, lymphadenopathy, thyromegaly Respiratory exam: PRESENT: clear to auscultation lucy Cardiovascular exam: PRESENT: RRR. ABSENT: diastolic murmur, rubs, systolic murmur Pulses: PRESENT: normal dorsalis pedis pul, +2 pedal pulses bilateral Vascular exam: PRESENT: normal capillary refill GI/Abdominal exam: PRESENT: normal bowel sounds, soft. ABSENT: distended, guarding, mass, organolmegaly, rebound, tenderness Rectal exam: PRESENT: deferred Musculoskeletal exam: PRESENT: ambulatory Neurological exam: PRESENT: alert, awake, oriented to person, oriented to place, oriented to time, oriented to situation, CN II-XII grossly intact. ABSENT: motor sensory deficit Psychiatric exam: PRESENT: appropriate affect, normal mood. ABSENT: homicidal ideation, suicidal ideation Skin exam: PRESENT: dry, intact, warm. ABSENT: cyanosis, rash Results Laboratory Results: 02/23/18 04:30 02/23/18 04:30 02/23/18 02/23/18 04:30 04:30 WBC 7.1 RBC 4.05 Hgb 12.1 Hct 36.1 MCV 89 MCH 29.9 MCHC 33.5 RDW 12.9 Plt Count 230 Sodium 142.6 Potassium 4.3 Chloride 112 H Carbon Dioxide 31 H Anion Gap 0 L BUN 17 Creatinine 0.86 Est GFR ( Amer) > 60 Est GFR (Non-Af Amer) > 60 Glucose 84 Calcium 9.7 02/16/18 02/16/18 02/16/18 18:34 20:02 22:45 Creatine Kinase 122 CK-MB (CK-2) Troponin I 0.275 0.313 02/16/18 02/17/18 02/17/18 22:45 04:43 04:43 Creatine Kinase 122 CK-MB (CK-2) 2.09 1.92 Troponin I 0.358 0.298 02/17/18 02/17/18 10:55 10:55 Creatine Kinase 117 CK-MB (CK-2) 1.67 Troponin I 0.215 Impressions: Guidance Fluoroscopy 02/20/18 00:00 IMPRESSION: THERAPEUTIC INJECTION OF THE RIGHT HIP JOINT ABOVE. Lung Scan-VQ NM 02/20/18 00:00 IMPRESSION: NORMAL PERFUSION LUNG SCAN. Chest X-Ray 02/20/18 08:41 IMPRESSION: NO ACUTE RADIOGRAPHIC FINDING IN THE CHEST. Hip Aspiration/Injection 02/20/18 12:35 IMPRESSION: THERAPEUTIC INJECTION OF THE RIGHT HIP JOINT ABOVE. Assessment & Plan - Diagnosis (1) NSTEMI (non-ST elevated myocardial infarction) Is this a current diagnosis for this admission?: Yes Plan: Stress echocardiogram is all stable according to the cardiology unclear at this point the etiology about elevated troponin (2) Hypertension Qualifiers: Hypertension type: unspecified Qualified Code(s): I10 - Essential (primary) hypertension Is this a current diagnosis for this admission?: Yes Plan: to current medications (3) Myasthenia gravis Is this a current diagnosis for this admission?: Yes (4) Weakness Is this a current diagnosis for this admission?: Yes Plan: Get the physical therapy evaluations (5) SI joint arthritis Is this a current diagnosis for this admission?: Yes Plan: Cardiology patient should be okay to get the injection on Friday (6) Shortness of breath Is this a current diagnosis for this admission?: Yes Plan: Will get the VQ scan today and the chest x-ray (7) Ambulatory dysfunction Is this a current diagnosis for this admission?: Yes - Time Time Spent with patient: 15-24 minutes Medications reviewed and adjusted accordingly: Yes Anticipated discharge: SNF Within: when bed available - Plan Summary Plan Summary: Continues to current medication
--- NOTE | 2018-02-23 14:14 | PDOC TRANSFER SUMMARY ---
General - Admit/Disc Date/PCP Admission Date/Primary Care Provider: 02/16/18 22:08 JJ HUGHES MD Discharge Date: 02/23/18 - Discharge Diagnosis (1) NSTEMI (non-ST elevated myocardial infarction) Is this a current diagnosis for this admission?: Yes Summary: With elevated troponin is not sure per cardiology patient's echocardiogram is all stable no EKG changes no chest pain follow outpatients cardiology for further evaluation (2) Hypertension Is this a current diagnosis for this admission?: Yes Summary: Currently all stable (3) Myasthenia gravis Is this a current diagnosis for this admission?: Yes Summary: Patients need to see the neuro-driver's license reviewing officer in the [place] (4) Weakness Is this a current diagnosis for this admission?: Yes Summary: At the physical therapy evaluations (5) SI joint arthritis Is this a current diagnosis for this admission?: Yes Summary: PRN pain medications (6) Shortness of breath Is this a current diagnosis for this admission?: Yes Summary: Patient's VQ scan is negative Chest x-ray is all negative Patient echocardiogram is all stable Patients need a 3 L nasal cannula and further respiratory evaluation as an outpatient (7) Ambulatory dysfunction Is this a current diagnosis for this admission?: Yes Summary: Sickle therapy evaluations - Additional Information Resuscitation Status: Full Code Discharge Diet: As Tolerated, Cardiac Discharge Activity: Activity As Tolerated Prescriptions: Aspirin [Aspirin 81 mg Chewable Tablet] 81 mg PO DAILY #30 tab.chew Clopidogrel Bisulfate [Plavix 75 mg Tablet] 75 mg PO DAILY #30 tablet Metoprolol Tartrate [Lopressor 25 mg Tablet] 12.5 mg PO Q12 #60 tablet Home Medications: Amlodipine Besylate [Norvasc 5 mg Tablet] 5 mg PO DAILY 02/17/18 Pyridostigmine Sutton [Mestinon 60 mg Tablet] 60 mg PO Q6 02/17/18 Aspirin [Aspirin 81 mg Chewable Tablet] 81 mg PO DAILY #30 tab.chew 02/23/18 Clopidogrel Bisulfate [Plavix 75 mg Tablet] 75 mg PO DAILY #30 tablet 02/23/18 Metoprolol Tartrate [Lopressor 25 mg Tablet] 12.5 mg PO Q12 #60 tablet 02/23/18 History of Present Illness Admission Date/PCP: 02/16/18 22:08 JJ HUGHES MD History of Present Illness: JULIANN OROZCO is a 67 year old female This 67-year-old female with a significant history of the myasthenia gravis severe osteoarthritis hypertension's hyperlipidemia came to the office yesterday for just the wheelchair with prescriptions no complaints went to the home but feeling more weak unable to climb the stair and patient is brought to the emergency department where initial workup was all stable except patient's troponin was elevated Patient's denied any chest pain patient is probably criteria for non-ST SD and patient decided to admit per discussed with the cardiology Dr. Ram When I saw the patient's denied any chest pain but patient is complaining of some short of breath when this incident happened Patient is currently denied any symptoms The patient has usual significant weakness in the lower extremity Patient has severe osteoarthritis in the bilateral hip currently see a Dr. 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 to go and see the driver's license reviewing officer for the myasthenia gravis was referred to the [facility] Hospital Course: This is a 67-year-old female presenting the emergency department with generalized weakness chest pain no other symptoms patient EKG was all stable was patient's troponin was elevated Patient seen by the cardiology not sure about non-ST SD when the patient does not have any EKG changes no chest pain Patient's VQ scan was all negative Patient's chest x-ray is all negative Patient's otherwise remained stable Patient underwent further steroid injections in the hip joint per orthopedic surgery Patient's other than that ongoing weakness with the ongoing disability to move much at this point patient is discharged to the rehab facilities Patient also have ongoing myasthenia gravis seen by the neurologist and driver's license reviewing officer and referred to the neuro driver's license reviewing officer in [place] Physical Exam Vital Signs: Temp Pulse Resp BP Pulse Ox 97.9 F 61 16 122/44 L 100 02/23/18 11:31 02/23/18 11:31 02/23/18 11:31 02/23/18 11:31 02/23/18 11:31 Intake & Output 02/22/18 02/23/18 02/24/18 06:59 06:59 06:59 Intake Total 1172 1091 1182 Output Total 1200 Balance 1172 -109 1182 Weight 76.6 kg 76.6 kg General appearance: PRESENT: no acute distress, well-developed, well-nourished Head exam: PRESENT: atraumatic, normocephalic Eye exam: PRESENT: conjunctiva pink, EOMI, PERRLA. ABSENT: scleral icterus Ear exam: PRESENT: normal external ear exam Mouth exam: PRESENT: moist, tongue midline Neck exam: ABSENT: carotid bruit, JVD, lymphadenopathy, thyromegaly Respiratory exam: PRESENT: clear to auscultation lucy. ABSENT: rales, rhonchi, wheezes Cardiovascular exam: PRESENT: RRR. ABSENT: diastolic murmur, rubs, systolic murmur Pulses: PRESENT: normal dorsalis pedis pul Vascular exam: PRESENT: normal capillary refill GI/Abdominal exam: PRESENT: normal bowel sounds, soft. ABSENT: distended, guarding, mass, organolmegaly, rebound, tenderness Rectal exam: PRESENT: deferred Extremities exam: PRESENT: full ROM. ABSENT: calf tenderness, clubbing, pedal edema Neurological exam: PRESENT: alert, awake, oriented to person, oriented to place, oriented to time, oriented to situation. ABSENT: motor sensory deficit Psychiatric exam: PRESENT: appropriate affect, normal mood. ABSENT: homicidal ideation, suicidal ideation Skin exam: PRESENT: dry, intact, warm. ABSENT: cyanosis, rash Results Laboratory Results: 02/23/18 04:30 02/23/18 04:30 02/23/18 02/23/18 04:30 04:30 WBC 7.1 RBC 4.05 Hgb 12.1 Hct 36.1 MCV 89 MCH 29.9 MCHC 33.5 RDW 12.9 Plt Count 230 Sodium 142.6 Potassium 4.3 Chloride 112 H Carbon Dioxide 31 H Anion Gap 0 L BUN 17 Creatinine 0.86 Est GFR ( Amer) > 60 Est GFR (Non-Af Amer) > 60 Glucose 84 Calcium 9.7 02/16/18 02/16/18 02/16/18 18:34 20:02 22:45 Creatine Kinase 122 CK-MB (CK-2) Troponin I 0.275 0.313 02/16/18 02/17/18 02/17/18 22:45 04:43 04:43 Creatine Kinase 122 CK-MB (CK-2) 2.09 1.92 Troponin I 0.358 0.298 02/17/18 02/17/18 10:55 10:55 Creatine Kinase 117 CK-MB (CK-2) 1.67 Troponin I 0.215 Impressions: Guidance Fluoroscopy 02/20/18 00:00 IMPRESSION: THERAPEUTIC INJECTION OF THE RIGHT HIP JOINT ABOVE. Lung Scan-VQ NM 02/20/18 00:00 IMPRESSION: NORMAL PERFUSION LUNG SCAN. Chest X-Ray 02/20/18 08:41 IMPRESSION: NO ACUTE RADIOGRAPHIC FINDING IN THE CHEST. Hip Aspiration/Injection 02/20/18 12:35 IMPRESSION: THERAPEUTIC INJECTION OF THE RIGHT HIP JOINT ABOVE. Transfer Plan - Time Spent with Patient Time spent with patient: Greater than 30 Minutes Qualifiers - * PATIENT BEING DISCHARGED WITH ANY OF THE FOLLOWING DIAGNOSIS: No VTE patient discharged on overlapping Therapy?: Yes Plan Time Spent: Greater than 30 Minutes - Sent to the rehab facility Fall precautions Referral outpatients pulmonary for further evaluations Follow cardiology Dr. Ram
== END 2018-02-23 19:56 | DRG 282 ==
LOC: ER 16:50 → EH 22:08 → 3W 02-17 01:13
PROVIDERS: ADMIT Family Medicine; ATTEND Family Medicine
PROC: 3E0U33Z Introduction of Anti-inflammatory into Joints, Percutaneous Approach (ICD-10-PCS; principal; 2018-02-20)
PROC: 3E0U3BZ Introduction of Anesthetic Agent into Joints, Percutaneous Approach (ICD-10-PCS; 2018-02-20)
DX: I21.4 Non-ST elevation (NSTEMI) myocardial infarction (principal); I10 Essential (primary) hypertension; G70.00 Myasthenia gravis without (acute) exacerbation; M46.98 Unspecified inflammatory spondylopathy, sacral and sacrococcygeal region; E78.5 Hyperlipidemia, unspecified; M17.0 Bilateral primary osteoarthritis of knee; M16.11 Unilateral primary osteoarthritis, right hip; Z79.899 Other long term (current) drug therapy; Z91.030 Bee allergy status; Z88.0 Allergy status to penicillin
CPT/HCPCS: 20610; 36415; 71046; 77002; 78580; 80048; 80053; 80061; 80076; 81001; 82550; 82553; 82962; 83735; 84484; 85025; 85027; 85730; 87086; 87088; 87186; 93005; 93010; 93306; 96372; 99291; A9540; J0702; J1650; J3490; Q9969

== ENCOUNTER 2018-11-12 09:39 | Emergency (ER) | payer MEDICARE, BC ==
[2018-11-12 10:23] LABS: ABSOLUTE BASOPHILS # (AUTO) 0.1 10^3/uL (0.0-0.2); ABSOLUTE EOSINOPHILS # (AUTO) 0.1 10^3/uL (0.0-0.6); ABSOLUTE LYMPHOCYTES (AUTO) 1.3 10^3/uL (0.5-4.7); ABSOLUTE MONOCYTES (AUTO) 0.4 10^3/uL (0.1-1.4); ABSOLUTE NEUT (AUTO) 3.3 10^3/uL (1.7-8.2); BASOPHILS % (AUTO) 1.1 % (0-2); EOSINOPHILS % (AUTO) 1.7 % (0-6); HEMATOCRIT 42.6 % (36.0-47.0); HEMOGLOBIN 14.3 g/dL (12.0-15.5); LYMPHOCYTES % (AUTO) 25.3 % (13-45); MEAN CORPUSCULAR HEMOGLOBIN 30.2 pg (27.0-33.4); MEAN CORPUSCULAR HGB CONC 33.5 g/dL (32.0-36.0); MEAN CORPUSCULAR VOLUME 90 fl (80-97); MONOCYTES % (AUTO) 7.2 % (3-13); PLATELET COUNT 275 10^3/uL (150-450); RED BLOOD COUNT 4.71 10^6/uL (3.72-5.28); RED CELL DISTRIBUTION WIDTH 13.2 % (11.5-14.0); SEGMENTED NEUTROPHILS % (AUTO) 64.7 % (42-78); TOTAL CELLS COUNTED % (AUTO) 100 %
[2018-11-12 10:33] LABS: APPEARANCE,URINE CLEAR; BILIRUBIN,URINE NEGATIVE (NEGATIVE); COLOR,URINE STRAW; GLUCOSE, URINE NEGATIVE (NEGATIVE); KETONES,URINE NEGATIVE (NEGATIVE); LEUKOCYTE ESTERASE,URINE NEGATIVE (NEGATIVE); NITRITE,URINE NEGATIVE (NEGATIVE); PROTEIN,URINE NEGATIVE (NEGATIVE); URINE SPECIFIC GRAVITY 1.003; UROBILINOGEN,URINE NEGATIVE mg/dL (<2.0)
[2018-11-12 10:48] LABS: ALBUMIN 4.3 g/dL (3.5-5.0); ALKALINE PHOSPHATASE 98 U/L (38-126); ASPARTATE AMINO TRANSFERASE 25 U/L (14-36); BILIRUBIN,DIRECT 0.1 mg/dL (0.0-0.4); BILIRUBIN,TOTAL 0.7 mg/dL (0.2-1.3); BLOOD UREA NITROGEN 9 mg/dL (7-20); CALCIUM 10.4 mg/dL (8.4-10.2); CHLORIDE 107 mmol/L (98-107); GLUCOSE 97 mg/dL (75-110); POTASSIUM 4.3 mmol/L (3.6-5.0); TOTAL PROTEIN 7.7 g/dL (6.3-8.2)
[2018-11-12 10:53] LABS: CARBON DIOXIDE 31 mmol/L (22-30)
[2018-11-12 10:54] LABS: ANION GAP 2 (5-19)
--- NOTE | 2018-11-12 12:35 | RADIOLOGY REPORT (SQ) ---
EXAM DESCRIPTION: KNEE RIGHT 2 VIEWS COMPLETED DATE/TIME: 11/12/2018 12:19 pm REASON FOR STUDY: leg gave out COMPARISON: None. NUMBER OF VIEWS: Two views. TECHNIQUE: AP and lateral radiographic images acquired of the right knee. LIMITATIONS: None. FINDINGS: MINERALIZATION: Normal. BONES: No acute fracture or dislocation. No worrisome bone lesions. JOINT: There is narrowing of the medial joint space with small marginal osteophytes. Small posterior patellar osteophytes are present. There is no joint effusion. SOFT TISSUES: No soft tissue swelling. No radio-opaque foreign body. OTHER: No other significant finding. IMPRESSION: Degenerative joint disease. TECHNICAL DOCUMENTATION: JOB ID: [id number] [employer]- All Rights Reserved Reading location - IP/workstation name: [email or web address]
--- NOTE | 2018-11-12 12:36 | RADIOLOGY REPORT (SQ) ---
EXAM DESCRIPTION: HIP RIGHT AP/LATERAL COMPLETED DATE/TIME: 11/12/2018 12:19 pm REASON FOR STUDY: leg gave out COMPARISON: 10/19/2017 NUMBER OF VIEWS: Two views. TECHNIQUE: AP pelvis and additional frog-leg view of the right hip. LIMITATIONS: None. FINDINGS: MINERALIZATION: Normal. RIGHT HIP: Marked joint space narrowing with subchondral cysts. Marginal osteophytes are present. LEFT HIP: Joint space narrowing with subchondral cysts. PUBIS AND ISCHIUM: No fracture. PELVIS: No fracture. SACRUM: There is sclerosis at the inferior aspect of each SI joint. LOWER LUMBAR SPINE: No fracture or dislocation. No worrisome bone lesions. No significant disc disea se. SOFT TISSUES: No findings. OTHER: No other significant finding. IMPRESSION: Degenerative joint disease in the hips. No acute finding. Sacroiliitis. TECHNICAL DOCUMENTATION: JOB ID: [id number] [employer]- All Rights Reserved Reading location - IP/workstation name: [email or web address]
--- NOTE | 2018-11-12 15:41 | ER Document Report ---
ED General - General Chief Complaint: Weakness Stated Complaint: WEAKNESS Time Seen by Provider: 11/12/18 10:20 Primary Care Provider: JJ HUGHES MD [Primary Care Provider] - Follow up as needed Notes: 68-year-old female presents emergency department complaining of sudden onset of weakness in her right leg as she was walking down steps, when you question her further she states that her right leg suddenly gave out on her but it is now back to normal. Patient states that is given out on her a total of 3 times, and has done it twice before and always normalize after gives out. Patient already has to walk with walker. Notes that she has chronic disease in her right hip and right knee. Patient last had a shot in her right hip by Dr. Grimm back in February. Patient denies any new weakness aside from her leg giving out on her, denies any persistent new weakness at this time, denies any numbness or tingling. Does admit a history of myasthenia gravis and states that she was supposed to have an appointment with her neurologist today but because her leg came out she came to the emergency department instead. Patient does complain of progressive weakness when she talks, occasional difficulty swallowing and increasing drooping of the eyelids. TRAVEL OUTSIDE OF THE [place] IN LAST 30 DAYS: No - Related Data Allergies/Adverse Reactions: egg Allergy (Unknown, Verified 10/21/17 10:41) bee pollen [Bee Pollen] Allergy (Verified 08/22/17 07:52) Penicillins Allergy (Verified 10/21/17 10:41) Iodinated Contrast Media Adverse Reaction (Verified 02/18/18 07:06) Abnormal behavior Past Medical History - General Information source: Patient - Social History Smoking Status: Never Smoker Chew tobacco use (# tins/day): No Frequency of alcohol use: None Drug Abuse: None Family History: Reviewed & Not Pertinent Patient has suicidal ideation: No Patient has homicidal ideation: No - Past Medical History Cardiac Medical History: Reports: Hx Hypertension Renal/ Medical History: Denies: Hx Peritoneal Dialysis Musculoskeletal Medical History: Reports Hx Arthritis - osteoarthritis knees bilaterally Review of Systems - Review of Systems Constitutional: No symptoms reported EENT: See HPI - Ptosis of the lids. Cardiovascular: No symptoms reported Respiratory: See HPI Gastrointestinal: No symptoms reported Musculoskeletal: See HPI Neurological/Psychological: See HPI -: Yes All other systems reviewed and negative Physical Exam - Vital signs Vitals: Pulse Resp BP Pulse Ox 73 20 152/93 H 100 11/12/18 10:00 11/12/18 10:00 11/12/18 10:00 11/12/18 10:00 Interpretation: Hypertensive - Notes Notes: GENERAL: Alert, interacts well. No acute distress. Hard of hearing HEAD: Normocephalic, atraumatic EYES: Pupils equal, round and reactive to light, extraocular movements intact. Ptosis of the bilateral upper lids. ENT: Oral mucosa moist, tongue midline. NECK: Full range of motion, supple, trachea midline. LUNGS: Clear to auscultation bilaterally, no wheezes, rales or rhonchi, no respiratory distress. HEART: Regular rate and rhythm, no murmurs, gallops, rubs. ABDOMEN: Soft, nontender, nondistended, bowel sounds present in all 4 quadrants. EXTREMITIES: Moves all 4 extremities spontaneously, 4 out of 5 muscle strength in the right leg, 5 out of 5 muscle strength in the left leg, 5 out of 5 muscle strength in bilateral upper extremities, no edema, radial and dorsalis pedis pulses 2/4 bilaterally. No cyanosis. NEUROLOGICAL: Alert and oriented x3, normal speech, no facial droop, biceps and patellar DTRs 2+ bilaterally. PSYCH: Normal mood, normal affect. SKIN: Warm, Dry, normal turgor. Course - Re-evaluation Re-evalutation: 11/12/18 15:44 CBC unremarkable, CMP grossly unremarkable, calcium mildly elevated at 10.4, urinalysis unremarkable, hip and knee x-ray on the right show severe degenerative disease as well as mild sacroiliitis. EKG is nonischemic. I see no evidence of a stroke on this patient. Patient was able to be ambulated with her walker and is now walking at her baseline. Her weakness is not changed from her baseline. Discussed with patient and family members that if her knee is intermittently giving out on her and she has severe arthritis that she will need to speak with an orthopedic surgeon about why her knees giving out and potential risks and benefits of the various surgeries that might fix this including knee replacement. She will however have to discuss with an orthopedic surgeon whether or not any replacement would even be indicated. They understand that we do not emergently replaced knees or hips even if her leg giving out on her is interfering with her lifestyle. Patient is discharged home. Also recommended with her symptoms of increasing fatigue when talking, occasional difficulty swallowing and increasing drooping of the lids that she should make a follow-up appointment with her neurologist as soon as possible to discuss whether or not her Mestinon needs to be adjusted. - Vital Signs Vital signs: Temp Pulse Resp BP Pulse Ox 98.0 F 62 19 151/77 H 100 11/12/18 10:02 11/12/18 13:00 11/12/18 13:01 11/12/18 13:00 11/12/18 13:01 - Laboratory Result Diagrams: 11/12/18 09:55 11/12/18 09:55 Laboratory results interpreted by me: 11/12/18 09:55 Carbon Dioxide 31 H Anion Gap 2 L Calcium 10.4 H - EKG Interpretation by Me Additional EKG results interpreted by me: 11/12/18 15:45 EKG shows sinus rhythm at a rate of 69, normal axis, normal intervals, no ST seg ment elevations or depressions, no T wave inversions per my interpretation. Discharge - Discharge Clinical Impression: Ambulatory dysfunction, SI joint arthritis, Unilateral primary osteoarthritis, right hip, Arthritis of right knee, Myasthenia gravis, Right leg weakness Condition: Stable Disposition: HOME, SELF-CARE Additional Instructions: Today did not find any signs of a stroke. We did find severe arthritis of your right hip and right knee. This is possibly what is causing your leg to give out. You need to follow-up with an orthopedic surgeon to further investigate why your right leg is giving out. Until you have followed up with an orthopedic surgeon I do not want you going up and down steps on your own. Please use your walker and stay on a level surface. Please make a follow-up appointment with your neurologist as soon as possible to discuss your symptoms of increasing frequency of difficulty swallowing and increasing frequency of difficulty speaking as well as your worsening drooping of your eyelids. Please return to the emergency department for any new or concerning symptoms. Referrals: JJ HUGHES MD [Primary Care Provider] - Follow up as needed NICOLE GRIMM MD [ACTIVE STAFF] - Follow up as needed
[2018-11-12 20:29] VITALS: BP 135/67
--- NOTE | 2018-11-12 21:48 | EKG REPORT ---
SEVERITY:- NORMAL ECG - SINUS RHYTHM : Confirmed by: Hillary Clayton MD 12-Nov-2018 21:47:55
== END 2018-11-12 20:29 | disposition home or self-care (01) ==
LOC: ER 09:39
DX: M47.898 Other spondylosis, sacral and sacrococcygeal region (principal); M16.11 Unilateral primary osteoarthritis, right hip; M17.11 Unilateral primary osteoarthritis, right knee; G70.00 Myasthenia gravis without (acute) exacerbation; R53.1 Weakness; I10 Essential (primary) hypertension; Z88.0 Allergy status to penicillin; Z91.012 Allergy to eggs
CPT/HCPCS: 36415; 80053; 81001; 85025; 93005; 93010; 99285

== ENCOUNTER 2019-03-16 10:37 | Emergency (ER) | payer MEDICARE, BC ==
[2019-03-16 11:10] VITALS: BP 145/66
--- NOTE | 2019-03-16 11:31 | ER Document Report ---
ED Medical Screen (RME) - General Chief Complaint: Shoulder Pain Stated Complaint: COLLAR BONE PAIN Time Seen by Provider: 03/16/19 11:24 Primary Care Provider: INGA CAMPBELL PA-C [Primary Care Provider] - Follow up as needed Notes: HPI: Difficult to obtain history from the patient. Patient very hard of hearing. Patient complaining of medial collarbone pain and pain into the left shoulder region. Unable to determine if it is pain with movement or just pain. Patient apparently had an appointment with Dr. Gongora today but her family members could not get her down the stairs at the home because she has chronic pain issues and difficulty walking so they called EMS to bring her to the emergency department and canceled her PCP appointment for this issue I have greeted and performed a rapid initial assessment of this patient. A comprehensive ED assessment and evaluation of the patient, analysis of test results and completion of the medical decision making process will be conducted by additional ED providers PHYSICAL EXAMINATION: GENERAL: Well-appearing, well-nourished and in no acute distress. HEAD: Atraumatic, normocephalic. EYES: sclera anicteric, conjunctiva are normal. ENT: Moist mucous membranes. NECK: Normal range of motion CHEST: Mild tenderness and prominence of the medial left clavicle on exam SKIN: Warm, Dry, normal turgor, no rashes or lesions noted. TRAVEL OUTSIDE OF THE [place] IN LAST 30 DAYS: No - Related Data Allergies/Adverse Reactions: egg Allergy (Unknown, Verified 10/21/17 10:41) bee pollen [Bee Pollen] Allergy (Verified 08/22/17 07:52) Penicillins Allergy (Verified 10/21/17 10:41) Iodinated Contrast Media Adverse Reaction (Verified 02/18/18 07:06) Abnormal behavior Past Medical History - Social History Frequency of alcohol use: None Drug Abuse: None - Past Medical History Cardiac Medical History: Reports: Hx Hypertension Renal/ Medical History: Denies: Hx Peritoneal Dialysis Musculoskeltal Medical History: Reports Hx Arthritis - osteoarthritis knees bilaterally Physical Exam - Vital signs Vitals: Temp Pulse Resp BP Pulse Ox 98.2 F 86 18 145/66 H 100 03/16/19 11:03/16/19 11:03/16/19 11:03/16/19 11:03/16/19 11:09 Course - Vital Signs Vital signs: Temp Pulse Resp BP Pulse Ox 98.2 F 86 18 145/66 H 100 03/16/19 11:09 03/16/19 11:09 03/16/19 11:09 03/16/19 11:09 03/16/19 11:09 Doctor's Discharge - Discharge Referrals: INGA CAMPBELL PA-C [Primary Care Provider] - Follow up as needed
--- NOTE | 2019-03-16 12:40 | RADIOLOGY REPORT (SQ) ---
EXAM DESCRIPTION: CHEST 2 VIEWS COMPLETED DATE/TIME: 03/16/2019 12:03 pm REASON FOR STUDY: clavicle pain COMPARISON: 02/20/2018 EXAM PARAMETERS: NUMBER OF VIEWS: two views TECHNIQUE: Digital Frontal and Lateral radiographic views of the chest acquired. RADIATION DOSE: NA LIMITATIONS: none FINDINGS: LUNGS AND PLEURA: No opacities, masses or pneumothorax. No pleural effusion. MEDIASTINUM AND HILAR STRUCTURES: No masses or contour abnormalities. HEART AND VASCULAR STRUCTURES: Heart normal size. No evidence for failure. BONES: No acute findings. HARDWARE: None in the chest. OTHER: No other significant finding. IMPRESSION: NO ACUTE RADIOGRAPHIC FINDING IN THE CHEST. TECHNICAL DOCUMENTATION: JOB ID: [id number] [employer]- All Rights Reserved Reading location - IP/workstation name: [email or web address]
--- NOTE | 2019-03-16 12:40 | RADIOLOGY REPORT (SQ) ---
EXAM DESCRIPTION: CLAVICLE LEFT COMPLETED DATE/TIME: 03/16/2019 12:03 pm REASON FOR STUDY: clavicle pain COMPARISON: None. NUMBER OF VIEWS: Two views. TECHNIQUE: Frontal and angled images were acquired of the left clavicle. LIMITATIONS: None. FINDINGS: MINERALIZATION: Normal. BONES: No acute fracture or dislocation. No worrisome bone lesions. SOFT TISSUES: No obvious swelling or foreign body. OTHER: No other significant finding. IMPRESSION: NEGATIVE STUDY OF THE LEFT CLAVICLE. NO RADIOGRAPHIC EVIDENCE OF ACUTE INJURY. TECHNICAL DOCUMENTATION: JOB ID: [id number] [employer]- All Rights Reserved Reading location - IP/workstation name: [email or web address]
--- NOTE | 2019-03-16 18:04 | ER Document Report ---
Entered by KAREN VELEZ SCRIBE 03/16/19 1420 Acting as scribe for:KAYLA PINEDA MD ED General - General Chief Complaint: Shoulder Pain Stated Complaint: COLLAR BONE PAIN Time Seen by Provider: 03/16/19 11:24 Primary Care Provider: INGA CAMPBELL PA-C [PHYSICIAN TECHNICAL SUPPORT DIRECTOR] - Follow up as needed Information source: Patient Notes: 68 year old female presents to the emergency department via EMS complaining of left shoulder pain that began last month. Patient describes the pain as a soreness. Patient recalls no recent fall or injury. Patient states that she showed her children the bump and they told her to see someone. Patient recalls falling last November and having trouble with stairs since this incident. TRAVEL OUTSIDE OF THE [place] IN LAST 30 DAYS: No - Related Data Allergies/Adverse Reactions: egg Allergy (Unknown, Verified 03/16/19 12:53) bee pollen [Bee Pollen] Allergy (Verified 03/16/19 12:53) Penicillins Allergy (Verified 03/16/19 12:53) Iodinated Contrast Media Adverse Reaction (Verified 03/16/19 12:53) Abnormal behavior Past Medical History - General Information source: Patient - Social History Smoking Status: Unknown if Ever Smoked Frequency of alcohol use: None Drug Abuse: None Family History: None, Reviewed & Not Pertinent Patient has suicidal ideation: No Patient has homicidal ideation: No - Past Medical History Cardiac Medical History: Reports: Hx Hypertension Musculoskeletal Medical History: Reports Hx Arthritis - osteoarthritis knees bilaterally Surgical Hx: Negative Review of Systems - Review of Systems Constitutional: No symptoms reported EENT: No symptoms reported Cardiovascular: No symptoms reported Respiratory: No symptoms reported Gastrointestinal: No symptoms reported Genitourinary: No symptoms reported Female Genitourinary: No symptoms reported Musculoskeletal: Other - Left shoulder pain Skin: No symptoms reported Hematologic/Lymphatic: No symptoms reported Neurological/Psychological: No symptoms reported -: Yes All other systems reviewed and negative Physical Exam - Vital signs Vitals: Temp Pulse Resp BP Pulse Ox 98.2 F 86 18 145/66 H 100 03/16/19 11:09 03/16/19 11:09 03/16/19 11:09 03/16/19 11:09 03/16/19 11:09 - Notes Notes: Physical Exam: General: Alert, appears well. HEENT: Normocephalic. Atraumatic. PERRL. Extraocular movements intact. Oropharynx clear. Hearing Impairment. Neck: Supple. The left medial clavicular joint is somewhat prominent. Respiratory: No respiratory distress. Clear and equal breath sounds bilaterally. Cardiovascular: Regular rate and rhythm. Abdominal: Normal Inspection. Non-tender. No distension. Normal Bowel Sounds. Back: No gross abnormalities. Extremities: Moves all four extremities. Upper extremities: Normal inspection. Normal ROM. Lower extremities: Normal inspection. No edema. Normal ROM. Neurological: Normal cognition. AAOx4. Normal speech. Psychological: Normal affect. Normal Mood. Skin: Warm. Dry. Normal color. Course - Vital Signs Vital signs: Temp Pulse Resp BP Pulse Ox 98.2 F 86 18 145/66 H 100 03/16/19 11:09 03/16/19 11:09 03/16/19 11:09 03/16/19 11:09 03/16/19 11:09 - Diagnostic Test Radiology reviewed: Image reviewed, Reports reviewed Radiology results interpreted by me: 03/16/19 14:44 Chest x-ray does not disclose any acute process. Lungs fully inflated no pneumothorax heart size within normal limits no acute cardiopulmonary process. Left clavicle shows arthritis in the AC joint on the left as well as the sternoclavicular joint. Greatest arthritic degenerative changes are noted on the ends of the clavicle. No acute fracture present. 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 Greatest area of arthritis degenerative changes occur on the head of the clavicle. There is no acute fracture. Lungs fully inflated not showing any signs of pneumothorax. There is arthritis noted in the acromioclavicular joint as well. Also noted arthritis in the shoulder joint as well. Recommend you take Tylenol extra strength as needed for pain. Referrals: INGA CAMPBELL PA-C [PHYSICIAN TECHNICAL SUPPORT DIRECTOR] - Follow up as needed I personally performed the services described in the documentation, reviewed and edited the documentation which was dictated to the scribe in my presence, and it accurately records my words and actions.
== END 2019-03-16 15:15 | disposition home or self-care (01) ==
LOC: ER 10:37
DX: M19.012 Primary osteoarthritis, left shoulder (principal); I10 Essential (primary) hypertension; Z91.012 Allergy to eggs; Z91.030 Bee allergy status; Z88.0 Allergy status to penicillin
CPT/HCPCS: 71046; 99283

== ENCOUNTER 2019-05-04 04:31 | Observation (INO) | payer MEDICARE, BC ==
[2019-05-04 05:19] LABS: ABSOLUTE BASOPHILS # (AUTO) 0.1 10^3/uL (0.0-0.2); ABSOLUTE EOSINOPHILS # (AUTO) 0.1 10^3/uL (0.0-0.6); ABSOLUTE LYMPHOCYTES (AUTO) 1.2 10^3/uL (0.5-4.7); ABSOLUTE MONOCYTES (AUTO) 0.6 10^3/uL (0.1-1.4); BASOPHILS % (AUTO) 0.8 % (0-2); EOSINOPHILS % (AUTO) 1.1 % (0-6); HEMOGLOBIN 13.6 g/dL (12.0-15.5); MEAN CORPUSCULAR HEMOGLOBIN 31.3 pg (27.0-33.4); MEAN CORPUSCULAR VOLUME 90 fl (80-97); MONOCYTES % (AUTO) 7.8 % (3-13); PLATELET COUNT 305 10^3/uL (150-450); RED BLOOD COUNT 4.35 10^6/uL (3.72-5.28); RED CELL DISTRIBUTION WIDTH 12.8 % (11.5-14.0); SEGMENTED NEUTROPHILS % (AUTO) 75.3 % (42-78); TOTAL CELLS COUNTED % (AUTO) 100 %; WHITE BLOOD COUNT 7.9 10^3/uL (4.0-10.5)
[2019-05-04 05:21] LABS: VENOUS BLOOD BASE EXCESS 3.5 mmol/L; VENOUS BLOOD HCO3 30.5 mmol/L (20-32); VENOUS BLOOD PCO2 56.3 mmHg (35-63); VENOUS BLOOD PH 7.35 (7.30-7.42)
[2019-05-04 05:40] LABS: A TYPE INFLUENZA AG NEGATIVE (NEGATIVE); B INFLUENZA AG NEGATIVE (NEGATIVE)
--- NOTE | 2019-05-04 05:44 | ER Document Report ---
ED Medical Screen (RME) - General Chief Complaint: Productive Cough Stated Complaint: WEAKNESS Time Seen by Provider: 05/04/19 04:39 Primary Care Provider: JJ HUGHES MD [Primary Care Provider] - Follow up as needed Mode of Arrival: Medic Information source: Patient Notes: Patient is a 68-year-old female presents the emergency department complaint of weakness and cough. Patient denies any fever or chills. She lives at home and has not traveled. She reports that tonight she got up to get onto her bedside commode when she slipped straight down landing on her butt. She denies striking her head, denies any loss of consciousness. She states that she has had a cough for quite some time now. I have greeted and performed a rapid initial assessment of this patient. A comprehensive ED assessment and evaluation of the patient, analysis of test results and completion of the medical decision making process will be conducted by additional ED providers. I have specifically instructed the patient or family members with the patient to immediately return to any nursing staff should anything change in the patient's condition or with their chief complaint. TRAVEL OUTSIDE OF THE [place] IN LAST 30 DAYS: No - Related Data Allergies/Adverse Reactions: egg Allergy (Unknown, Verified 03/16/19 12:53) bee pollen [Bee Pollen] Allergy (Verified 03/16/19 12:53) Penicillins Allergy (Verified 03/16/19 12:53) Iodinated Contrast Media Adverse Reaction (Verified 03/16/19 12:53) Abnormal behavior Home Medications: Plavix. Metroprolol Past Medical History - Past Medical History Cardiac Medical History: Reports: Hx Hypertension Renal/ Medical History: Denies: Hx Peritoneal Dialysis Musculoskeltal Medical History: Reports Hx Arthritis - osteoarthritis knees bilaterally Physical Exam - Vital signs Vitals: Temp Pulse Resp BP Pulse Ox 98.1 F 109 H 18 160/89 H 100 05/04/19 04:52 05/04/19 04:52 05/04/19 04:52 05/04/19 04:52 05/04/19 04:52 Course - Vital Signs Vital signs: Temp Pulse Resp BP Pulse Ox 98.1 F 109 H 24 H 140/91 H 99 05/04/19 04:53 05/04/19 04:52 05/04/19 06:02 05/04/19 06:02 05/04/19 06:02 - Laboratory Result Diagrams: 05/04/19 04:51 05/04/19 05:38 Laboratory results interpreted by me: 05/04/19 05:38 Anion Gap 4 L BUN 6 L Doctor's Discharge - Discharge Referrals: JJ HUGHES MD [Primary Care Provider] - Follow up as needed
--- NOTE | 2019-05-04 05:46 | RADIOLOGY REPORT (SQ) ---
EXAM: XR Chest, 1 View EXAM DATE/TIME: 05/04/2019 5:27 AM CLINICAL HISTORY: The patient is 68 years old and is Female; cough TECHNIQUE: Frontal view of the chest. COMPARISON: Chest radiograph from 02/20/2018 FINDINGS: LUNGS: Unremarkable. No consolidation. PLEURAL SPACE: Unremarkable. No pneumothorax. HEART: No significant enlargement of the cardiac silhouette. MEDIASTINUM: Unremarkable. BONES/JOINTS: No acute osseous findings. IMPRESSION: No acute findings visualized in the chest.
[2019-05-04 06:13] LABS: APPEARANCE,URINE CLEAR; BILIRUBIN,URINE NEGATIVE (NEGATIVE); COLOR,URINE COLORLESS; GLUCOSE, URINE NEGATIVE (NEGATIVE); KETONES,URINE NEGATIVE (NEGATIVE); PROTEIN,URINE NEGATIVE (NEGATIVE); URINE SPECIFIC GRAVITY 1.003; UROBILINOGEN,URINE NEGATIVE mg/dL (<2.0)
[2019-05-04 06:33] LABS: ALBUMIN 3.9 g/dL (3.5-5.0); ALKALINE PHOSPHATASE 100 U/L (38-126); ASPARTATE AMINO TRANSFERASE 25 U/L (14-36); BILIRUBIN,TOTAL 0.7 mg/dL (0.2-1.3); BLOOD UREA NITROGEN 6 mg/dL (7-20); CARBON DIOXIDE 29 mmol/L (22-30); CHLORIDE 107 mmol/L (98-107); GLUCOSE 105 mg/dL (75-110); POTASSIUM 4.4 mmol/L (3.6-5.0); TOTAL PROTEIN 7.3 g/dL (6.3-8.2)
[2019-05-04 06:40] LABS: ANION GAP 4 (5-19)
[2019-05-04 06:45] LABS: NT PRO BNP 97 pg/mL (<125)
--- NOTE | 2019-05-04 06:45 | ER Document Report ---
ED General - General Chief Complaint: Productive Cough Stated Complaint: WEAKNESS Time Seen by Provider: 05/04/19 04:39 Primary Care Provider: HERO HUGHES MD [Primary Care Provider] - Follow up as needed Mode of Arrival: Medic TRAVEL OUTSIDE OF THE [place] IN LAST 30 DAYS: No - HPI Notes: 68-year-old female followed by Dr. Hero Hughes presenting with complaint of generalized weakness and chronic cough. This lady lives at home and is confined to a wheelchair at baseline. She uses home oxygen PRN. She has a history of myasthenia gravis. She has had a previous non-STEMI about 1 year ago. Patient said that she slipped off her bedside commode this morning and gradually went down to the floor. Family members have difficulty getting her up and decided to bring her to the emergency department. Patient says she is been eating and drinking normally. She denies diarrhea or vomiting. She denies pain anywhere. There was no loss of consciousness. She says she is intermittently short of breath as has been her previous pattern. She has had a nonproductive cough for well over a month. No fever or chills reported. No sputum production. She is a non-smoker. - Related Data Allergies/Adverse Reactions: egg Allergy (Unknown, Verified 03/16/19 12:53) bee pollen [Bee Pollen] Allergy (Verified 03/16/19 12:53) Penicillins Allergy (Verified 03/16/19 12:53) Iodinated Contrast Media Adverse Reaction (Verified 03/16/19 12:53) Abnormal behavior Home Medications: Plavix. Metroprolol Past Medical History - General Information source: Patient - Social History Smoking Status: Never Smoker Family History: None, Reviewed & Not Pertinent Patient has suicidal ideation: No Patient has homicidal ideation: No - Medical History Medical History: Other - Myasthenia gravis - Past Medical History Cardiac Medical History: Reports: Hx Hypertension Renal/ Medical History: Denies: Hx Peritoneal Dialysis Musculoskeletal Medical History: Reports Hx Arthritis - osteoarthritis knees bilaterally Review of Systems - Review of Systems Notes: Constitutional: Negative for fever. HENT: Profound deafness which is baseline. Eyes: Negative for visual changes. Cardiovascular: Negative for chest pain. Respiratory: As per HPI. Gastrointestinal: Negative for abdominal pain, vomiting or diarrhea. Genitourinary: Negative for dysuria. Musculoskeletal: Negative for back pain. Skin: Negative for rash. Neurological: Negative for headaches, focal weakness or numbness. 10 point ROS negative except as marked above and in HPI. Physical Exam - Vital signs Vitals: Temp Pulse Resp BP Pulse Ox 98.1 F 109 H 18 160/89 H 100 05/04/19 04:52 05/04/19 04:52 05/04/19 04:52 05/04/19 04:52 05/04/19 04:52 - Notes Notes: GENERAL: Frail elderly female appearing in no acute distress. SKIN: Good turgor no rashes. HEAD: Normocephalic atraumatic. EYES: PERRLA. EOMI. Conjunctivae and sclerae clear. EARS: CANALS AND TMS CLEAR. NOSE: CLEAR. MOUTH: Moist mucosa. Good dentition. No stridor or edema. No drooling. NECK: Supple. No masses or thyromegaly. No adenopathy. Carotids 2+ without bruits. No JVD. BACK: Symmetrical without tenderness. CHEST: Respirations unlabored. Breath sounds clear and symmetrical. HEART: Mildly tachycardic regular rhythm. No murmur gallop or rub. ABDOMEN: Soft nontender without masses, organomegaly or rebound. Bowel sounds normally active. No bruits. GENITALIA: Deferred. EXTREMITIES: 2+ bilateral pretibial edema. No calf tenderness. Cap refill less than 1.5 seconds. Dorsalis pedis and posterior tibial pulses 3+ and symmetrical. NEUROLOGICAL: GCS 15. Alert and oriented x3. Fluent speech. Cranial nerves II through XII intact. Sensorimotor and cerebellar normal. Normal tone. PSYCHIATRIC: Appropriate affect. Course - Re-evaluation Re-evalutation: 05/04/19 10:13 Chest x-ray shows no infiltrate. Oxygenation normal here. Patient was mildly tachycardic on arrival. She got 500 cc of normal saline IV and her pulse rate normalized. White count is normal. Chemistry profile unremarkable. BNP is normal. Troponin is normal. Lactate normal. Patient taking oral fluids well. Clinically she has a bronchitis which is been going on for several weeks. She appears stable for outpatient management. We do note that she has a history of myasthenia gravis. She does not appear to be in acute respiratory failure at this time. I will place her on some doxycycline on outpatient basis and have her follow-up with Dr. Hughes her primary care provider this week. - Vital Signs Vital signs: Temp Pulse Resp BP Pulse Ox 98.1 F 109 H 15 139/74 H 97 05/04/19 04:53 05/04/19 04:52 05/04/19 10:00 05/04/19 08:01 05/04/19 10:00 - Laboratory Result Diagrams: 05/04/19 04:51 05/04/19 05:38 Laboratory results interpreted by me: 05/04/19 05:38 Anion Gap 4 L BUN 6 L - EKG Interpretation by Me Additional EKG results interpreted by me: 05/04/19 06:46 Twelve-lead EKG from 0519 hrs. reviewed contemporaneously by me demonstrating a sinus tachycardia with a rate of 104. QRS axis normal at 42 degrees. Intervals are normal. There are no acute ST/T wave changes. Discharge - Discharge Clinical Impression: Dehydration, Myasthenia gravis Acute bronchitis Qualifiers: Bronchitis organism: unspecified organism Qualified Code(s): J20.9 - Acute bronchitis, unspecified Condition: Stable Disposition: HOME, SELF-CARE Additional Instructions: Take prescribed medication. Increase oral fluids. See Dr. Hughes later this week for follow-up. Return here as needed for new or worsening symptoms: Pain that is worsening or unimproved Uncontrolled vomiting High fever or shaking chills Overall worsening Prescriptions: Doxycycline Monohydrate 100 mg PO BID #20 capsule Referrals: HERO HUGHES MD [Primary Care Provider] - Follow up as needed
[2019-05-04 06:50] LABS: TROPONIN I < 0.012 ng/mL
--- NOTE | 2019-05-04 07:32 | EKG REPORT ---
SEVERITY:- OTHERWISE NORMAL ECG - SINUS TACHYCARDIA : Confirmed by: Dash Sheridan MD 04-May-2019 07:31:31
[2019-05-04] MEDS ORDERED: NORMAL SALINE 500 ML IV ONE (07:37)
[2019-05-04] MEDS ORDERED: ONDANSETRON HCL INJ/PF 4 MG/2 ML SDV IV ONE (07:39)
[2019-05-04] MEDS ORDERED: DOXYCYCLINE HYCLATE 100 MG TABLET PO ONE ×2 (10:12→12:25)
[2019-05-04] MEDS ORDERED: 1/2 NORMAL SALINE 1,000 ML IV PRN (18:36)
--- NOTE | 2019-05-04 21:39 | RADIOLOGY REPORT (SQ) ---
NUCLEAR MEDICINE LUNG PERFUSION IMAGING Clinical indication: Shortness of breath. Comparison: None. Correlation: Chest radiography today Technique: Perfusion imaging was obtained as per standard protocol after intravenous administration of 5.0 mCi of technetium 99m labeled MAA. Findings: Homogeneous localization of radiotracer is identified on perfusion imaging. No segmental or subsegmental defects are identified to suggest a pulmonary embolus. Impression: Homogeneous localization of radiotracer. No scintigraphic evidence of pulmonary embolus.
--- NOTE | 2019-05-04 22:17 | PDOC H&P ---
History of Present Illness Admission Date/PCP: 05/04/19 10:42 JJ HUGHES MD History of Present Illness: JULIANN OROZCO is a 68 year old female, She came to the emergency room for evaluation of cough, generalized weakness, the cough is nonproductive she has myasthenia gravis, wheelchair-bound she also on oxygen. The history was that she slipped off the bedside commode earlier this morning and she gradually went down to the floor, family members had difficulty getting her up and they decided to bring her to emergency room. There was no diarrhea no vomiting there was no pain no loss of consciousness she had a nonproductive cough for 1months, a chest x-ray was done which was negative for any acute disease, in the emergency room she was given fluid she was about to be discharged from the ER the discharge nurse noticed a drop in the oxygen saturation, in the 80s and also increased pulse rate because of these new findings the ED physician decided to have her admitted to the hospital,I ordered a VQ scan to rule out PE, this was negative for PE, CTA could not be done because she has allergy to contrast. Past Medical History Cardiac Medical History: Reports: Hypertension Neurological Medical History: Reports: Other - Myasthenia gravis Musculoskeltal Medical History: Reports: Arthritis - osteoarthritis knees bilaterally Social History Smoking Status: Never Smoker Frequency of Alcohol Use: None Hx Recreational Drug Use: No Drugs: None Hx Prescription Drug Abuse: No Family History Family History: None, Reviewed & Not Pertinent Parental Family History Reviewed: Yes Children Family History Reviewed: Yes Sibling(s) Family History Reviewed.: Yes Medication/Allergy Home Medications: Amlodipine Besylate [Norvasc 10 mg Tablet] 10 mg PO DAILY 05/04/19 Aspirin [Aspirin 81 mg Chewable Tablet] 81 mg PO DAILY 05/04/19 Clopidogrel Bisulfate [Plavix 75 mg Tablet] 75 mg PO DAILY 05/04/19 Metoprolol Tartrate [Lopressor 25 mg Tablet] 12.5 mg PO BID 05/04/19 Pyridostigmine [place] [Mestinon 60 mg Tablet] 60 mg PO QID 05/04/19 Allergies/Adverse Reactions: egg Allergy (Unknown, Verified 03/16/19 12:53) bee pollen [Bee Pollen] Allergy (Verified 03/16/19 12:53) Penicillins Allergy (Verified 03/16/19 12:53) Iodinated Contrast Media Adverse Reaction (Verified 03/16/19 12:53) Abnormal behavior Review of Systems Constitutional: ABSENT: chills, fever(s), headache(s), weight gain, weight loss Eyes: ABSENT: visual disturbances Ears: ABSENT: hearing changes Cardiovascular: ABSENT: chest pain, dyspnea on exertion, edema, orthropnea, p alpitations Respiratory: PRESENT: cough. ABSENT: hemoptysis Gastrointestinal: ABSENT: abdominal pain, constipation, diarrhea, hematemesis, hematochezia, nausea, vomiting Genitourinary: ABSENT: dysuria, hematuria Musculoskeletal: ABSENT: joint swelling Integumentary: ABSENT: rash, wounds Neurological: ABSENT: abnormal gait, abnormal speech, confusion, dizziness, focal weakness, syncope Psychiatric: ABSENT: anxiety, depression, homidical ideation, suicidal ideation Endocrine: ABSENT: cold intolerance, heat intolerance, menstrual abnormalities, polydipsia, polyuria Hematologic/Lymphatic: ABSENT: easy bleeding, easy bruising, lymphadenopathy Physical Exam Vital Signs: Temp Pulse Resp BP Pulse Ox 98.2 F 66 18 138/54 H 100 05/04/19 15:40 05/04/19 15:40 05/04/19 15:40 05/04/19 15:40 05/04/19 15:40 Intake & Output 05/03/19 05/04/19 05/05/19 06:59 06:59 06:59 Intake Total 740 Balance 740 Weight 84.5 kg 79.6 kg Head exam: PRESENT: atraumatic, normocephalic Eye exam: PRESENT: PERRLA Ear exam: PRESENT: normal external ear exam Mouth exam: PRESENT: moist, tongue midline Neck exam: PRESENT: full ROM Respiratory exam: PRESENT: clear to auscultation lucy Cardiovascular exam: PRESENT: RRR, +S1, +S2 Pulses: PRESENT: normal dorsalis pedis pul, +2 pedal pulses bilateral Vascular exam: PRESENT: normal capillary refill GI/Abdominal exam: PRESENT: normal bowel sounds, soft Rectal exam: PRESENT: deferred Neurological exam: PRESENT: alert, CN II-XII grossly intact Psychiatric exam: PRESENT: appropriate affect, normal mood Skin exam: PRESENT: dry, intact, warm. ABSENT: cyanosis, rash Results Laboratory Results: 05/04/19 04:51 05/04/19 05:38 05/04/19 05/04/19 05/04/19 04:51 04:51 04:51 WBC 7.9 RBC 4.35 Hgb 13.6 Hct 39.0 MCV 90 MCH 31.3 MCHC 35.0 RDW 12.8 Plt Count 305 Seg Neutrophils % 75.3 VBG pH 7.35 VBG pCO2 56.3 VBG HCO3 30.5 VBG Base Excess 3.5 Sodium Cancelled Potassium Cancelled Chloride Cancelled Carbon Dioxide Cancelled Anion Gap Cancelled BUN Cancelled Creatinine Cancelled Est GFR ( Amer) Cancelled Est GFR (Non-Af Amer) Cancelled Glucose Cancelled Lactic Acid Calcium Cancelled Total Bilirubin Cancelled AST Cancelled Alkaline Phosphatase Cancelled Total Protein Cancelled Albumin Cancelled Urine Color Urine Appearance Urine pH Ur Specific [place] Urine Protein Urine Glucose (UA) Urine Ketones Urine Blood Urine RBC (Auto) 05/04/19 05/04/19 05/04/19 04:51 05:38 05:46 WBC RBC Hgb Hct MCV MCH MCHC RDW Plt Count Seg Neutrophils % VBG pH VBG pCO2 VBG HCO3 VBG Base Excess Sodium 140.0 Potassium 4.4 Chloride 107 Carbon Dioxide 29 Anion Gap 4 L BUN 6 L Creatinine 0.53 Est GFR ( Amer) > 60 Est GFR (Non-Af Amer) Glucose 105 Lactic Acid 1.0 Calcium 10.0 Total Bilirubin 0.7 AST 25 Alkaline Phosphatase 100 Total Protein 7.3 Albumin 3.9 Urine Color COLORLESS Urine Appearance CLEAR Urine pH 8.0 Ur Specific [place] 1.003 Urine Protein NEGATIVE Urine Glucose (UA) NEGATIVE Urine Ketones NEGATIVE Urine Blood NEGATIVE Urine RBC (Auto) 0 05/04/19 05/04/19 08:10 11:18 WBC RBC Hgb Hct MCV MCH MCHC RDW Plt Count Seg Neutrophils % VBG pH VBG pCO2 VBG HCO3 VBG Base Excess Sodium Potassium Chloride Carbon Dioxide Anion Gap BUN Creatinine Est GFR ( Amer) Est GFR (Non-Af Amer) Glucose Lactic Acid 1.4 0.8 Calcium Total Bilirubin AST Alkaline Phosphatase Total Protein Albumin Urine Color Urine Appearance Urine pH Ur Specific [place] Urine Protein Urine Glucose (UA) Urine Ketones Urine Blood Urine RBC (Auto) 05/04/19 05/04/19 04:51 05:38 Troponin I Cancelled < 0.012 NT-Pro-B Natriuret Pep 97 Impressions: Chest X-Ray 03/24/20 04:50 IMPRESSION: No acute findings visualized in the chest. Assessment & Plan - Diagnosis (1) Dehydration Is this a current diagnosis for this admission?: Yes Plan: Patient with dehydration admitted for hydration with fluid (2) Acute bronchitis Qualifiers: Bronchitis organism: unspecified organism Qualified Code(s): J20.9 - Acute bronchitis, unspecified Is this a current diagnosis for this admission?: Yes Plan: She has acute bronchitis most likely viral (3) Myasthenia gravis Is this a current diagnosis for this admission?: Yes (4) Ambulatory dysfunction Is this a current diagnosis for this admission?: Yes
[2019-05-04] MEDS: AMLODIPINE BESYLATE 10 MG TABLET PO SCH (22:48)
[2019-05-04] MEDS: CLOPIDOGREL BISULFATE 75 MG TABLET PO SCH (22:48)
[2019-05-04] MEDS: PYRIDOSTIGMINE BROMIDE 60 MG TABLET PO SCH (22:49)
[2019-05-05] MEDS ORDERED: 1/2 NORMAL SALINE 1,000 ML IV PRN (08:29)
[2019-05-05] MEDS: ASPIRIN 81 MG TABLET, CHEWABLE PO SCH (09:16)
[2019-05-05] MEDS: PYRIDOSTIGMINE BROMIDE 60 MG TABLET PO SCH ×4 (09:16→22:06)
[2019-05-05] MEDS: CLOPIDOGREL BISULFATE 75 MG TABLET PO SCH (09:16)
[2019-05-05] MEDS: AMLODIPINE BESYLATE 10 MG TABLET PO SCH (09:16)
[2019-05-05] MEDS: GUAIFENESIN 600 MG TABLET.SA PO SCH ×3 (10:46→22:06)
[2019-05-05] MEDS: DOXYCYCLINE HYCLATE 100 MG TABLET PO SCH ×2 (10:46→22:06)
[2019-05-05] MEDS: FAMOTIDINE 20 MG TABLET PO SCH ×2 (10:46→22:06)
--- NOTE | 2019-05-05 10:59 | PDOC PROGRESS REPORT ---
Subjective Progress Note for:: 05/05/19 Subjective:: Patient is currently doing fair Since VQ scan is negative chest x-ray is negative Is denied any chest pain no short of breath Reason For Visit: ACUTE BRONCHITIS, DEHYDRATION, MYASTHENIA GRAVIS Physical Exam Vital Signs: Temp Pulse Resp BP Pulse Ox 98.9 F 63 16 116/63 100 05/05/19 07:47 05/05/19 07:47 05/05/19 07:47 05/05/19 07:47 05/05/19 07:47 Intake & Output 05/04/19 05/05/19 05/06/19 06:59 06:59 06:59 Intake Total 940 Output Total 1000 Balance -60 Weight 84.5 kg 77.5 kg General appearance: PRESENT: no acute distress, well-developed, well-nourished Head exam: PRESENT: atraumatic, normocephalic Eye exam: PRESENT: conjunctiva pink, EOMI, PERRLA. ABSENT: scleral icterus Ear exam: PRESENT: normal external ear exam Mouth exam: PRESENT: moist, tongue midline Neck exam: PRESENT: full ROM. ABSENT: carotid bruit, JVD, lymphadenopathy, thyromegaly Respiratory exam: PRESENT: clear to auscultation lucy Cardiovascular exam: PRESENT: RRR. ABSENT: diastolic murmur, rubs, systolic murmur Pulses: PRESENT: normal dorsalis pedis pul, +2 pedal pulses bilateral Vascular exam: PRESENT: normal capillary refill GI/Abdominal exam: PRESENT: normal bowel sounds, soft. ABSENT: distended, guarding, mass, organolmegaly, rebound, tenderness Rectal exam: PRESENT: deferred Neurological exam: PRESENT: alert, awake, oriented to person, oriented to place, oriented to time, oriented to situation, CN II-XII grossly intact. ABSENT: motor sensory deficit Psychiatric exam: PRESENT: appropriate affect, normal mood. ABSENT: homicidal ideation, suicidal ideation Skin exam: PRESENT: dry, intact, warm. ABSENT: cyanosis, rash Results Laboratory Results: 05/04/19 04:51 05/04/19 05:38 05/04/19 11:18 Lactic Acid 0.8 05/04/19 05/04/19 04:51 05:38 Troponin I Cancelled < 0.012 NT-Pro-B Natriuret Pep 97 Impressions: Chest X-Ray 05/04/19 04:50 IMPRESSION: No acute findings visualized in the chest. Assessment & Plan - Diagnosis (1) Acute bronchitis Qualifiers: Bronchitis organism: unspecified organism Qualified Code(s): J20.9 - Acute bronchitis, unspecified Is this a current diagnosis for this admission?: Yes (2) Dehydration Is this a current diagnosis for this admission?: Yes (3) Myasthenia gravis Is this a current diagnosis for this admission?: Yes (4) Ambulatory dysfunction Is this a current diagnosis for this admission?: Yes (5) Hypertension Qualifiers: Hypertension type: unspecified Qualified Code(s): I10 - Essential (primary) hypertension Is this a current diagnosis for this admission?: Yes - Time Time Spent with patient: 15-24 minutes Level of Care: TELE Medications reviewed and adjusted accordingly: Yes Anticipated discharge: Home with Homehealth Within: within 24 hours - Plan Summary Plan Summary: Cut down the IV fluids
[2019-05-06 05:04] LABS: ABSOLUTE BASOPHILS # (AUTO) 0.1 10^3/uL (0.0-0.2); ABSOLUTE EOSINOPHILS # (AUTO) 0.2 10^3/uL (0.0-0.6); ABSOLUTE LYMPHOCYTES (AUTO) 1.5 10^3/uL (0.5-4.7); ABSOLUTE MONOCYTES (AUTO) 0.6 10^3/uL (0.1-1.4); ABSOLUTE NEUT (AUTO) 4.7 10^3/uL (1.7-8.2); BASOPHILS % (AUTO) 1.3 % (0-2); EOSINOPHILS % (AUTO) 2.3 % (0-6); HEMATOCRIT 39.3 % (36.0-47.0); HEMOGLOBIN 13.2 g/dL (12.0-15.5); LYMPHOCYTES % (AUTO) 21.6 % (13-45); MEAN CORPUSCULAR HEMOGLOBIN 30.4 pg (27.0-33.4); MEAN CORPUSCULAR HGB CONC 33.6 g/dL (32.0-36.0); MEAN CORPUSCULAR VOLUME 90 fl (80-97); MONOCYTES % (AUTO) 8.4 % (3-13); PLATELET COUNT 292 10^3/uL (150-450); RED BLOOD COUNT 4.35 10^6/uL (3.72-5.28); RED CELL DISTRIBUTION WIDTH 12.3 % (11.5-14.0); SEGMENTED NEUTROPHILS % (AUTO) 66.4 % (42-78); TOTAL CELLS COUNTED % (AUTO) 100 %; WHITE BLOOD COUNT 7.1 10^3/uL (4.0-10.5)
[2019-05-06 05:21] LABS: BLOOD UREA NITROGEN 11 mg/dL (7-20); CALCIUM 9.6 mg/dL (8.4-10.2); CARBON DIOXIDE 30 mmol/L (22-30); GLUCOSE 85 mg/dL (75-110); POTASSIUM 4.2 mmol/L (3.6-5.0)
[2019-05-06 05:26] LABS: CHLORIDE 108 mmol/L (98-107)
[2019-05-06 05:30] LABS: ANION GAP 2 (5-19)
[2019-05-06] MEDS: ASPIRIN 81 MG TABLET, CHEWABLE PO SCH (09:39)
[2019-05-06] MEDS: PYRIDOSTIGMINE BROMIDE 60 MG TABLET PO SCH (09:40)
[2019-05-06] MEDS: AMLODIPINE BESYLATE 10 MG TABLET PO SCH (09:40)
[2019-05-06] MEDS: CLOPIDOGREL BISULFATE 75 MG TABLET PO SCH (09:40)
--- NOTE | 2019-05-06 10:08 | PDOC DISCHARGE SUMMARY ---
Impression - Admit/DC Date/PCP Admission Date/Primary Care Provider: 05/04/19 10:42 JJ HUGHES MD Discharge Date: 05/06/19 - Discharge Diagnosis (1) Acute bronchitis Is this a current diagnosis for this admission?: Yes (2) Dehydration Is this a current diagnosis for this admission?: Yes (3) Myasthenia gravis Is this a current diagnosis for this admission?: Yes (4) Ambulatory dysfunction Is this a current diagnosis for this admission?: Yes (5) Hypertension Is this a current diagnosis for this admission?: Yes - Additional Information Discharge Diet: Regular Referrals: JJ HUGHES MD [Primary Care Provider] - 05/20/19 10:45 am (f/u neurology make appt to dr booker ) Prescriptions: Guaifenesin [Mucinex Sr 600 mg Tablet.sa] 600 mg PO Q12 #60 tablet.sa Famotidine [Pepcid 20 mg Tablet] 20 mg PO Q12 #60 tablet Doxycycline Hyclate [Vibramycin 100 mg Tablet] 100 mg PO Q12 #10 tablet Home Medications: Amlodipine Besylate [Norvasc 10 mg Tablet] 10 mg PO DAILY 05/04/19 Aspirin [Aspirin 81 mg Chewable Tablet] 81 mg PO DAILY 05/04/19 Clopidogrel Bisulfate [Plavix 75 mg Tablet] 75 mg PO DAILY 05/04/19 Metoprolol Tartrate [Lopressor 25 mg Tablet] 12.5 mg PO BID 05/04/19 Doxycycline Hyclate [Vibramycin 100 mg Tablet] 100 mg PO Q12 #10 tablet 05/06/19 Famotidine [Pepcid 20 mg Tablet] 20 mg PO Q12 #60 tablet 05/06/19 Guaifenesin [Mucinex Sr 600 mg Tablet.sa] 600 mg PO Q12 #60 tablet.sa 05/06/19 Pyridostigmine [place] [Mestinon 60 mg Tablet] 60 mg PO QID #0 tablet 05/06/19 Pyridostigmine [place] [Mestinon 60 mg Tablet] 60 mg PO QID #120 05/06/19 History of Present Illiness History of Present Illness: JULIANN OROZCO is a 68 year old female Patient was admitting in the hospital for the dehydration's hypoxia and a cough Hospital Course Hospital Course: Is a 68-year-old female with a significant history of the myasthenia gravis severe osteoarthritis very difficult to follow-up because of the patient's have issue with the transportations and the noncompliance came to the emergency department with a complaint of some mild cough and not feeling well patient initial work-up is negative patient is almost ready to discharge and found little bit hypoxic with the 89%'s O2 saturations Patient had a VQ scan was done was negative for any PE patient's otherwise per start on the doxycycline's and patient responds very well and IV fluids Patient's chest x-ray is clear All blood work is stable patient O2 sat is more than 95% and no oxygen required patient is back to the baseline wants to go home Will arrange the home health and physical therapy and discussed with the patient is follow-up with the neurology with ongoing problem with the myasthenia gravis patient also see 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 manager for that to which patient have a noncompliance to follow-up Patient is currently live with 2 son and the daughters discussed with them to close follow-up Physical Exam Vital Signs: Temp Pulse Resp BP Pulse Ox 98.4 F 86 18 148/71 H 97 05/06/19 07:36 05/06/19 07:36 05/06/19 07:36 05/06/19 07:36 05/06/19 07:36 Intake & Output 05/05/19 05/06/19 05/07/19 06:59 06:59 06:59 Intake Total 940 1020 Output Total 1000 3000 - Weight 77.5 kg 76.3 kg General appearance: PRESENT: no acute distress, well-developed, well-nourished Head exam: PRESENT: atraumatic, normocephalic Eye exam: PRESENT: conjunctiva pink, EOMI, PERRLA. ABSENT: scleral icterus Ear exam: PRESENT: normal external ear exam Mouth exam: PRESENT: moist, tongue midline Neck exam: ABSENT: carotid bruit, JVD, lymphadenopathy, thyromegaly Respiratory exam: PRESENT: decreased breath sounds. ABSENT: rales, rhonchi, wheezes Cardiovascular exam: PRESENT: RRR. ABSENT: diastolic murmur, rubs, systolic murmur Pulses: PRESENT: normal dorsalis pedis pul Vascular exam: PRESENT: normal capillary refill GI/Abdominal exam: PRESENT: normal bowel sounds, soft. ABSENT: distended, guarding, mass, organolmegaly, rebound, tenderness Rectal exam: PRESENT: deferred Extremities exam: PRESENT: full ROM. ABSENT: calf tenderness, clubbing, pedal edema Neurological exam: PRESENT: alert, awake, oriented to person, oriented to place, oriented to time, oriented to situation, CN II-XII grossly intact. ABSENT: motor sensory deficit Psychiatric exam: PRESENT: appropriate affect, normal mood. ABSENT: homicidal ideation, suicidal ideation Skin exam: PRESENT: dry, intact, warm. ABSENT: cyanosis, rash Results Laboratory Results: WBC 7.1 10^3/uL (4.0-10.5) 05/06/19 04:44 RBC 4.35 10^6/uL (3.72-5.28) 05/06/19 04:44 Hgb 13.2 g/dL (12.0-15.5) 05/06/19 04:44 Hct 39.3 % (36.0-47.0) 05/06/19 04:44 MCV 90 fl (80-97) 05/06/19 04:44 MCH 30.4 pg (27.0-33.4) 05/06/19 04:44 MCHC 33.6 g/dL (32.0-36.0) 05/06/19 04:44 RDW 12.3 % (11.5-14.0) 05/06/19 04:44 Plt Count 292 10^3/uL (150-450) 05/06/19 04:44 Lymph % (Auto) 21.6 % (13-45) 05/06/19 04:44 [place] % (Auto) 8.4 % (3-13) 05/06/19 04:44 Eos % (Auto) 2.3 % (0-6) 05/06/19 04:44 Baso % (Auto) 1.3 % (0-2) 05/06/19 04:44 Absolute Neuts (auto) 4.7 10^3/uL (1.7-8.2) 05/06/19 04:44 Absolute Lymphs (auto) 1.5 10^3/uL (0.5-4.7) 05/06/19 04:44 Absolute Monos (auto) 0.6 10^3/uL (0.1-1.4) 05/06/19 04:44 Absolute Eos (auto) 0.2 10^3/uL (0.0-0.6) 05/06/19 04:44 Absolute Basos (auto) 0.1 10^3/uL (0.0-0.2) 05/06/19 04:44 Seg Neutrophils % 66.4 % (42-78) 05/06/19 04:44 VBG pH 7.35 (7.30-7.42) 05/04/19 04:51 VBG pCO2 56.3 mmHg (35-63) 05/04/19 04:51 VBG HCO3 30.5 mmol/L (20-32) 05/04/19 04:51 VBG Base Excess 3.5 mmol/L 05/04/19 04:51 Sodium 139.9 mmol/L (137-145) 05/06/19 04:44 Potassium 4.2 mmol/L (3.6-5.0) 05/06/19 04:44 Chloride 108 mmol/L (98-107) H 05/06/19 04:44 Carbon Dioxide 30 mmol/L (22-30) 05/06/19 04:44 Anion Gap 2 (5-19) L 05/06/19 04:44 BUN 11 mg/dL (7-20) 05/06/19 04:44 Creatinine 0.68 mg/dL (0.52-1.25) 05/06/19 04:44 Est GFR ( Amer) > 60 (>60) 05/06/19 04:44 Est GFR (Non-Af Amer) Cancelled 05/04/19 04:51 Est GFR (MDRD) Non-Af > 60 (>60) 05/06/19 04:44 Glucose 85 mg/dL (75-110) 05/06/19 04:44 POC Glucose 110 mg/dL (70-110) 05/04/19 04:55 Lactic Acid 0.8 mmol/L (0.7-2.1) 05/04/19 11:18 Calcium 9.6 mg/dL (8.4-10.2) 05/06/19 04:44 Total Bilirubin 0.7 mg/dL (0.2-1.3) 05/04/19 05:38 Direct Bilirubin 0.0 mg/dL (0.0-0.4) 05/04/19 05:38 Neonat Total Bilirubin Not Reportable 05/04/19 05:38 Neonat Direct Bilirubin Not Reportable 05/04/19 05:38 Neonat Indirect Bili Not Reportable 05/04/19 05:38 AST 25 U/L (14-36) 05/04/19 05:38 ALT 18 U/L (<35) 05/04/19 05:38 Alkaline Phosphatase 100 U/L (38-126) 05/04/19 05:38 Troponin I < 0.012 ng/mL 05/04/19 05:38 NT-Pro-B Natriuret Pep 97 pg/mL (<125) 05/04/19 05:38 Total Protein 7.3 g/dL (6.3-8.2) 05/04/19 05:38 Albumin 3.9 g/dL (3.5-5.0) 05/04/19 05:38 EGFR Cancelled 05/04/19 04:51 Urine Color COLORLESS 05/04/19 05:46 Urine Appearance CLEAR 05/04/19 05:46 Urine pH 8.0 (5.0-9.0) 05/04/19 05:46 Ur Specific [place] 1.003 05/04/19 05:46 Urine Protein NEGATIVE mg/dL (NEGATIVE) 05/04/19 05:46 Urine Glucose (UA) NEGATIVE mg/dL (NEGATIVE) 05/04/19 05:46 Urine Ketones NEGATIVE mg/dL (NEGATIVE) 05/04/19 05:46 Urine Blood NEGATIVE (NEGATIVE) 05/04/19 05:46 Urine Nitrite (Reflex) NEGATIVE (NEGATIVE) 05/04/19 05:46 Urine Bilirubin NEGATIVE (NEGATIVE) 05/04/19 05:46 Urine Urobilinogen NEGATIVE mg/dL (<2.0) 05/04/19 05:46 Leukocyte Esterase Rfl NEGATIVE (NEGATIVE) 05/04/19 05:46 Urine RBC (Auto) 0 /HPF 05/04/19 05:46 Urine Bacteria (Auto) TRACE /HPF 05/04/19 05:46 Urine WBC (Reflex) < 1 /HPF 05/04/19 05:46 Squamous Epi Cells Auto <1 /HPF 05/04/19 05:46 Urine Mucus (Auto) RARE /LPF 05/04/19 05:46 Urine Ascorbic Acid NEGATIVE (NEGATIVE) 05/04/19 05:46 Influenza A (Rapid) NEGATIVE (NEGATIVE) 05/04/19 05:09 Influenza B (Rapid) NEGATIVE (NEGATIVE) 05/04/19 05:09 Group A Strep Rapid NEGATIVE (NEGATIVE) 05/04/19 05:09 05/04/19 05/04/19 04:51 05:38 Troponin I Cancelled < 0.012 NT-Pro-B Natriuret Pep 97 Impressions: Chest X-Ray 05/04/19 04:50 IMPRESSION: No acute findings visualized in the chest. Plan Time Spent: Greater than 30 Minutes - Follow-up with the neurology follow in office in 2 weeks Stroke Is this a Stroke Patient?: No Acute Heart Failure - Is this a Heart Failure Patient?: No
[2019-05-06] MEDS: GUAIFENESIN 600 MG TABLET.SA PO SCH (11:03)
[2019-05-06] MEDS: FAMOTIDINE 20 MG TABLET PO SCH ×2 (11:04→11:22)
[2019-05-06] MEDS: DOXYCYCLINE HYCLATE 100 MG TABLET PO SCH ×2 (11:04→11:22)
[2019-05-06 11:47] VITALS: BP 150/66
== END 2019-05-06 13:45 | disposition home health service (06) ==
LOC: ER 04:31 → EH 10:42 → INTOOBSV 10:42 → 4S 13:32
PROVIDERS: ADMIT Family Medicine; ATTEND Family Medicine
DX: J20.9 Acute bronchitis, unspecified (principal); E86.0 Dehydration; R26.9 Unspecified abnormalities of gait and mobility; I10 Essential (primary) hypertension; R09.02 Hypoxemia; M17.0 Bilateral primary osteoarthritis of knee; H91.90 Unspecified hearing loss, unspecified ear; R00.0 Tachycardia, unspecified; R60.0 Localized edema; Z99.3 Dependence on wheelchair; Z99.81 Dependence on supplemental oxygen; Z79.82 Long term (current) use of aspirin; Z91.041 Radiographic dye allergy status; Z79.02 Long term (current) use of antithrombotics/antiplatelets; Z88.0 Allergy status to penicillin
CPT/HCPCS: 93005; 99285; 96360; 36415 ×2; 87040; 87070; 87880; 82962; 83605; 85025 ×2; 80048; 80053; 81001; 84484; 82803; 87804; 83880; 71045; 78580; 93010; 97530; 97116; 97163; G0378 ×2; C1758 ×2; A9540; A9270 ×6; J7040; Q9969